=== PATIENT | male | born 1950 | race Caucasian/White ===

== ENCOUNTER → 2021-04-30 10:37 | Outpatient (BNVA) | payer OTHER, SELFPAY | PROVIDERS: PCP Internal Medicine; Visit Provider Urology | DX: E29.1 Testicular hypofunction (principal) | CPT/HCPCS: 99202 ==

== ENCOUNTER 2021-05-27 16:19 | Emergency (ER) | payer OTHER, SELFPAY ==
--- NOTE | ~2021-05-27 | XR_ITS ---
EXAMINATION: XR HUMERUS, LEFT CLINICAL INFORMATION: Fall. Left arm laceration. COMPARISON: None TECHNIQUE: AP and lateral views of the left humerus. FINDINGS: No acute fracture or dislocation. Severe glenohumeral joint space narrowing with bony remodeling and large marginal osteophytes. More moderate acromioclavicular osteoarthritis. Soft tissue defect along the medial aspect of the distal upper arm, consistent with the reported laceration. There is a cluster of tiny densities within the soft tissue laceration which could represent tiny foreign bodies measuring up to 0.2 cm. XR/XR humerus LT IMPRESSION: 1. Prominent soft tissue laceration along the medial aspect of the distal upper arm with possible tiny radiopaque foreign bodies. 2. No acute fracture or dislocation.
--- NOTE | ~2021-05-27 | CT_ITS ---
EXAMINATION: CT HEAD WITHOUT CONTRAST CT CERVICAL SPINE WITHOUT CONTRAST CLINICAL INFORMATION: Fall with head injury. No loss of consciousness. COMPARISON: None TECHNIQUE: Contiguous axial imaging was performed from the skull base to vertex without intravenous administration of contrast. Contiguous axial CT images of the cervical spine were obtained without contrast. Sagittal and coronal reformats were provided and reviewed. This CT examination was performed using dose optimization techniques as appropriate, variously including the following: *Automated exposure control. *Adjustment of mA and/or kV according to patient size (this includes techniques or standardized protocols for targeted exams where dose is matched to indication/reason for exam; i.e. extremities or head). *Use of iterative reconstruction technique. DLP: 1163 mGy-cm FINDINGS: HEAD: There is no evidence of acute intracranial hemorrhage or territorial infarction. No abnormal mass effect or midline shift is seen. Flfm-hu-[id number] matter differentiation is well preserved. No extra-axial fluid collections are identified. The ventricles are normal in size. There is no abnormal attenuation within the brain parenchyma. The osseous structures and soft tissues are normal. The mastoid air cells and visualized portions of the paranasal sinuses are well aerated. CERVICAL SPINE: Mild reversal of the normal cervical lordosis, which may be positional or related to muscular spasm. Minimal grade 1 anterolisthesis of C2 on C3. No acute fracture or subluxation. No loss of vertebral body height. Loss of intervertebral disc height with endplate degenerative changes and endplate osteophytes at C3 through C7. Mild multilevel bilateral facet arthropathy. No lytic or blastic osseous lesion. Unremarkable prevertebral soft tissues. No abnormal soft tissue mass or fluid collection. Thyroid within normal limits. Biapical nodular pleural thickening with emphysematous changes. Prominent multilevel bilateral neural foraminal stenosis. CT/CT cervical spine wo con IMPRESSION: HEAD: No acute intracranial hemorrhage or mass effect. CERVICAL SPINE: No acute fracture or subluxation. Mild reversal of the normal cervical lordosis, which may be positional or related to muscular spasm. Minimal grade 1 anterolisthesis of C2 on C3. Degenerative disc disease with bilateral facet arthropathy and neural foraminal stenosis at C3-C7.
[2021-05-27 16:22] VITALS: BP 147/84; PULSE 94; RESP 18; TEMP 37; O2SAT 97; BMI 24.6
[2021-05-27] MEDS: Acetaminophen 325 MG TABLET 975 MG PO (16:55)
[2021-05-27] MEDS: Diphth,Pertus(ACell),Tet Adult 0.5 ML SYRINGE IM (16:57)
[2021-05-27] MEDS: Lidocaine HCl 1 % MPF 5 ML VIAL SUBCUT (16:58)
--- NOTE | 2021-05-27 18:03 | ED.WOUNDLAC ---
HPI - Wound/Laceration General Chief Complaint: Wound/Laceration Stated Complaint: Fall Time Seen by Provider: 05/27/21 16:48 Source: patient Mode of arrival: ambulatory Limitations: no limitations History of Present Illness HPI narrative: Patient reports he was standing on a pole slipped and fell hitting his head on the right side and lacerating his left upper arm. Denies head injury or loss of consciousness or any other injuries complaints or concerns. Is not on any blood thinners. Is not up-to-date on tetanus. Onset (ago): minute(s) (Prior to arrival) Extremity Location: left: arm Place: outdoors Patient tetanus UTD: No Context: accidental Associated symptoms: pain Treatments prior to arrival: bandage Related Data Home Medications Medication Instructions Recorded Confirmed lisinopril 20 1 tab PO DAILY 04/30/21 mg-hydrochlorothiazide 12.5 mg tablet Previous Rx's Medication Instructions Recorded cephalexin 500 mg capsule 500 mg PO Q6H 7 Days #28 cap 05/27/21 oxycodone-acetaminophen 5 mg-325 1 tab PO Q6H PRN #5 tab 05/27/21 mg tablet (Percocet) Allergies Allergy/AdvReac Type Severity Reaction Status Date / Time No Known Allergies Allergy Mild N/A Verified 04/30/21 11:30 Review of Systems Review of Systems: Constitutional : No Fever, No Chills, Cardiovascular : No Chest Pain, No SOB Respiratory : No Dyspnea Gastrointestinal : No abdominal pain Musculoskeletal : No Joint Swelling Skin : positive skin laceration, No Foreign bodies, No rash, No surrounding erythema Neuro : Positive head injury, no loss of consciousness, no headaches, no focal weakness, no dizziness, no paresthesias, No Weakness, No Numbness/tingling Psych : No SI/HI/thoughts of self injury Yes all other systems are reviewed and are negative [facility] Past Medical History Attestation statement: The following information was validated with the patient. Medical History Anemia Eczema Hematuria Hypogonadism in male Tubular adenoma Social History Social History Advance Directives: No Advance Directives Information Provided: No Physical Exam Vital Signs: Vital Signs: Last Vital Signs Temp 98.6 F 05/27/21 16:22 Pulse 94 05/27/21 16:22 Resp 18 05/27/21 16:22 BP 147/84 H 05/27/21 16:22 Pulse Ox 97 05/27/21 16:22 Body Mass Index 24.6 vital signs have been reviewed as normal and appeared to be correct. Blood pressure hypertensive 147/84 Heart rate normal. Respiration rate normal. Temperature normal. Oxygen saturation normal. Appearance: Alert. Oriented X3. No acute distress. Head: Normal external exam. Normocephalic. Atraumatic. No Comer signs noted. No raccoon eyes noted Eyes: PERRLA. EOMI. Conjunctiva and sclera normal. Eyelids normal. ENT: Pharynx normal. Uvula midline. Moist mucous membranes. Neck: Normal inspection. Neck supple. FROM. No adenopathy. No meningeal signs. Nontender. No mid cervical or paraspinous musculature tenderness noted. No step-offs or deformities noted. Patient neuro intact balance this in all 4 extremities. Reflexes intact bilaterally this in all 4 extremities. CVS: Normal heart rate and rhythm. Heart sound normal. Pulses normal throughout. No murmurs/rales/gallops. Respiratory: No respiratory distress. Painless inspiration. Breath sounds normal. No wheezes/rales/rhonchi noted. Chest nontender. No accessory muscle usage noted or decreased air movement noted. Abdomen: Soft and nontender. Bowel sounds normal in all 4 quadrants. No distention noted. No organomegaly noted. No visible injury noted. Back: Full range of motion noted. No rashes/lesion/induration/fluctuance or signs of infection noted. Skin: Patient with 4 cm intermediate flap laceration to left upper arm right above the elbow no foreign bodies or active bleeding or signs of infection noted. The rest of the Skin warm and dry. Normal skin color. Normal skin turgor. No additional rashes/lesions noted. Extremities: Extremities exhibit normal range of motion. Extremities nontender. Neuro: Oriented X 3. No motor deficit. No sensory deficit. Reflexes normal. Normal steady gait. No focal neuro deficits noted. Vascular: + radial pulses/+ 2 distal pedal pulses/+2 dorsalis pedis b/l. Normal cap refill. No cyanosis noted to upper extremity nails and lower extremity toes nails. Course Course Course Narrative: 71-year-old male who is not on any blood thinners presenting to the ED with complaints of a fall and a laceration to his left upper arm after he slipped and fell while on a pole. Had head injury although no loss of consciousness. Not on any blood thinners. Tetanus not updated at this time. On exam patient is alert and oriented x3. No focal deficits are noted. Not in any acute distress. Has a 4 cm intermediate flap laceration to left upper arm no foreign bodies or signs of infection or active bleeding noted. Therefore CT scan of brain/cervical spine ordered at this time. Humerus x-ray ordered at this time. If CT scan of cervical spine and brain along with x-ray of humerus within normal limits will DC home with symptomatic treatment. Patient is now status post laceration repair was 10 sutures placed. Patient tolerated procedure well. No complications. Tetanus was updated at this time. Will DC home with symptomatic treatment antibiotics and instructions to return in 10-14 days for suture removal and to return if any new or worsening symptoms sooner than that. Patient understands agrees with this plan. Reevaluation(s) Reevaluation #1: - CT scan of brain/cervical spine revealed chronic changes no acute processes were noted. Left humerus x-ray reveals soft tissue swelling and possible radiopaque foreign bodies although on my exam I was unable to see any foreign bodies and I irrigated the wound multiple times. Therefore will DC home with antibiotics and explained to the patient that he may have foreign bodies in there and to follow up if any new or worsening symptoms although return in 10 days for suture removal. Patient understands agrees with this plan. Time: 18:38 [facility] - Wound/Laceration Medical Records Attestation: I reviewed the patient's medical records. Imaging Data CT scan of brain/cervical spine and humerus x-ray: Attestation: I personally reviewed and interpreted this imaging study as follows: Radiologist's impression: FINDINGS: No acute fracture or dislocation. Severe glenohumeral joint space narrowing with bony remodeling and large marginal osteophytes. More moderate acromioclavicular osteoarthritis. Soft tissue defect along the medial aspect of the distal upper arm, consistent with the reported laceration. There is a cluster of tiny densities within the soft tissue laceration which could represent tiny foreign bodies measuring up to 0.2 cm.? XR/XR humerus LT IMPRESSION: 1. Prominent soft tissue laceration along the medial aspect of the distal upper arm with possible tiny radiopaque foreign bodies. ? 2. No acute fracture or dislocation. FINDINGS: HEAD: There is no evidence of acute intracranial hemorrhage or territorial infarction. No abnormal mass effect or midline shift is seen. [id number] matter differentiation is well preserved. No extra-axial fluid collections are identified. The ventricles are normal in size. There is no abnormal attenuation within the brain parenchyma. The osseous structures and soft tissues are normal. The mastoid air cells and visualized portions of the paranasal sinuses are well aerated. CERVICAL SPINE: Mild reversal of the normal cervical lordosis, which may be positional or related to muscular spasm. Minimal grade 1 anterolisthesis of C2 on C3. No acute fracture or subluxation. No loss of vertebral body height. Loss of intervertebral disc height with endplate degenerative changes and endplate osteophytes at C3 through C7. Mild multilevel bilateral facet arthropathy. No lytic or blastic osseous lesion. Unremarkable prevertebral soft tissues. No abnormal soft tissue mass or fluid collection. Thyroid within normal limits. Biapical nodular pleural thickening with emphysematous changes. Prominent multilevel bilateral neural foraminal stenosis. ? CT/CT head/brain wo con IMPRESSION: HEAD: No acute intracranial hemorrhage or mass effect. ? CERVICAL SPINE: No acute fracture or subluxation. Mild reversal of the normal cervical lordosis, which may be positional or related to muscular spasm. Minimal grade 1 anterolisthesis of C2 on C3. Degenerative disc disease with bilateral facet arthropathy and neural foraminal stenosis at C3-C7. Procedures Laceration Laceration 1: Site: upper extremity Side (If applicable): left Size (cm): 4 Description: flap, irregular and clean Depth: simple, single layer Local Anesthetic: lidocaine 1% Amount of anesthesia used (mL): 5 Pre-repair: wound explored, irrigated extensively, deep structures intact and wound margins revised Skin layer closed with: nylon Size (cm): 4-0 Number of sutures: 10 Technique: simple, interrupted Discharge Plan Discharge Clinical Impression: Laceration, Fall, Head injury, Retained foreign body Patient Disposition: Home, Self-Care Instructions: Laceration (ED), Soft Tissue Foreign Body (ED), Head Injury (ED) Prescriptions: New cephalexin 500 mg capsule 500 mg PO Q6H 7 Days Qty: 28 RF: 0 oxycodone-acetaminophen [Percocet] 5-325 mg tablet 1 tab PO Q6H PRN (Reason: pain) Qty: 5 RF: 0 Referrals: Africa Leung PA [Emergency Midlevel Provider] - 10 days (for suture removal ) Dakotah Wiley MD [Primary Care Provider] - 2 days Print Language: Icelandic
== END 2021-05-27 18:51 | disposition home or self-care (01) ==
PROVIDERS: Emergency Provider Emergency Medicine Emergency Medical Services; PCP Internal Medicine
DX: S41.112A Laceration without foreign body of left upper arm, initial encounter (principal); M54.2 Cervicalgia; G44.309 Post-traumatic headache, unspecified, not intractable; W01.0XXA Fall on same level from slipping, tripping and stumbling without subsequent striking against object, initial encounter; Y93.9 Activity, unspecified; Y92.9 Unspecified place or not applicable; Y99.9 Unspecified external cause status
CPT/HCPCS: 12002; 70450; 72125; 73060; 90471; 90715; 99283; 99284

== ENCOUNTER 2021-06-08 10:47 | Emergency (ER) | payer OTHER, SELFPAY ==
[2021-06-08 11:46] VITALS: BP 152/73; PULSE 70; RESP 16; TEMP 36.9; O2SAT 100; BMI 29.9
--- NOTE | 2021-06-08 12:23 | ED_ITS ---
HPI - Recheck/Abnormal Lab/Rx General Chief Complaint: General Medical Stated Complaint: suture removal Time Seen by Provider: 06/08/21 12:13 Source: patient Mode of arrival: ambulatory Limitations: no limitations History of Present Illness complaint: suture/staple removal Initial visit (ago): day(s) (Twelve days) Initial visit for: laceration Returns today for: staple/stitch removal Symptoms since prior visit: no new symptoms Context: planned re-check Associated symptoms: none Treatments prior to arrival: given antibiotics on and given pain meds on Related Data Home Medications Medication Instructions Recorded Confirmed lisinopril 20 1 tab PO DAILY 04/30/21 mg-hydrochlorothiazide 12.5 mg tablet Previous Rx's Medication Instructions Recorded cephalexin 500 mg capsule 500 mg PO Q6H 7 Days #28 cap 05/27/21 oxycodone-acetaminophen 5 mg-325 1 tab PO Q6H PRN #5 tab 05/27/21 mg tablet (Percocet) cephalexin 500 mg capsule 500 mg PO Q6H 10 Days #40 cap 06/08/21 doxycycline hyclate 100 mg tablet 100 mg PO BID 10 Days #20 tab 06/08/21 Allergies Allergy/AdvReac Type Severity Reaction Status Date / Time No Known Allergies Allergy Mild N/A Verified 04/30/21 11:30 Review of Systems Review of Systems: Constitutional : No Fever, No Chills, Cardiovascular : No Chest Pain, No SOB Respiratory : No Dyspnea Gastrointestinal : No abdominal pain Musculoskeletal : No Joint Swelling Skin : positive healing skin laceration, No Foreign bodies, No rash, No surrounding erythema Neuro : No Weakness, No Numbness/tingling Psych : No SI/HI/thoughts of self injury Yes all other systems are reviewed and are negative [facility] Past Medical History Attestation statement: The following information was validated with the patient. Medical History Anemia Eczema Hematuria Hypogonadism in male Tubular adenoma Social History Social History Advance Directives: No Advance Directives Information Provided: No Physical Exam Vital Signs: Vital Signs: Last Vital Signs Temp 98.5 F 06/08/21 11:46 Pulse 70 06/08/21 11:46 Resp 16 06/08/21 11:46 BP 152/73 H 06/08/21 11:46 Pulse Ox 100 06/08/21 11:46 Body Mass Index 29.9 vital signs have been reviewed as normal and appeared to be correct. Blood pressure hypertensive 152/73. Heart rate normal. Respiration rate normal. Temperature normal. Oxygen saturation normal. Appearance: Alert. Oriented X3. No acute distress. Head: Normal external exam. Normocephalic. Atraumatic. Eyes: PERRLA. EOMI. Conjunctiva and sclera normal. Eyelids normal. ENT: Pharynx normal. Uvula midline. Moist mucous membranes. Neck: Normal inspection. Neck supple. FROM. CVS: Normal heart rate and rhythm. Respiratory: No respiratory distress. Painless inspiration. Back: Full range of motion noted. No rashes/lesion/induration/fluctuance or signs of infection noted. Skin: To left upper arm patient has [address] to wound with mild surrounding erythema. No fluctuance or purulent drainage is noted. The rest of the Skin warm and dry. Normal skin color. Normal skin turgor. No rashes/lesions/lacerations noted. Extremities: Extremities exhibit normal range of motion. Extremities nontender. Neuro: Oriented X 3. No motor deficit. No sensory deficit. Reflexes normal. Normal steady gait. No focal neuro deficits noted. Course Course Course Narrative: 71-year-old male presenting to the ED for suture removal after he was seen here approximately 12 days ago given Keflex and oxycodone reports he took as prescribed. He reports he has been placing antibiotic cream on it. I removed the 10 sutures and mild dehiscence therefore 3 Steri-Strips had to be placed. I explained to the patient that he needs to keep the wound clean and dry do not continue placing antibiotic treatment this is why the wound most likely be his. He also has mild surrounding erythema therefore patient with a cellulitic infection. No purulent drainage/fluctuance noted. Not consistent with an abscess. Will DC home antibiotics instructions return if any new or worsening symptoms to follow up with primary care provider. Patient understands agrees with this plan. MDM - Recheck/Abnormal Lab/Rx Medical Records Attestation: I reviewed the patient's medical records. Discharge Plan Discharge Clinical Impression: Visit for suture removal, Cellulitis of arm, left Patient Disposition: Home, Self-Care Instructions: Cellulitis (ED), Stitches Removal (ED) Prescriptions: New doxycycline hyclate 100 mg tablet 100 mg PO BID 10 Days Qty: 20 RF: 0 cephalexin 500 mg capsule 500 mg PO Q6H 10 Days Qty: 40 RF: 0 No Action cephalexin 500 mg capsule 500 mg PO Q6H 7 Days Qty: 28 RF: 0 oxycodone-acetaminophen [Percocet] 5-325 mg tablet 1 tab PO Q6H PRN (Reason: pain) Qty: 5 RF: 0 Referrals: Physician,Unknown [Primary Care Provider] - 2 days (your pcp) Print Language: Argentine
== END 2021-06-08 12:33 | disposition home or self-care (01) ==
PROVIDERS: Emergency Provider Emergency Medicine Emergency Medical Services
DX: L03.114 Cellulitis of left upper limb (principal); Z48.02 Encounter for removal of sutures; Z79.899 Other long term (current) drug therapy
CPT/HCPCS: 99283

== ENCOUNTER 2021-09-22 07:54 | Outpatient (REF) | payer OTHER, SELFPAY ==
[2021-09-22 10:01] LABS: Prostate Specific Antigen 0.87 ng/mL (<0.05-4.0)
[2021-09-23 06:06] LABS: Sex Hormone Binding Globulin 31 nmol/L (22-77)
[2021-09-23 07:46] LABS: Follicle Stimulating Hormone 3.3 mIU/mL (1.6-8.0); Lutenizing Hormone 0.4 mIU/mL (1.6-15.2)
[2021-09-26 19:41] LABS: Testosterone, Free 7.2 pg/mL (30.0-135.0); Testosterone, Total 43 ng/dL (250-1100)
== END 2021-09-22 07:55 | disposition home or self-care (01) ==
LOC: HO.US 07:54
PROVIDERS: Absent Provider Urology; PCP Internal Medicine; Visit Provider Internal Medicine
DX: N40.1 Benign prostatic hyperplasia with lower urinary tract symptoms (principal); E29.1 Testicular hypofunction; N13.8 Other obstructive and reflux uropathy; F17.200 Nicotine dependence, unspecified, uncomplicated; Z12.5 Encounter for screening for malignant neoplasm of prostate
CPT/HCPCS: 36415; 83001; 83002; 84153; 84270; 84402; 84403

== ENCOUNTER → 2021-10-01 08:10 | Outpatient (BNVA) | payer OTHER, SELFPAY | PROVIDERS: Visit Provider Urology | DX: Z13.89 Encounter for screening for other disorder (principal) | CPT/HCPCS: 99212 ==

== ENCOUNTER 2021-11-05 08:52 | Outpatient (REF) | payer OTHER, SELFPAY ==
[2021-11-05 10:28] LABS: Blood Urea Nitrogen 19 mg/dL (9-16); Estimated Glomerular Filt Rate > 60
== END 2021-11-05 08:53 | disposition home or self-care (01) ==
LOC: HO.LAB 08:52
PROVIDERS: Visit Provider Urology
DX: R39.15 Urgency of urination (principal)
CPT/HCPCS: 36415; 82565; 84520

== ENCOUNTER 2021-11-17 09:08 | Outpatient (REF) | payer OTHER, SELFPAY ==
--- NOTE | ~2021-11-17 | MR_ITS ---
EXAMINATION: MR BRAIN WITHOUT AND WITH CONTRAST CLINICAL INFORMATION: Testicular hypofunction. COMPARISON: Head CT 05/27/2021. TECHNIQUE: Multiplanar, multisequence imaging of the brain was performed before and after the intravenous administration of 3.5 mL of Gadavist. FINDINGS: There is no acute infarction, mass, hemorrhage, or extra-axial collection. No abnormal or unexpected intracranial enhancement is seen. The ventricles, sulci, and basilar cisterns are normal in size and configuration. Mild patchy foci of T2/FLAIR hyperintensity seen within the bilateral cerebral white matter. The pituitary gland demonstrates normal size and morphology. No discrete hypoenhancing lesion is seen to suggest microadenoma. The infundibulum inserts to the right of midline. The optic apparatus appears normal. The cavernous sinuses demonstrate symmetric enhancement. The hypothalamus appears normal. The flow voids of the major intracranial arteries appear intact. The bones and extracranial soft tissues are within normal limits. There is mild to moderate paranasal sinus mucosal thickening predominantly involving the ethmoids and left sphenoid sinus. The mastoid air cells are clear. MR/MR head/brain wo/w con IMPRESSION: No mass lesion, acute infarction, or abnormal intracranial enhancement. Normal appearance of the pituitary gland. No definite microadenoma identified.
== END 2021-11-17 09:09 | disposition home or self-care (01) ==
LOC: HO.MRI 09:08
PROVIDERS: Visit Provider Urology
DX: E29.1 Testicular hypofunction (principal)
CPT/HCPCS: 70553; A9585

== ENCOUNTER → 2022-04-29 09:41 | Outpatient (BNVA) | payer OTHER, SELFPAY | PROVIDERS: PCP Internal Medicine; Visit Provider Urology | DX: E29.1 Testicular hypofunction (principal) | CPT/HCPCS: 99212 ==

== ENCOUNTER 2022-08-16 09:55 | Outpatient (REF) | payer OTHER, SELFPAY ==
--- NOTE | 2022-08-16 | PFT_ITS ---
FLOWS: FEV1 105% of predicted at 2.74 L. FVC 105% of predicted at 3.65 L. FEV1 to FVC ratio of 0.75. No bronchodilator response. LUNG VOLUMES: Total lung capacity 103% of predicted at 6.27 L. Residual volume 114% of predicted at 2.58 L. Slow vital capacity 97% of predicted at 3.69 L. Expiratory reserve volume 48% of predicted at 0.44 L. Diffusion capacity is normal. IMPRESSION: No obstructive or restrictive ventilatory defect. No bronchodilator response. Essentially normal pulmonary function test. Melquiades Chamorro MD AP/MODL / [id number]
== END 2022-08-16 09:56 | disposition home or self-care (01) ==
LOC: HO.RESP 09:55
PROVIDERS: PCP Internal Medicine; Visit Provider Internal Medicine
DX: R06.09 Other forms of dyspnea (principal)
CPT/HCPCS: 94060; 94727; 94729

== ENCOUNTER → 2023-01-06 10:54 | Outpatient (BNVA) | payer OTHER, SELFPAY | PROVIDERS: PCP Internal Medicine; Visit Provider Urology | DX: E23.0 Hypopituitarism (principal) | CPT/HCPCS: 99212 ==

== ENCOUNTER 2023-03-31 12:58 | Emergency (ER) | payer OTHER, SELFPAY ==
--- NOTE | ~2023-03-31 | XR_ITS ---
EXAMINATION: XR CHEST CLINICAL INFORMATION: Chest pain. COMPARISON: None available. TECHNIQUE: 2 views of the chest were obtained. FINDINGS: No significant abnormality is noted involving the heart, lungs, mediastinum, bony thorax or soft tissues. XR/XR chest 2V IMPRESSION: No acute cardiopulmonary process.
--- NOTE | 2023-03-31 13:00 | ECG_ITS ---
Test Reason : cp Blood Pressure : / mmHG Vent. Rate : 078 BPM Atrial Rate : 078 BPM P-R Int : 160 ms QRS Dur : 084 ms QT Int : 388 ms P-R-T Axes : 066 031 055 degrees QTc Int : 442 ms Normal sinus rhythm Normal ECG When compared with ECG of 25-OCT-2007 11:02, No significant change was found Referred By: Gabriella Gomez Electronically Signed By:RADHA YORK MD
--- NOTE | 2023-03-31 13:01 | ED_ITS ---
HPI - General Adult General Chief complaint: Chest Pain Stated complaint: chest pain Time Seen by Provider: 03/31/23 16:02 Source: patient, RN notes reviewed and old records reviewed Mode of arrival: ambulatory Limitations: no limitations History of Present Illness HPI narrative: 73-year-old male with past medical history significant for hypertension, hypogonadism presents for evaluation abdominal pain, nausea, vomiting chest pain. He reports his symptoms started 3 days ago. He is unable to qualify his pain but states that it is ?moderate. ? Denies any history of abdominal surgeries Denies any sick contacts or anybody with similar symptoms at home Denies any history of heartburn Denies any fevers, chills, cough, shortness of breath No other complaints or concerns Related Data Home Medications Medication Instructions Recorded Confirmed albuterol sulfate 90 mcg/actuation 2 puff inhalation Q4-6H PRN 01/06/23 aerosol inhaler lisinopril 20 1 tab PO DAILY 01/06/23 mg-hydrochlorothiazide 25 mg tablet tamsulosin 0.4 mg capsule 0.4 mg PO DAILY 01/06/23 Previous Rx's Medication Instructions Recorded calcium carbonate 1,000 1 tab PO Q4-6H PRN dyspepsia #14 03/31/23 mg-simethicone 60 mg chewable tabs tablet (Maalox Advanced) ondansetron 4 mg disintegrating 4 mg PO Q8H PRN nausea and 03/31/23 tablet vomiting #20 tabs Allergies Allergy/AdvReac Type Severity Reaction Status Date / Time No Known Allergies Allergy Mild N/A Verified 01/06/23 11:45 Review of Systems Constitutional: Constitutional: Reports as per HPI, Denies chills, Denies fatigue, Denies fever(s) and Denies headache(s) ENT: Denies headache(s) Cardiovascular: Cardiovascular: Reports chest pain and Denies dyspnea Respiratory: Respiratory: Denies cough and Denies dyspnea Gastrointestinal: Gastrointestinal: Reports abdominal pain, Denies constipation, Reports nausea and Reports vomiting Genitourinary: Genitourinary: Denies difficulty urinating and Denies dysuria Neurologic: Denies headache(s) and Denies focal weakness Endocrine: Endocrine: Denies fatigue PMFSH Past Medical History Medical History Anemia Eczema Hematuria Hypogonadism in male Tubular adenoma Social History Social History Alcohol intake: never Smoked in Last 30 Days: Yes Use of substances other than those prescribed or required for medical reasons: No Advance Directives: No Advance Directives Information Provided: Yes Physical Exam ED Vital Signs: Vital Signs - 24 hr 03/31/23 13:05 03/31/23 16:36 Temperature 98.2 F 98.0 F Pulse Rate 96 79 Respiratory Rate 18 16 Blood Pressure 150/100 H 143/88 H Pulse Oximetry 95 94 Oxygen Delivery Method Room Air Room Air BMI result Body Mass Index 25.7 Const General: healthy appearing, comfortable, no acute distress, alert and awake Nutritional Appearance: well nourished Orientation/consciousness: patient oriented x3 HENMT Head: Yes normocephalic and Yes atraumatic Eyes Eyelids: Yes eyelids normal Conjunctivae: conjunctivae normal Sclerae: sclerae normal Corneas: corneas normal Pupils: Equal, round and reactive pupils present EOM: EOMs intact bilaterally Neck Neck: Yes full ROM Resp Effort & Inspection: normal respiratory effort, able to speak in complete sentences and not labored GI Inspection: No distended Palpation (GI): Soft to palpation, not firm, nontender, no guarding and not rigid Auscultation: normoactive bowel sounds Skin General skin exam: no rashes or lesions noted and elasticity normal Neuro General: patient oriented x3 Cranial nerves: Yes Equal, round and reactive pupils present and Yes Bilaterally intact EOM present Cognition (Neuro): normal cognition Extrem Other: Moving all extremities well without any obvious deformities Course Course Course Narrative: This is a rapid medical exam: Additional HPI, ROS, PE not included below will be deferred to primary provider. Patient is a 73-year-old male with history of anemia, hematuria, tubular adenoma, and hypogonadism presenting to the emergency department with complaint of intermittent chest pain, nausea, and vomiting for the past 3 days. Also reports dyspnea. Is a smoke but states not much. Denies any diarrhea. Denies abominal pain. BP 150/100, states has been taking his BP medication as prescribed. Plan: EKG, labs, CXR Reevaluation(s) Reevaluation #1: Patient re-evaluated, he reports he feels much better and his nausea has i mproved. Will discharge the patient with Maalox and Zofran. Time: 17:33 Medications Administered Discontinued Medications Generic Name Dose Route Start Last Admin Trade Name aYneth PRN Reason Stop Dose Admin Sodium Chloride 1,000 mls @ 999 mls/hr 03/31/23 16:30 03/31/23 16:58 Ns IV 03/31/23 17:30 999 mls/hr .Q1H1M ESAU Administration Ondansetron HCl 4 mg 03/31/23 16:22 03/31/23 16:58 Ondansetron Hcl 4 Mg/2 Ml Vial IVPUSH 03/31/23 16:23 4 mg ONCE ONE Administration Pantoprazole Sodium 40 mg 03/31/23 16:22 03/31/23 16:58 Pantoprazole Sodium 40 Mg/10 Ml Vial IVPUSH 03/31/23 16:23 40 mg ONCE ONE Administration Medical Decision Making Medical Decision Making [facility] Narrative: 73-year-old male presents for evaluation of abdominal pain, nausea vomiting and chest pain. His symptoms are most consistent with GERD. He reports he was seen at [facility] with the last 3 days and had a full workup. He believes he had a CT scan of the abdomen pelvis that did not show any concerning abnormalities. His labs today also did not show any significant concerning abnormalities. Will treat the patient's symptoms as GERD, I have very low suspicion for bowel obstruction or surgical abdomen. Will re-evaluate. Differential Diagnosis Gastroenteritis GERD Peptic ulcer disease Pancreatitis Acute appendicitis Bowel obstruction Lab Data [facility] Lab Attestation statement: I reviewed the patient's lab results. Patient has a mild anemia which is actually slightly improved when compared to baseline with a hemoglobin of 13.9 and hematocrit of 40.9. No left shift, no leukocytosis. Patient's sodium and potassium are within normal limits, his BUN is elevated 27, calcium to 11.2. Very slight increase in AST to 47. Lipase is normal at 9 03/31/23 13:25 03/31/23 13:25 Labs: Lab Results 03/31/23 03/31/23 03/31/23 Range/Units 13:25 13:25 13:25 WBC 7.8 (4.8-10.8) X10*3/uL RBC 4.98 (4.60-5.80) X10*6/uL Hgb 13.9 L (14.0-18.0) g/dl Hct 40.9 L (42.0-52.0) % MCV 82.1 (80.0-98.0) fL MCH 27.9 (27.0-33.0) pg MCHC 34.0 (31.0-36.0) g/dl RDW 13.3 (11.0-16.0) % Plt Count 271 (160-400) X10*3/uL MPV 9.7 (9.4-12.4) fL Immature Gran % (Auto) 0.5 H (0.0-0.4) % Neut % (Auto) 71.8 (45-73) % Lymph % (Auto) 18.1 L (20-40) % [facility] % (Auto) 9.3 (2-11) % Eos % (Auto) 0.0 (0-4) % Baso % (Auto) 0.3 (0-2) % Lymph # (Auto) 1.4 (1.2-4.9) X10*3/uL [facility] # (Auto) 0.7 (0.1-1.2) X10*3/uL Eos # (Auto) 0.0 (0.0-0.4) X10*3/uL Baso # (Auto) 0.0 (0.0-0.2) X10*3/uL Abs Immat Gran (auto) 0.04 H (0.00-0.03) X10*3/uL Absolute Neuts (auto) 5.6 (2.0-8.3) x10*3/uL Absolute Nucleated RBC 0.000 (0.0-0.012) X10*3/uL Nucleated RBC % (auto) 0.0 (0.0-0.2) /100WBC PT 12.3 (10.0-13.1) SEC INR 1.1 (0.9-1.1) Sodium 137 (135-145) mmol/L Potassium 3.9 (3.3-5.1) mmol/L Chloride 101 (96-108) mmol/L Carbon Dioxide 26 (22-29) mmol/L Anion Gap 14 (12-20) BUN 27 H (9-16) mg/dL Creatinine 0.97 (0.5-1.4) mg/dL Estim Creat Clear Calc 55.9 Estimated GFR > 60 Random Glucose 122 H (60-115) mg/dL Calcium 11.2 H (8.4-10.2) mg/dL Total Bilirubin 1.0 (0.0-1.0) mg/dL AST 47 H (5-37) U/L ALT 26 (0-40) U/L Alkaline Phosphatase 72 (39-117) U/L Troponin I High Sens (<3.5-35.0) ng/L Total Protein 8.3 H (6.5-8.0) g/dL Albumin 4.7 (3.5-5.0) g/dL Lipase 9 (8-78) U/L 03/31/23 Range/Units 13:25 WBC (4.8-10.8) X10*3/uL RBC (4.60-5.80) X10*6/uL Hgb (14.0-18.0) g/dl Hct (42.0-52.0) % MCV (80.0-98.0) fL MCH (27.0-33.0) pg MCHC (31.0-36.0) g/dl RDW (11.0-16.0) % Plt Count (160-400) X10*3/uL MPV (9.4-12.4) fL Immature Gran % (Auto) (0.0-0.4) % Neut % (Auto) (45-73) % Lymph % (Auto) (20-40) % [facility] % (Auto) (2-11) % Eos % (Auto) (0-4) % Baso % (Auto) (0-2) % Lymph # (Auto) (1.2-4.9) X10*3/uL [facility] # (Auto) (0.1-1.2) X10*3/uL Eos # (Auto) (0.0-0.4) X10*3/uL Baso # (Auto) (0.0-0.2) X10*3/uL Abs Immat Gran (auto) (0.00-0.03) X10*3/uL Absolute Neuts (auto) (2.0-8.3) x10*3/uL Absolute Nucleated RBC (0.0-0.012) X10*3/uL Nucleated RBC % (auto) (0.0-0.2) /100WBC PT (10.0-13.1) SEC INR (0.9-1.1) Sodium (135-145) mmol/L Potassium (3.3-5.1) mmol/L Chloride (96-108) mmol/L Carbon Dioxide (22-29) mmol/L Anion Gap (12-20) BUN (9-16) mg/dL Creatinine (0.5-1.4) mg/dL Estim Creat Clear Calc Estimated GFR Random Glucose (60-115) mg/dL Calcium (8.4-10.2) mg/dL Total Bilirubin (0.0-1.0) mg/dL AST (5-37) U/L ALT (0-40) U/L Alkaline Phosphatase (39-117) U/L Troponin I High Sens < 2.7 (<3.5-35.0) ng/L Total Protein (6.5-8.0) g/dL Albumin (3.5-5.0) g/dL Lipase (8-78) U/L Independent Interpretation I performed an independent interpretation of an: EKG and Plain X-Ray (No acute pathology of the chest) Interpretation: Normal sinus rhythm with a rate of 78 P 70. No ectopy or arrhythmia. No ST changes Radiology Impression Discussion of test interpretation with radiology: I have reviewed the radiologist's reading. (Normal chest x-ray) Tests considered The following testing was considered but not selected: CT abdomen pelvis, but patient reports that he artery had this done within the last few days Discharge Plan Discharge Clinical Impression: Abdominal pain Patient Disposition: Home, Self-Care Instructions: Gastroenteritis (ED) Additional Instructions: Your blood work today was reassuring. Your pain is most likely related to a stomach virus Drink lots of fluids, small sips at a time to help prevent further nausea and vomiting Use Zofran as needed for nausea Take Maalox for abdominal pain Call your primary doctor tomorrow to schedule follow-up Return for new or worsening symptoms Prescriptions: New ondansetron 4 mg tablet,disintegrating 4 mg PO Q8H PRN (Reason: nausea and vomiting) Qty: 20 0RF Maalox Advanced 1,000-60 mg tablet,chewable 1 tab PO Q4-6H PRN (Reason: dyspepsia) Qty: 14 0RF No Action lisinopril-hydrochlorothiazide 20-25 mg tablet 1 tab PO DAILY tamsulosin 0.4 mg capsule 0.4 mg PO DAILY albuterol sulfate 90 mcg/actuation HFA aerosol inhaler 2 puff inhalation Q4-6H PRN
[2023-03-31 13:05] VITALS: BP 150/100; PULSE 96; RESP 18; TEMP 36.8; O2SAT 95; BMI 25.7
[2023-03-31 13:37] LABS: MANUAL DIFF FLAG NO
[2023-03-31 13:39] LABS: Basophils Percent Auto 0.3 % (0-2); Hematocrit 40.9 % (42.0-52.0); Hemoglobin 13.9 g/dl (14.0-18.0); Imm Gran Abs Auto 0.04 X10*3/uL (0.00-0.03); Imm Gran Pct Auto 0.5 % (0.0-0.4); Lymphocytes Absolute Auto 1.4 X10*3/uL (1.2-4.9); Lymphocytes Percent Auto 18.1 % (20-40); Mean Corpuscular Hemoglobin 27.9 pg (27.0-33.0); Mean Corpuscular Volume 82.1 fL (80.0-98.0); Mean Platelet Volume 9.7 fL (9.4-12.4); Monocytes Absolute Auto 0.7 X10*3/uL (0.1-1.2); Monocytes Percent Auto 9.3 % (2-11); Neutrophils Absolute Auto 5.6 x10*3/uL (2.0-8.3); Neutrophils Percent Auto 71.8 % (45-73); Platelet Count 271 X10*3/uL (160-400); Red Blood Count 4.98 X10*6/uL (4.60-5.80); Red Cell Distribution Width 13.3 % (11.0-16.0); White Blood Count 7.8 X10*3/uL (4.8-10.8)
[2023-03-31 13:45] LABS: INTERNATIONAL NORM RATIO 1.1 (0.9-1.1); Prothrombin Time 12.3 SEC (10.0-13.1)
[2023-03-31 13:54] LABS: Alanine Aminotransferase 26 U/L (0-40); Albumin Level 4.7 g/dL (3.5-5.0); Alkaline Phosphatase 72 U/L (39-117); Anion Gap 14 (12-20); Aspartate Amino Transferase 47 U/L (5-37); Blood Urea Nitrogen 27 mg/dL (9-16); Calcium 11.2 mg/dL (8.4-10.2); Carbon Dioxide 26 mmol/L (22-29); Chloride 101 mmol/L (96-108); Creatinine Clr Calc Pharmacy 55.9; Estimated Glomerular Filt Rate > 60; Glucose Random 122 mg/dL (60-115); Lipase 9 U/L (8-78); Potassium 3.9 mmol/L (3.3-5.1); Sodium 137 mmol/L (135-145); Total Protein 8.3 g/dL (6.5-8.0)
[2023-03-31 13:58] LABS: Troponin-I High Sensitivity < 2.7 ng/L (<3.5-35.0)
--- OUTSIDE RECORDS SUMMARY | 2023-03-31 16:12 | XMS_ITS ---
Author Name Daron Veliz Address [address] [place] [address] Organization [facility] Address [address] [place] [address] Care Team Providers Care Machining And Assembly Supervisor Name Role Phone Daron Veliz Unavailable [phone] PROBLEMS Type Condition ICD9-CM Code UIL45-DE Code Onset Dates Condition Status SNOMED Code Problem Encounter for screening for malignant neoplasm of colon Z12.11 Active 461164439 Problem History of adenomatous polyp of colon Z86.010 Active 985341982 Problem Preprocedural examination Z01.818 Active 946954220996631 Problem Encounter for screening for malignant neoplasm of rectum Z12.12 Active 047331170 ALLERGIES No Known Allergies ENCOUNTERS Encounter Location Date Diagnosis [facility] [address] [place] [phone] Feb, [facility] [address] [place] [phone] Sep, [facility] [address] [place] [phone] May, [facility] Outpatient [address] [place], [place] [phone] May, [facility] [address] [place] [phone] Mar, [facility] [address] [place] [phone] Mar, [facility] Outpatient [address] [place], [place] [phone] Mar, [facility] [address] [place] [phone] Dec, [facility] [address] [place] [address] Dec, [facility] [address] [place] [address] Sep, Preprocedural examination Z01.818 ; History of adenomatous polyp of colon Z86.010 ; Encounter for screening for malignant neoplasm of colon Z12.11 and Encounter for screening for malignant neoplasm of rectum Z12.12 [facility] Outpatient [address] [place], [place] [phone] Sep, [facility] ER [address] [place], [place] [phone] Apr, IMMUNIZATIONS No Known Immunizations SOCIAL HISTORY Never Assessed REASON FOR REFERRAL FUNCTIONAL STATUS PLAN OF CARE Activity Details VITAL SIGNS Weight 146 lbs 2016-10-14 Height 64 in 2016-10-14 BMI 25.06 kg/m2 2016-10-14 Heart Rate 68 /min 2016-10-14 Blood pressure systolic 122 mm Hg Blood pressure diastolic 72 mm Hg 2016-09 MEDICATIONS Medication Instructions Dosage Frequency Start Date End Date Duration Status MiraLax (colon prep) - Orally begin at 5:00 p.m. the day before the procedure mixed with Gatorade or Crystal Light Apr, 1 day Active Dulcolax (colon prep) 5 MG Orally two tablets twice a day for one day take at 3:00 p.m and 7:00p.m. Apr, 1 day Active PROCEDURES No Known procedures RESULTS No Results REASON FOR VISIT Patient presents today for a colon screening recall, N/S, Patient presents today for a COLON RECALL, Pt no show, Patient presents today for SCREENING COLON, hx of polyps, screening, Can you order prep, hx of polyps,screening, r/s colonoscopy, hx of polyps, screening, cx procedure, patient presents today for recall colon Insurance Providers Health Insurance Type Health Plan Insurance Address Health Plan Insurance Phone Health Plan Insurance Name Health Plan Coverage Dates Member ID Patient Relationship to Subscriber Patient Address Patient Phone Patient Name Patient Date of Subscriber ID Subscriber Name Subscriber Date of Group No [employer] [address] [facility] [id number] [employer] kelli ELLE ELIAS [id number]
[2023-03-31 16:36] VITALS: BP 143/88; PULSE 79; RESP 16; TEMP 36.7; O2SAT 94
[2023-03-31] MEDS: Pantoprazole Sodium 40 MG/10 ML VIAL IVPUSH (16:58)
[2023-03-31] MEDS: 0.9 % Sodium Chloride 1,000 ML 999 ML IV (16:58)
[2023-03-31] MEDS: ondansetron HCL 4 MG/2 ML VIAL IVPUSH (16:58)
--- NOTE | 2023-03-31 17:01 | PC.NURSE ---
pt a&ox3, skin appropriate for ethnicity. respirations even and unlabored. lung sounds clear bilaterally. pt reports midsternal chest pain that has been occurring for 3-4 days now. pt reports the pain increases with food and soda intake. pt normal sinus on tele. vss.
[2023-03-31] MEDS: Magnesium Hydrox/Alum Hydrox 30 ML ORAL.SUSP PO (17:46)
== END 2023-03-31 17:52 | disposition home or self-care (01) ==
PROVIDERS: Registered Nurse Emergency; Emergency Provider Emergency Medicine
DX: R07.89 Other chest pain (principal); I10 Essential (primary) hypertension; R11.2 Nausea with vomiting, unspecified; R10.9 Unspecified abdominal pain; Z79.899 Other long term (current) drug therapy
CPT/HCPCS: 36415; 71046; 80053; 83690; 84484; 85025; 85610; 93005; 96374; 96375; 99284; 99285; J2405

== ENCOUNTER → 2023-03-31 13:00 | Outpatient (BNV) | payer OTHER, SELFPAY | PROVIDERS: Emergency Provider Emergency Medicine; Visit Provider Internal Medicine Cardiovascular Disease | DX: R07.9 Chest pain, unspecified (principal) | CPT/HCPCS: 93010 ==

== ENCOUNTER 2023-07-11 10:26 | Outpatient (REF) | payer OTHER, SELFPAY ==
[2023-07-11 11:36] LABS: MANUAL DIFF FLAG NO
[2023-07-11 11:41] LABS: Appearance Urine Clear; Color Urine Yellow; Glucose Urine UA Negative (Negative); Leukocyte Esterase Urine Trace (Negative); Nitrite Urine Negative (Negative); UMIC TRIGGER UA YES; Urine Blood Moderate (2+) (Negative); Urine Ketones Negative (Negative); Urine Protein Negative (Neg-Trace)
[2023-07-11 11:45] LABS: Bacteria Urine None Seen (None Seen); Hyaline Casts Urine 0-2 /LPF (0-2); RBC Urine >20 /HPF (0-2); Squamous Epithelial Cell Urine 0-2 /HPF (0-2); WBC Urine 0-5 /HPF (0-5)
[2023-07-11 11:46] LABS: Basophils Percent Auto 0.3 % (0-2); Eosinophils Percent Auto 0.5 % (0-4); Hematocrit 39.7 % (42.0-52.0); Hemoglobin 13.1 g/dl (14.0-18.0); Imm Gran Abs Auto 0.04 X10*3/uL (0.00-0.03); Imm Gran Pct Auto 0.5 % (0.0-0.4); Lymphocytes Absolute Auto 1.7 X10*3/uL (1.2-4.9); Lymphocytes Percent Auto 21.3 % (20-40); Mean Corpuscular Volume 84.8 fL (80.0-98.0); Monocytes Absolute Auto 0.6 X10*3/uL (0.1-1.2); Monocytes Percent Auto 7.4 % (2-11); Neutrophils Absolute Auto 5.5 x10*3/uL (2.0-8.3); Platelet Count 305 X10*3/uL (160-400); Red Blood Count 4.68 X10*6/uL (4.60-5.80); Red Cell Distribution Width 13.6 % (11.0-16.0); White Blood Count 7.8 X10*3/uL (4.8-10.8)
[2023-07-11 11:59] LABS: Estimated Average Glucose 117 mg/dL; Hemoglobin A1c % 5.7 % (<6.0)
[2023-07-11 12:19] LABS: Creatinine Urine 74.08 mg/dL; Microalbum/Creatinine Ratio Ur 16.1 ug/mg cr (<30)
[2023-07-11 12:20] LABS: Syphilis Screen Nonreactive (Nonreactive)
[2023-07-11 12:22] LABS: Alanine Aminotransferase 17 U/L (0-40); Albumin Level 4.5 g/dL (3.5-5.0); Alkaline Phosphatase 70 U/L (39-117); Anion Gap 13 (12-20); Aspartate Amino Transferase 21 U/L (5-37); Bilirubin Total 0.4 mg/dL (0.0-1.0); Blood Urea Nitrogen 20 mg/dL (9-16); Calcium 10.2 mg/dL (8.4-10.2); Carbon Dioxide 29 mmol/L (22-29); Chloride 98 mmol/L (96-108); Cholesterol 169 mg/dL (<200); Estimated Glomerular Filt Rate > 60; Glucose Random 98 mg/dL (60-115); HDL Cholesterol 66 mg/dL (>40); LDL Cholesterol Calculated 91 mg/dL (<100); Potassium 4.1 mmol/L (3.3-5.1); Sodium 136 mmol/L (135-145); Triglycerides 61 mg/dL (<150)
[2023-07-11 12:23] LABS: TSH reflex Free T4 1.09 uIU/mL (0.32-4.0)
[2023-07-11 12:31] LABS: Folate 15.3 ng/mL (> or = 4.0); Vitamin B12 889 pg/mL (200-900)
[2023-07-11 13:22] LABS: CT PCR NOT DETECTED (Not Detect.); NG PCR NOT DETECTED (Not Detect.)
[2023-07-12 09:19] LABS: HBS Num1 178.46 mIU/mL (0-7.99); HBc Num1 6.47 S/CO (0.00-0.79); HBsAGNum1 0.33 S/CO (0.00-0.99); HIV AB/AG Nonreactive (Nonreactive); HIV Num 1 0.05 S/CO (0.00-0.99); Hepatitis B Surface Antigen Negative (Negative); ~HepC Num1 0.16 S/CO (0.00-0.79); ~Hepatitis B Surface Antibody REACTIVE (Nonreactive); ~Hepatitis C Antibody Nonreactive (Nonreactive)
[2023-07-12 11:46] LABS: HBc Num2 6.38 S/CO; HBc Num3 6.35 S/CO
[2023-07-12 11:47] LABS: Hepatitis B Core Antibody Reactive (Nonreactive)
[2023-07-13 17:53] LABS: TS Negative Control Passed; TS Panel A 1; TS Panel B 0; TS Positive Control Passed; TSpotTB Negative (Negative)
[2023-07-15 01:53] LABS: VITAMIN D (1,25 OH) D3 48 pg/mL; Vit D (1,25-Dihydroxy) Total 48 pg/mL (18-72); Vitamin D (1,25 OH) D2 <8 pg/mL
[2023-07-19 16:04] LABS: Testosterone, Free 5.7 pg/mL (30.0-135.0); Testosterone, Total 60 ng/dL (250-1100)
== END 2023-07-11 10:27 | disposition home or self-care (01) ==
LOC: HO.HHCL 10:26
PROVIDERS: Visit Provider Student in an Organized Health Care Education/Training Program
DX: Z00.00 Encounter for general adult medical examination without abnormal findings (principal); Z20.2 Contact with and (suspected) exposure to infections with a predominantly sexual mode of transmission; Z12.5 Encounter for screening for malignant neoplasm of prostate; Z13.220 Encounter for screening for lipoid disorders; Z13.21 Encounter for screening for nutritional disorder; Z13.1 Encounter for screening for diabetes mellitus; Z13.29 Encounter for screening for other suspected endocrine disorder
CPT/HCPCS: 0353U; 80053; 80061; 81001; 82043; 82570; 82607; 82652; 82746; 83036; 84153; 84402; 84403; 84443; 85025; 86481; 86704; 86706; 86780; 86803; 87340; 87389

== ENCOUNTER 2023-09-07 11:48 | Outpatient (REF) | payer OTHER, SELFPAY ==
[2023-09-07 13:14] LABS: MANUAL DIFF FLAG NO
[2023-09-07 13:32] LABS: Basophils Percent Auto 0.1 % (0-2); Eosinophils Percent Auto 0.2 % (0-4); Hematocrit 38.8 % (42.0-52.0); Hemoglobin 12.9 g/dl (14.0-18.0); Imm Gran Abs Auto 0.03 X10*3/uL (0.00-0.03); Imm Gran Pct Auto 0.3 % (0.0-0.4); Lymphocytes Absolute Auto 2.3 X10*3/uL (1.2-4.9); Lymphocytes Percent Auto 24.9 % (20-40); Mean Corpuscular HGB Conc 33.2 g/dl (31.0-36.0); Mean Corpuscular Hemoglobin 28.4 pg (27.0-33.0); Mean Corpuscular Volume 85.3 fL (80.0-98.0); Mean Platelet Volume 10.2 fL (9.4-12.4); Monocytes Absolute Auto 0.8 X10*3/uL (0.1-1.2); Monocytes Percent Auto 8.6 % (2-11); Neutrophils Absolute Auto 5.9 x10*3/uL (2.0-8.3); Neutrophils Percent Auto 65.9 % (45-73); Platelet Count 331 X10*3/uL (160-400); Red Blood Count 4.55 X10*6/uL (4.60-5.80); Red Cell Distribution Width 14.1 % (11.0-16.0)
[2023-09-07 13:50] LABS: Iron 126 mcg/dL (45-160); Percent Iron Saturation 40 % (15-50); Total Iron Binding Capacity 315 mcg/dL (228-428); Unsaturated Iron Binding 189 ug/dL
[2023-09-07 14:14] LABS: Ferritin 93 ng/mL (20-250)
== END 2023-09-07 11:49 | disposition home or self-care (01) ==
LOC: HO.HHCL 11:48
PROVIDERS: Visit Provider Student in an Organized Health Care Education/Training Program
DX: D64.9 Anemia, unspecified (principal)
CPT/HCPCS: 36415; 82728; 83540; 85025

== ENCOUNTER 2023-10-19 11:47 | Outpatient (AMB) | payer OTHER, SELFPAY ==
--- OUTSIDE RECORDS SUMMARY | 2023-10-19 11:49 | XMS_ITS | Patient Health Record ---
Author Name Unknown Organization [facility] Address [address] [place] [address] Care Team Providers Care Patrol Community Service Officer Name Role Phone Светлана Menjivar Primary Care Provider Daron Leiva Unavailable [phone] ALLERGIES No Known Allergies REASON FOR REFERRAL No Information MEDICATIONS Medication SIG (Take, Route, Frequency, Duration) Notes Start Date End Date Status MiraLax (colon prep) 17 GM/SCOOP 1 238Gm bottle mixed with Gatorade or Crystal Light Orally begin at 5:00 p.m. the day before the procedure for 1 day 09/13/2023 Active Dulcolax (colon prep) 5 MG take at 3:00 p.m and 7:00p.m. Orally two tablets twice a day for one day for 1 day 09/13/2023 Active SOCIAL HISTORY Tobacco Use: Social History Observation Description Date Details (start date - stop date) Current Smoker NA - NA Sex Assigned At : Social History Observation Description Sex Assigned At Unknown Tobacco Use/Smoking Question Answer Notes Patient is a current smoker How often do you smoke cigarettes? every day How many cigarettes a day do you smoke? 5 or les s Alcohol Screen Question Answer Notes Did you have a drink containing alcohol in the p ast year? No Points 0 Interpretation Negative PROBLEMS Problem Type ICD Code Onset Dates Problem Status W/U Status Risk SNOMED Code Notes Problem History of adenomatous polyp of colon (Z86.010) Active confirmed 195252814 Problem Encounter for screening for malignant neoplasm of colon (Z12.11) Active confirmed 258627154 Problem Encounter for screening for malignant neoplasm of rectum (Z12.12) Active confirmed Screening for malignant neoplasm of rectum (014060526) Problem Preprocedural examination (Z01.818) Active confirmed 21225200 Encounters Encounter Location Date Provider Diagnosis [facility] [address] [place] [phone] 02/22/[address] [facility] [address] [place] [phone] 09/13/2023 Daron Veliz History of adenomato us polyp of colon Z86.010 ; Preprocedural examination Z01.818 and Encounter for screening for malignant neoplasm of colon Z12.11 [facility] [address] [place] [phone] 02/22/[address] [facility] [address] [place] [phone] 09/13/2023 Daron Veliz ASSESSMENTS Encounter Date Diagnosis Assessment Notes Treatment Notes Treatment Clinical Notes 09/13/2023 History of adenomatous polyp of colon (ICD-10 - Z86.010) 09/13/2023 Preprocedural examination (ICD-10 - Z01.818) 09/13/2023 Encounter for screening for malignant neoplasm of colon (ICD-10 - Z12.11) PLAN OF TREATMENT Future Test Test Name Order Date COLONOSCOPY 10/14/2016 COLONOSCOPY 09/13/2023 Next Appt Details Provider Name:Daron Veliz , 11/28/2023 01:40:00 PM, [address] [place] [address] , [place], [place], [id number], Insurance Providers Payer Name Payer Address Payer Phone Subscriber Number Group Number Insured Name Patient Relationship to Insured Coverage Start Date Coverage End Date [facility] [address] Attn Claims ARSH Ansari [id number] ELLE ELIAS Self - patient is the insured MEDICAL (GENERAL) HISTORY Medical History History ICD Code Screening Colonoscopy 10-15-2 009--1 small tubular adenoma, diverticulosis, internal hemorrhoids Kidney stones Denies UT,DM,CVA,Lung disease,renal dise ase Mild chronic anemia Negative screening colonoscopy in 05/2017 HTN Surgical History Surgery Date(Month/Year)
--- NOTE | 2023-10-19 11:50 | A.OFFVIS_ITS ---
Intake Intake Visit Reasons: microscopic hematuria Intake Note: Patient is Present for Follow Up Microscopic Hematuria Urology Medication: Tamsulosin Antibiotic Allergies:None Blood Thinners: None Allergies No Known Allergies Allergy (Mild, Verified 10/19/23 11:52) N/A HPI HPI Comments History of Present Illness Details Gonzales is a pleasant male. He is a patient of . 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, imaging, cystoscopy Hypogonadism Low testosterone detected during evaluation with PCP Does not experience any fatigue, loss of muscle or general decline in energy Does not appear to have normal production of LH Laboratories - 10/09 T 125 - 10/10 T 43, LH 0.4, FSH 3.3, SHBG 31 Imaging - 12/08 Normal pituitary MRI [facility] Medical History Tubular adenoma Anemia Eczema Hematuria Hypogonadism in male Social History Alcohol intake: never Review of Systems Const Denies chills and Denies fever(s) Card Reports no additional complaints and Denies syncope Resp Denies cough GI Denies abdominal pain and Denies heartburn Reports as per HPI and Denies change in libido Neuro Denies syncope Psych Denies change in libido Endo Denies change in libido Physical Exam Const General: cooperative, healthy appearing, comfortable and no acute distress Orientation/consciousness: patient oriented x3 HEENT Face and sinus: Yes normal facial exam Mouth: moist mucous membranes Neck Neck: Yes normal visual inspection, Yes full ROM and Yes trachea midline Chest Chest palpation & inspection: normal inspection of the chest Resp Effort & Inspection: normal respiratory effort, able to speak in complete sente nces and no respiratory distress GI Inspection: Yes normal to inspection Back/Spine/Pelvis Cervical Spine: normal cervical lordosis Thoracic/Lumbar Spine: thoracic and lumbar spine normal to inspection Skin General skin exam: no rashes or lesions noted Neuro General: patient oriented x3, gait normal, tone normal and moves all extremities Extrem General: Yes normal to inspection and Yes capillary refill normal Results AMB Urinalysis, Automated UA Leukoctes 0 Brad/uL Last Edit by Tamela Valverde A on 10/19/23 12:04 UA Nitrite Negative Last Edit by Tamela Valverde, A on 10/19/23 12:04 UA Urobilinogen 0.2 mg/dL Last Edit by Tamela Valverde, RMA on 10/19/23 12:0 4 UA Protein 0 mg/dL Last Edit by Tamela Valverde, A on 10/19/23 12:04 UA pH 5.5 Last Edit by Tamela Valverde A on 10/19/23 12:04 UA Blood 200 Jack/uL Last Edit by Tamela Valverde RMA on 10/19/23 12:04 UA Specific [place] 1.020 Last Edit by Tamela Valverde A on 10/19/23 12: 04 UA Ketone Negative Last Edit by Tamela Valverde, A on 10/19/23 12:04 UA Bilirubin 0 mg/dL Last Edit by Tamela Deckerdinorah A on 10/19/23 12:04 UA Glucose 0 mg/dL Last Edit by Tamela Deckerdinorah A on 10/19/23 12:04 Assessment & Plan Assessment & Plan (1) Microscopic hematuria: Code(s): R31.29 - Other microscopic hematuria Plan Imaging Cystoscopy Orders: Orders Urine Cytology Today R31.29 - Other microscopic hematuria AMB Urinalysis Automated Today Z13.9 - Encounter for screening, unspecified US retroperitoneal limited Today R31.29 - Other microscopic hematuria Patient Instructions: Imaging studies, laboratory and physical exam results were discussed and reviewed in detail. No major barriers to patient understanding were identified. An opportunity to ask questions regarding the treatment plan was provided. All questions were answered. The patient expressed understanding and agreement with the above treatment plan. The patient is aware they should contact our office by phone for worsening of their current condition or the appearance of new urologic symptoms. Compliance is encouraged with any medications and followup testing that is ordered. It is a privilege to participate in the urologic care of your patient. If you have any questions or concerns regarding treatment for the above conditions, or other urologic issues, please do not hesitate to contact me. The office telephone contact is [phone]. This note is constructed using voice recognition software. While every effort has been made to ensure accuracy hse coordinator errors may have been included. Yours sincerely, Dr Osmel Hughes MD, [facility] - Urology Providers of Expert, Compassionate Care for the Genitourinary System Coding Level of Care Code Est Pt Level 4 (21380) Diagnoses Microscopic hematuria R31.29
== END 2023-10-19 12:11 | disposition home or self-care (01) ==
LOC: HO.HUSH 11:47
PROVIDERS: Visit Provider Urology
DX: R31.29 Other microscopic hematuria (principal); Z13.9 Encounter for screening, unspecified
CPT/HCPCS: 99214

== ENCOUNTER 2023-10-19 11:47 | Outpatient (REF) | payer OTHER, SELFPAY ==
[2023-10-19 16:47] LABS: Urine Cytology See Pathology rpt
== END 2023-10-19 11:48 | disposition home or self-care (01) ==
LOC: HO.LAB 11:47
PROVIDERS: Visit Provider Urology
DX: R31.29 Other microscopic hematuria (principal); E29.1 Testicular hypofunction; Z79.899 Other long term (current) drug therapy
CPT/HCPCS: 81003; 88112; 99212

== ENCOUNTER 2023-11-10 10:05 | Outpatient (REF) | payer OTHER, SELFPAY ==
--- NOTE | ~2023-11-10 | US_ITS ---
EXAMINATION: US RETROPERITONEAL LIMITED (RENAL ONLY) CLINICAL INFORMATION: Other microscopic hematuria. COMPARISON: CT abdomen and pelvis 06/05/2019. Renal ultrasound 10/20/2018. TECHNIQUE: Real-time imaging of the kidneys. FINDINGS: RIGHT KIDNEY: 9.8 x 4.6 x 4.6 cm (SAG x AP x TRV). The kidney is normal in size, contour, and echogenicity. Renal cortical thickness is normal. No renal calculi or hydronephrosis. Multiple parapelvic cysts the largest measuring 1.3 cm, simple appearing, not requiring follow-up. LEFT KIDNEY: 10.0 x 5.5 x 4.3 cm (SAG x AP x TRV). The kidney is normal in size, contour, and echogenicity. Renal cortical thickness is normal. No renal calculi or hydronephrosis. Multiple parapelvic cysts the largest measuring 1.1 cm, simple appearing, not requiring follow-up. US/US retroperitoneal limited IMPRESSION: 1. No nephrolithiasis or hydronephrosis. 2. Bilateral parapelvic cysts the largest measuring up to 1.3 cm, simple appearing, not requiring follow-up.
== END 2023-11-10 10:06 | disposition home or self-care (01) ==
LOC: HO.US 10:05
PROVIDERS: Visit Provider Urology
DX: R31.29 Other microscopic hematuria (principal)
CPT/HCPCS: 76775

== ENCOUNTER 2023-11-23 09:45 | Outpatient (AMB) | payer OTHER, SELFPAY ==
--- NOTE | 2023-11-23 09:51 | A.OFFVIS_ITS ---
Intake Intake Visit Reasons: Cysto/US(set) Intake Note: Patient presents today for a Cystoscopy procedure Meds: (Tamsulosin) Allergies to Antibiotic: No Known Allergies Blood Thinner: None Urinalysis test clear for Cysto? Yes Disposable Uro-G Cystoscope Cannula Lot: [id number] Exp: 01/30/2025 Patient stated he is not taking Tamsulosin Jewel Hole Gauger Required: No Accompanied by: Self / Same As Patient Allergies No Known Allergies Allergy (Mild, Verified 11/28/23 00:24) N/A HPI HPI Comments History of Present Illness Details Gonzales is a pleasant male. He is a patient of . 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 Cytology normal Imaging no abnormality detected Hypogonadism Low testosterone detected during evaluation with PCP Does not experience any fatigue, loss of muscle or general decline in energy Does not appear to have normal production of LH Laboratories - 10/09 T 125 - 10/10 T 43, LH 0.4, FSH 3.3, SHBG 31 Imaging - 12/08 Normal pituitary MRI PFS Medical History (Updated 11/28/23 @ 08:25 by Chad Trammell MD) HTN (hypertension) Renal calculi Tubular adenoma Anemia Eczema Hematuria Hypogonadism in male Surgical History (Updated 11/24/23 @ 14:48 by Ashanti Armenta RN) Hx of lithotripsy H/O colonoscopy Social History (Updated 11/24/23 @ 14:49 by Ashanti Armenta RN) Alcohol intake: never Patient Tobacco Use Status: Current everyday Tobacco user Tobacco use type: Cigarette Cigarettes Per Day: 5 Smoked in Last 30 Days: No Use of substances other than those prescribed or required for medical reasons: No Advance Directives: No Advance Directives Information Provided: No Review of Systems Const Denies chills and Denies fever(s) Card Reports no additional complaints and Denies syncope Resp Denies cough GI Denies abdominal pain and Denies heartburn Reports as per HPI and Denies change in libido Neuro Denies syncope Psych Denies change in libido Endo Denies change in libido Physical Exam Const General: cooperative, healthy appearing, comfortable and no acute distress Orientation/consciousness: patient oriented x3 HEENT Face and sinus: Yes normal facial exam Mouth: moist mucous membranes Neck Neck: Yes normal visual inspection, Yes full ROM and Yes trachea midline Chest Chest palpation & inspection: normal inspection of the chest Resp Effort & Inspection: normal respiratory effort, able to speak in complete sentences and no respiratory distress GI Inspection: Yes normal to inspection Back/Spine/Pelvis Cervical Spine: normal cervical lordosis Thoracic/Lumbar Spine: thoracic and lumbar spine normal to inspection Skin General skin exam: no rashes or lesions noted Neuro General: patient oriented x3, gait normal, tone normal and moves all extremities Extrem General: Yes normal to inspection and Yes capillary refill normal Office Procedures Cystoscopy Consent Discussed risk and benefit or proposed procedure with the patient. Information consent for procedure given to the patient. Discussed technical aspects, risks, benefits and alternatives in full. Addressed all of the patient's questions and concerns regarding the procedure. The patient demonstrated knowledge and understanding. They wish to proceed with this procedure. Preparation The patient was prepped in the usual manner. A material liaison was present and in the room. Genitalia was prepped with betadine solution in a sterile manner. Lidocaine Jelly 2% was placed into the urethra and 16Fr flexible Olympus cystoscope was inserted into the meatus after adequate lubrication. Procedure Meatus non circumcised Urethra anterior and posterior urethra normal Prostatic Urethra unremarkable Bladder examination with retroflexion of cystoscope Bladder Orifices normal shape and position Bladder Capacity medium Trabeculations grade 1 Cellule Formation yes Diverticulum Formation none Mucosal Erythema IC type pattern Bladder Tumor - [id number] DISPOSABLE SCOPE URO-G FLEXIBLE SCOPE Procedure code (CPT) selection complete Office Meds lidocaine HCl 2 % mucosal jelly in applicator Performing Provider: Osmel Hughse MD Performing Location: [facility] Administered by: Trisha Stafford RN on 11/23/23 10:07 Dose Route Admin Location Dispensed Lot Number Expiration Date ND [employer]oc[employer] Instructor 10 mL intra-urethral 10 mL nitrofurantoin monohydrate/macrocrystals 100 mg capsule Performing Provider: Osmel Hughes MD Performing Location: [facility] Administered by: Trisha Stafford RN on 11/23/23 10:07 Dose Route Admin Location Dispensed Lot Number Expiration Date NDC Vocational Horticulture Instructor 100 mg PO 1 cap naproxen 500 mg tablet Performing Provider: Osmel Hughes MD [facility] Administered by: Trisha Stafford RN on 11/23/23 10:07 Dose Route Admin Location Dispensed Lot Number Expiration Date NDC Vocational Horticulture Instructor 500 mg PO 1 tab Results AMB Urinalysis, Automated UA Leukoctes 0 Brad/uL Last Edit by Symone Calvin CMA on 11/23/23 10 :12 UA Nitrite Negative Last Edit by Symone Calvin CMA on 11/23/23 10: 12 UA Urobilinogen 0.2 mg/dL Last Edit by Symone Calvin CMA on 4 10:12 UA Protein 0 mg/dL Last Edit by Symone Calvin CMA on 11/23/23 10:12 UA pH 6.0 Last Edit by Symone Calvin CMA on 11/23/23 10:12 UA Blood 200 Jack/uL Last Edit by Symone Calvin CMA on 11/23/23 10:1 2 UA Specific Marlette 1.020 Last Edit by Symone Calvin CMA on 10:12 UA Ketone Negative Last Edit by Symone Calvin CMA on 11/23/23 10:1 2 UA Bilirubin 0 mg/dL Last Edit by Symone Calvin CMA on 11/23/23 10: 12 UA Glucose 0 mg/dL Last Edit by Symone Calvin CMA on 11/23/23 10:12 Results Reviewed Results Reviewed: Laboratory Last Values Urine pH (Auto) 6.0 11/23/23 10:06 Specific Marlette (Auto) 1.020 11/23/23 10:06 Urine Protein (Auto) 0 mg/dL 11/23/23 10:06 Glucose (UA)(Auto) 0 mg/dL 11/23/23 10:06 Urine Ketones (Auto) Negative 11/23/23 10:06 Urine Blood (Auto) 200 Jack/uL 11/23/23 10:06 Urine Nitrite (Auto) Negative 11/23/23 10:06 Urine Bilirubin (Auto) 0 mg/dL 11/23/23 10:06 Urine Urobilinogen (Auto) 0.2 mg/dL 11/23/23 10:06 Leukocyte Esterase (Auto) 0 Brad/uL 11/23/23 10:06 Assessment & Plan Assessment & Plan (1) Gonadotropin deficiency syndrome, 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 No major barriers to patient understanding were identified. An opportunity to ask questions regarding the treatment plan was provided. All questions were answered. The patient expressed understanding and agreement with the above treatment plan. The patient is aware they should contact our office by phone for worsening of their current condition or the appearance of new urologic symptoms. Compliance is encouraged with any medications and followup testing that is ordered. It is a privilege to participate in the urologic care of your patient. If you have any questions or concerns regarding treatment for the above conditions, or other urologic issues, please do not hesitate to contact me. The office telephone contact is [phone]. This note is constructed using voice recognition software. While every effort has been made to ensure accuracy skin former errors may have been included. Yours sincerely, Dr Osmel Hughes MD, [facility] - Urology Providers of Expert, Compassionate Care for the Genitourinary System Coding Level of Care Code Est Pt Level 3 (15268) Diagnoses Gonadotropin deficiency syndrome, male E23.0 Microscopic hematuria R31.29 CPT Codes Cystoscopy - CPT: 38393-[id number] ([id number])
== END 2023-11-23 11:12 | disposition home or self-care (01) ==
PROVIDERS: Visit Provider Urology
DX: E23.0 Hypopituitarism (principal); R31.29 Other microscopic hematuria
CPT/HCPCS: 52000; 99213

== ENCOUNTER → 2023-11-23 09:45 | Outpatient (BNVA) | payer OTHER, SELFPAY | PROVIDERS: Visit Provider Urology | DX: E23.0 Hypopituitarism (principal); R31.29 Other microscopic hematuria | CPT/HCPCS: 52000; 81003; 99212 ==

== ENCOUNTER 2023-11-28 00:18 | Emergency (ER) | payer OTHER, SELFPAY ==
--- NOTE | 2023-11-28 | ECG_ITS ---
Test Reason : CHEST PAIN Blood Pressure : / mmHG Vent. Rate : 058 BPM Atrial Rate : 058 BPM P-R Int : 168 ms QRS Dur : 088 ms QT Int : 466 ms P-R-T Axes : 070 051 061 degrees QTc Int : 457 ms Sinus bradycardia with marked sinus arrhythmia Otherwise normal ECG When compared with ECG of 31-MAR-2023 13:03, No significant change was found Referred By: Generic ED Physician Electronically Signed By:RADHA YORK MD
[2023-11-28 00:24] VITALS: BP 180/90; BP 182/105; PULSE 61; PULSE 87; RESP 20; TEMP 36.4; O2SAT 100; O2SAT 96; BMI 24.0
[2023-11-28 01:48] LABS: Basophils Percent Auto 0.2 % (0-2); Hematocrit 39.1 % (42.0-52.0); Hemoglobin 13.6 g/dl (14.0-18.0); Imm Gran Abs Auto 0.04 X10*3/uL (0.00-0.03); Imm Gran Pct Auto 0.3 % (0.0-0.4); Lymphocytes Absolute Auto 0.7 X10*3/uL (1.2-4.9); Lymphocytes Percent Auto 5.2 % (20-40); MANUAL DIFF FLAG SCAN; Mean Corpuscular HGB Conc 34.8 g/dl (31.0-36.0); Mean Corpuscular Hemoglobin 28.2 pg (27.0-33.0); Mean Corpuscular Volume 81.1 fL (80.0-98.0); Mean Platelet Volume 9.2 fL (9.4-12.4); Monocytes Absolute Auto 0.5 X10*3/uL (0.1-1.2); Monocytes Percent Auto 3.5 % (2-11); Neutrophils Absolute Auto 12.5 x10*3/uL (2.0-8.3); Neutrophils Percent Auto 90.8 % (45-73); Platelet Count 259 X10*3/uL (160-400); Red Blood Count 4.82 X10*6/uL (4.60-5.80); Red Cell Distribution Width 13.5 % (11.0-16.0); SCAN SMEAR FLAG 1; White Blood Count 13.8 X10*3/uL (4.8-10.8)
[2023-11-28 02:08] LABS: SLIDE REVIEW VERIFIED
[2023-11-28 02:29] LABS: Alanine Aminotransferase 19 U/L (0-40); Albumin Level 4.4 g/dL (3.5-5.0); Alkaline Phosphatase 58 U/L (39-117); Anion Gap 20 (12-20); Aspartate Amino Transferase 28 U/L (5-37); Bilirubin Total 0.6 mg/dL (0.0-1.0); Blood Urea Nitrogen 28 mg/dL (9-16); Calcium 9.8 mg/dL (8.4-10.2); Carbon Dioxide 26 mmol/L (22-29); Chloride 97 mmol/L (96-108); Creatinine Clr Calc Pharmacy 51.1; Estimated Glomerular Filt Rate > 60; Glucose Random 134 mg/dL (60-115); Potassium 3.8 mmol/L (3.3-5.1); Sodium 139 mmol/L (135-145)
[2023-11-28 03:27] LABS: Troponin-I High Sensitivity < 2.7 ng/L (<3.5-35.0)
--- NOTE | 2023-11-28 04:10 | ED.ABDPAIN ---
HPI - Abdominal Pain General Chief Complaint: Nausea/Vomiting/Diarrhea Stated Complaint: N/V AFTER DRINKING HALF A CONTAINER OF MIRALAX Time Seen by Provider: 11/28/23 03:59 Source: patient Mode of arrival: EMS Limitations: no limitations History of Present Illness HPI narrative: 73-year-old male history of hypertension, renal calculi, anemia, eczema, opiate use disorder who presents emergency department for abdominal pain nausea and vomiting. Patient is a poor informant and is difficult to get information from him. He states he has a procedure tomorrow which may be a colonoscopy. He states that he had to drink a bottle of medicine to help him move his bowels. States he drank the bottle at 21:00 hours and shortly after that he developed nausea and vomiting. Since vomiting he has had diffuse abdominal pain. He states this sharp pain he has had similar pain in the past. He states he has had no bowel movements since drinking the bottle of medicine. Patient states that he is on methadone and who states that he did inject heroin 2 days prior Related Data Home Medications Medication Instructions Recorded Confirmed lisinopril 20 1 tab PO DAILY 01/06/23 11/24/23 mg-hydrochlorothiazide 25 mg tablet tamsulosin 0.4 mg capsule 0.4 mg PO DAILY 01/06/23 11/24/23 Allergies Allergy/AdvReac Type Severity Reaction Status Date / Time No Known Allergies Allergy Mild N/A Verified 11/28/23 00:24 Review of Systems Review of Systems Yes all other systems are reviewed and are negative [facility] Past Medical History [facility] Narrative: Social history: He does smoke cigarettes. He denies alcohol use. He states that he was on methadone. He did use injection heroin 2 days prior Medical History (Updated 11/28/23 @ 08:25 by Chad Trammell MD) HTN (hypertension) Renal calculi Tubular adenoma Anemia Eczema Hematuria Hypogonadism in male Surgical History (Updated 11/24/23 @ 14:48 by Ashanti Armenta RN) Hx of lithotripsy H/O colonoscopy Social History Social History (Updated 11/24/23 @ 14:49 by Ashanti Armenta RN) Alcohol intake: never Patient Tobacco Use Status: Current everyday Tobacco user Tobacco use type: Cigarette Cigarettes Per Day: 5 Smoked in Last 30 Days: No Use of substances other than those prescribed or required for medical reasons: No Advance Directives: No Advance Directives Information Provided: No Physical Exam ED Vital Signs: Vital Signs - 24 hr 11/28/23 00:24 Temperature 97.5 F Pulse Rate 61 Respiratory Rate 20 Blood Pressure 182/105 H Pulse Oximetry 100 Oxygen Delivery Method Room Air BMI result Body Mass Index 24.0 Vital signs revealed an elevated blood pressure of 182/105 Exam: General: Awake, patient appears agitated Head: Normocephalic, atraumatic EENT: PERRL, Lids normal, sclera normal, conjunctiva normal, nose normal , ears normal, throat without erythema or exudates Neck: Supple, no adenopathy Lung: breath sounds symmetric, no wheezing, rales or rhonchi Chest: symmetric movement, nontender Heart: regular rate and rhythm, normal S1, S2 no murmurs or rubs Abdomen: soft, mild diffuse tenderness, nondistended, normal bowel sounds Back: no vertebral tenderness, no CVAT Extremities: no deformities, moves all extremities symmetrically Neuro: Awake, alert, oriented, normal speech, cranial nerves intact, moves all extremities symmetrically Psych: Pleasant, cooperative Medical Decision Making Medical Decision Making MDM Narrative: 73-year-old male history of hypertension, renal calculi, anemia, eczema, opiate use disorder who presents emergency department for abdominal pain nausea and vomiting. Patient is a poor informant and is difficult to get information from him. He states he has a procedure tomorrow which may be a colonoscopy. He states that he had to drink a bottle of medicine to help him move his bowels. States he drank the bottle at 21:00 hours and shortly after that he developed nausea and vomiting. Since vomiting he has had diffuse abdominal pain. He states this sharp pain he has had similar pain in the past. He states he has had no bowel movements since drinking the bottle of medicine.Patient states that he is on methadone and who states that he did inject heroin 2 days prior. Vital signs did reveal an elevated blood pressure. Abdominal exam revealed mild diffuse tenderness. Differential diagnosis: ?Includes but is not limited to gastritis, peptic ulcer disease, pancreatitis Following evaluation was ordered: CBC, CMP, troponin, EKG Patient was initially treated with the following: Normal saline x1 L, Toradol 30 mg IV Course: My interpretation patient's laboratory evaluation is as follows: Elevated white blood count 85996. Elevated BUN 28. Elevated glucose 134. Troponin was below detectable limits. Patient's 12 EKG was unremarkable. The patient's pain did improve with the above treatment. I recommended that the patient take Tylenol 1000 mg every 6 hours as needed for pain and that he should follow-up with his provider who scheduled the procedure to discuss whether he can go through with the procedure or not. The patient eloped prior to getting his discharge instructions. Admission/Observation Consideration of admission/observation: Escalation of care including admission/observation considered Lab Data MDM Lab Attestation statement: I reviewed the patient's lab results. 11/28/23 01:42 11/28/23 02:03 Labs: Lab Results 11/28/23 11/28/23 Range/Units 01:42 02:03 WBC 13.8 H (4.8-10.8) X10*3/uL RBC 4.82 (4.60-5.80) X10*6/uL Hgb 13.6 L (14.0-18.0) g/dl Hct 39.1 L (42.0-52.0) % MCV 81.1 (80.0-98.0) fL MCH 28.2 (27.0-33.0) pg MCHC 34.8 (31.0-36.0) g/dl RDW 13.5 (11.0-16.0) % Plt Count 259 (160-400) X10*3/uL MPV 9.2 L (9.4-12.4) fL Immature Gran % (Auto) 0.3 (0.0-0.4) % Neut % (Auto) 90.8 H (45-73) % Lymph % (Auto) 5.2 L (20-40) % [place] % (Auto) 3.5 (2-11) % Eos % (Auto) 0.0 (0-4) % Baso % (Auto) 0.2 (0-2) % Lymph # (Auto) 0.7 L (1.2-4.9) X10*3/uL [place] # (Auto) 0.5 (0.1-1.2) X10*3/uL Eos # (Auto) 0.0 (0.0-0.4) X10*3/uL Baso # (Auto) 0.0 (0.0-0.2) X10*3/uL Abs Immat Gran (auto) 0.04 H (0.00-0.03) X10*3/uL Absolute Neuts (auto) 12.5 H (2.0-8.3) x10*3/uL Absolute Nucleated RBC 0.000 (0.0-0.012) X10*3/uL Nucleated RBC % (auto) 0.0 (0.0-0.2) /100WBC Smear Tech's Comments VERIFIED Sodium 139 (135-145) mmol/L Potassium 3.8 (3.3-5.1) mmol/L Chloride 97 (96-108) mmol/L Carbon Dioxide 26 (22-29) mmol/L Anion Gap 20 (12-20) BUN 28 H (9-16) mg/dL Creatinine 1.06 (0.5-1.4) mg/dL Estim Creat Clear Calc 51.1 Estimated GFR > 60 Random Glucose 134 H (60-115) mg/dL Calcium 9.8 (8.4-10.2) mg/dL Total Bilirubin 0.6 (0.0-1.0) mg/dL AST 28 (5-37) U/L ALT 19 (0-40) U/L Alkaline Phosphatase 58 (39-117) U/L Troponin I High Sens < 2.7 (<3.5-35.0) ng/L Total Protein 8.0 (6.5-8.0) g/dL Albumin 4.4 (3.5-5.0) g/dL Independent Interpretation I performed an independent interpretation of an: EKG Interpretation: My interpretation patient's 12 EKG done at 01:34 hours is as follows: Sinus bradycardia with a rate of 58, normal QRS interval, QRS duration, and QTC interval, no ST segment elevation, no ST segment depression, no PACs, no PVCs, no significant T-wave abnormalities. Chronic Conditions Patient?s care impacted by: Hypertension Medications Administered Discontinued Medications Generic Name Dose Route Start Last Admin Trade Name Freq PRN Reason Stop Dose Admin Ketorolac Tromethamine 30 mg 11/28/23 04:08 11/28/23 04:15 Ketorolac Tromethamine 15 Mg/Ml Vial IVPUSH 11/28/23 04:09 30 mg ONCE STA Administration Ondansetron HCl 4 mg 11/28/23 04:08 11/28/23 04:15 Ondansetron Hcl 4 Mg/2 Ml Vial IVPUSH 11/28/23 04:09 4 mg ONCE ONE Administration Discharge Plan Discharge Clinical Impression: Abdominal pain Qualifiers: Abdominal location: generalized Qualified Code(s): R10.84 - Generalized abdominal pain Patient Disposition: Elopement Additional Instructions: Patient was given verbal instructions and eloped prior to getting written instructions Prescriptions: No Action lisinopril-hydrochlorothiazide 20-25 mg tablet 1 tab PO DAILY tamsulosin 0.4 mg capsule 0.4 mg PO DAILY Interventions: ED Discharge Assessment Last Done: 11/28/23 04:48 Discharge Date/Time: 11/28/23 04:49
[2023-11-28] MEDS: Ketorolac Tromethamine 15 MG/ML VIAL 30 MG IVPUSH (04:15)
[2023-11-28] MEDS: ondansetron HCL 4 MG/2 ML VIAL IVPUSH (04:15)
== END 2023-11-28 04:49 | disposition left against medical advice (07) ==
PROVIDERS: Emergency Provider Emergency Medicine Emergency Medical Services
DX: R10.84 Generalized abdominal pain (principal); I10 Essential (primary) hypertension; F11.20 Opioid dependence, uncomplicated
CPT/HCPCS: 36415; 80053; 84484; 85025; 93005; 96374; 96375; 99284; 99285; J1885; J2405

== ENCOUNTER → 2023-11-28 01:34 | Outpatient (BNV) | payer OTHER, SELFPAY | PROVIDERS: Emergency Provider Emergency Medicine Emergency Medical Services; Visit Provider Internal Medicine Cardiovascular Disease | DX: R07.9 Chest pain, unspecified (principal) | CPT/HCPCS: 93010 ==

== ENCOUNTER 2024-02-10 14:14 | Outpatient (REF) | payer OTHER, SELFPAY ==
[2024-02-10 16:32] LABS: Hematocrit 35.2 % (42.0-52.0); Hemoglobin 11.9 g/dl (14.0-18.0); Immature Retic Fraction 11.3 % (2.3-13.4); Mean Corpuscular HGB Conc 33.8 g/dl (31.0-36.0); Mean Corpuscular Hemoglobin 28.7 pg (27.0-33.0); Mean Corpuscular Volume 84.8 fL (80.0-98.0); Mean Platelet Volume 10.4 fL (9.4-12.4); Platelet Count 249 X10*3/uL (160-400); Red Blood Count 4.15 X10*6/uL (4.60-5.80); Red Cell Distribution Width 13.2 % (11.0-16.0); Reticulocyte Percent 1.3 % (0.5-1.8); Reticulocytes Absolute 0.052 X10*6/uL (0.026-0.095); White Blood Count 8.9 X10*3/uL (4.8-10.8)
[2024-02-10 16:46] LABS: Estimated Average Glucose 120 mg/dL; Hemoglobin A1c % 5.8 % (<6.0)
[2024-02-10 16:50] LABS: C Reactive Protein 0.17 mg/dL (< or = 0.50); Iron 111 mcg/dL (45-160); Lactate Dehydrogenase 200 U/L (118-273); Percent Iron Saturation 38 % (15-50); Total Iron Binding Capacity 292 mcg/dL (228-428); Unsaturated Iron Binding 181 ug/dL
[2024-02-10 17:07] LABS: Ferritin 71 ng/mL (20-250)
[2024-02-10 17:09] LABS: Folate 13.6 ng/mL (> or = 4.0); Vitamin B12 661 pg/mL (200-900)
[2024-02-10 18:05] LABS: Erythrocyte Sedimentation Rate 16 MM/HR (0-15)
[2024-02-14 18:38] LABS: IgA 609 mg/dL (70-320); IgG 905 mg/dL (600-1540); IgM 76 mg/dL (50-300)
[2024-02-14 22:24] LABS: PES - Abn Protein Band 1 0.4 g/dL (NONE DETECTED); Prot Elec - Alpha1 0.2 g/dL (0.2-0.3); Prot Elec - Alpha2 0.7 g/dL (0.5-0.9); Prot Elec - Beta 1 0.4 g/dL (0.4-0.6); Prot Elec - Beta 2 0.4 g/dL (0.2-0.5); Prot Elec - Gamma 1.1 g/dL (0.8-1.7); Prot Elec - Total Protein 6.8 g/dL (6.1-8.1)
[2024-02-18 12:33] LABS: Haptoglobin 151 mg/dL (43-212)
== END 2024-02-10 14:15 | disposition home or self-care (01) ==
LOC: HO.HHCL 14:14
PROVIDERS: Visit Provider Student in an Organized Health Care Education/Training Program
DX: D64.9 Anemia, unspecified (principal); R73.03 Prediabetes
CPT/HCPCS: 36415; 82607; 82728; 82746; 82784; 83010; 83036; 83540; 83615; 84165; 85027; 85045; 85652; 86140; 86334

== ENCOUNTER → 2024-03-28 12:42 | Outpatient (BNV) | payer OTHER, SELFPAY | PROVIDERS: PCP Student in an Organized Health Care Education/Training Program; Referring Provider Student in an Organized Health Care Education/Training Program; Visit Provider Internal Medicine | DX: D47.2 Monoclonal gammopathy (principal) | CPT/HCPCS: 99204; G2211 ==

== ENCOUNTER 2024-05-02 07:22 | Emergency (ER) | payer OTHER, SELFPAY ==
[2024-05-02 07:40] VITALS: BP 192/101; PULSE 59; RESP 16; TEMP 37; O2SAT 100; BMI 23.1
--- NOTE | 2024-05-02 07:56 | PC.NURSE ---
This RN called PACU/OR to make them aware pt would not be coming to his scheduled 0840am colonoscopy as he checked into ED for evaluation.
[2024-05-02 08:28] LABS: Basophils Percent Auto 0.2 % (0-2); Hematocrit 39.3 % (42.0-52.0); Hemoglobin 13.7 g/dl (14.0-18.0); Imm Gran Abs Auto 0.08 X10*3/uL (0.00-0.03); Imm Gran Pct Auto 0.5 % (0.0-0.4); Lymphocytes Absolute Auto 0.7 X10*3/uL (1.2-4.9); Lymphocytes Percent Auto 4.4 % (20-40); MANUAL DIFF FLAG SCAN; Mean Corpuscular HGB Conc 34.9 g/dl (31.0-36.0); Mean Corpuscular Hemoglobin 28.2 pg (27.0-33.0); Mean Platelet Volume 9.1 fL (9.4-12.4); Monocytes Absolute Auto 0.6 X10*3/uL (0.1-1.2); Monocytes Percent Auto 3.9 % (2-11); Neutrophils Absolute Auto 14.6 x10*3/uL (2.0-8.3); Platelet Count 263 X10*3/uL (160-400); Red Blood Count 4.85 X10*6/uL (4.60-5.80); Red Cell Distribution Width 13.2 % (11.0-16.0); SCAN SMEAR FLAG 1; White Blood Count 16.1 X10*3/uL (4.8-10.8)
[2024-05-02 08:38] LABS: Anion Gap 18 (12-20); Blood Urea Nitrogen 18 mg/dL (9-16); Calcium 10.8 mg/dL (8.4-10.2); Carbon Dioxide 25 mmol/L (22-29); Chloride 99 mmol/L (96-108); Estimated Glomerular Filt Rate > 60; Glucose Random 188 mg/dL (60-115); Magnesium 1.9 mg/dL (1.6-2.6); Potassium 4.5 mmol/L (3.3-5.1); Sodium 137 mmol/L (135-145)
[2024-05-02 08:48] LABS: SLIDE REVIEW VERIFIED
--- NOTE | 2024-05-02 09:11 | ED_ITS ---
HPI - Nausea/Vomiting/Diarrhea General Chief complaint: General Medical Stated complaint: took medication from [facility], doesnt feel well Time Seen by Provider: 05/02/24 08:49 Source: patient, old records reviewed and filter tender jelly Mode of arrival: ambulatory Limitations: no limitations History of Present Illness ED Provider: HAYLEE SWANSON Narrative: 74 yo male with PMH of MGUS, HTN, hematuria, opiate use disorder here with c/o drinking colonoscopy prep after the 2nd dose started to have severe n/v and abdominal cramps - he notes this is the 2nd time he has been sick from this reaction. He has not eaten or drank anything and feels very weak. He tried to stand and fell but no headstrike. He is having colonoscopy here for colon cancer surveillance. He is not sure why he took the drink again as he had similar reaction in the past and was just as sick. He keeps stating I don't know why I did this again, it was a mistake. Seen for same 11/28/23 same complaint and LWCT at that time. MD elicited complaint: nausea, vomiting and abdominal pain Pertinent past history: other Onset (ago): hour(s) (8) Description of vomiting: watery Description of diarrhea: watery Associated nausea: Yes Associated abdominal pain: Yes Location of pain: diffuse Radiation: diffuse Pain consistency: constant Severity: severe Quality: cramping Exacerbating factors: eating and movement Relieving factors: none Context: other (states happens when he tries to do colon prep) Associated symptoms: loss of appetite, malaise, nausea/vomiting and weakness Related Data Home Medications ?Medication ?Instructions ?Recorded ?Confirmed lisinopril 20 1 tab PO DAILY 01/06/23 04/30/24 mg-hydrochlorothiazide 25 mg tablet tamsulosin 0.4 mg capsule 0.4 mg PO DAILY 01/06/23 04/30/24 Previous Rx's ?Medication ?Instructions ?Recorded ondansetron 4 mg disintegrating 4 mg PO Q8H PRN nausea and 05/02/24 tablet vomiting #20 tabs Allergies Allergy/AdvReac Type Severity Reaction Status Date / Time No Known Allergies Allergy Mild N/A Verified 05/02/24 07:45 Review of Systems 2 Review of Systems: Constitutional : No Weight loss, No Fever, No Chills ENT/Mouth : No sore throat, No Rhinorrhea Eyes: No Swelling, No Redness Cardiovascular : No Chest Pain, No SOB, NoEdema Respiratory : No Cough, No Sputum, No Wheezing Gastrointestinal : Positive Nausea, Positive Vomiting, positive Diarrhea, positive abdominal Pain, No Hematochezia, No Melena Genitourinary : No Dysuria, No Urinary Frequency, No Hematuria, No Urgency Musculoskeletal : No joint pain, No Myalgias, No Joint Swelling Skin : No Skin Lesions, No rash Neuro : No Weakness, No Numbness, No Dizziness, No Headache Psych : No Anxiety/Panic, No Depression Heme/Lymph: No Bruising, No Lymphadenopathy Endocrine : No Polyuria, No Polydipsia All other systems reviewed and are negative. Gastrointestinal: Gastrointestinal: Reports nausea PMFSH Past Medical History Attestation statement: The following information was validated with the patient. Source: old records reviewed Medical History HTN (hypertension) Renal calculi Tubular adenoma Anemia Eczema Hematuria Hypogonadism in male Surgical History Hx of lithotripsy H/O colonoscopy Social History Social History Household Members: None Alcohol intake: never Patient Tobacco Use Status: Current everyday Tobacco user Tobacco use type: Cigarette Smoked in Last 30 Days: Yes Use of substances other than those prescribed or required for medical reasons: No Advance Directives: No Advance Directives Information Provided: No service: No Current occupational status: unemployed Gender identity: Male Physical Exam 2 Vital Signs: Vital Signs: Last Vital Signs Temp 98.6 F 05/02/24 07:40 Pulse 59 05/02/24 07:40 Resp 20 05/02/24 09:58 BP 192/101 H 05/02/24 07:40 Pulse Ox 100 05/02/24 07:40 O2 Del Method Room Air 05/02/24 07:40 BMI result Body Mass Index 23.1 Appearance: Alert. Oriented X3. No acute distress. Eyes: Pupils equal, round and reactive to light. ENT: Pharynx mildly dry MM Neck: Normal inspection. Neck supple. CVS: Normal heart rate and rhythm. Pulses normal. Respiratory: No respiratory distress. Breath sounds normal. Abdomen: Soft and mild diffuse ttp no rebound or guarding Skin: Skin warm and dry. Normal skin color. Normal skin turgor. Extremities: No lower extremity edema. Neuro: Oriented X 3. No motor deficit. No sensory deficit. Medications Administered Discontinued Medications Generic Name Dose Route Start Last Admin Trade Name Yaneth PRN Reason Stop Dose Admin Lactated Ringer's 1,000 mls @ 999 mls/hr 05/02/24 09:06 05/02/24 09:57 Lr IV 05/02/24 10:06 999 mls/hr .Q1H1M ONE Administration Lactated Ringer's 1,000 mls @ 999 mls/hr 05/02/24 09:07 05/02/24 10:40 Lr IV 05/02/24 10:07 999 mls/hr .Q1H1M ONE Administration Lorazepam 0.5 mg 05/02/24 09:06 05/02/24 09:57 Lorazepam 2 Mg/Ml Vial IVPUSH 05/02/24 09:07 0.5 mg STAT STA Administration Morphine Sulfate 4 mg 05/02/24 09:06 05/02/24 09:58 Morphine Sulfate 4 Mg/Ml Cartridge IVPUSH 05/02/24 09:07 4 mg ONCE ONE Administration Protocol Ondansetron HCl 4 mg 05/02/24 09:06 05/02/24 09:57 Ondansetron Hcl 4 Mg/2 Ml Vial IVPUSH 05/02/24 09:07 4 mg ONCE ONE Administration Medical Decision Making Medical Decision Making [facility] Narrative: 74 yo male with PMH of MGUS, HTN, hematuria, opiate use disorder here with c/o recurrent reaction to colon prep cramps n/v and not feeling well with weakness at this time will need basic labs, IVF x 2L, supportive medications. He has no localized ttp and states this happened before which I can confirm seen for same in November. At this time no localized pain to suggest appendicitis or biliary colic. Differential Diagnosis Differential Diagnoses: The differential diagnosis associated with the presentation includes viral syndrome, adverse reaction, withdrawal, abdominal pain Admission/Observation Consideration of admission/observation: Escalation of care including admission/observation considered tolerated PO wbc count likely due to vomiting but states he is eating and drinking patient is asking to leave Lab Data [facility] Lab Attestation statement: I reviewed the patient's lab results. 05/02/24 08:20 05/02/24 08:20 Labs: Lab Results 08/14/24 Range/Units 08:20 WBC 16.1 H (4.8-10.8) X10*3/uL RBC 4.85 (4.60-5.80) X10*6/uL Hgb 13.7 L (14.0-18.0) g/dl Hct 39.3 L (42.0-52.0) % MCV 81.0 (80.0-98.0) fL MCH 28.2 (27.0-33.0) pg MCHC 34.9 (31.0-36.0) g/dl RDW 13.2 (11.0-16.0) % Plt Count 263 (160-400) X10*3/uL MPV 9.1 L (9.4-12.4) fL Immature Gran % (Auto) 0.5 H (0.0-0.4) % Neut % (Auto) 91.0 H (45-73) % Lymph % (Auto) 4.4 L (20-40) % [place] % (Auto) 3.9 (2-11) % Eos % (Auto) 0.0 (0-4) % Baso % (Auto) 0.2 (0-2) % Lymph # (Auto) 0.7 L (1.2-4.9) X10*3/uL [place] # (Auto) 0.6 (0.1-1.2) X10*3/uL Eos # (Auto) 0.0 (0.0-0.4) X10*3/uL Baso # (Auto) 0.0 (0.0-0.2) X10*3/uL Abs Immat Gran (auto) 0.08 H (0.00-0.03) X10*3/uL Absolute Neuts (auto) 14.6 H (2.0-8.3) x10*3/uL Absolute Nucleated RBC 0.000 (0.0-0.012) X10*3/uL Nucleated RBC % (auto) 0.0 (0.0-0.2) /100WBC Smear Tech's Comments VERIFIED Sodium 137 (135-145) mmol/L Potassium 4.5 (3.3-5.1) mmol/L Chloride 99 (96-108) mmol/L Carbon Dioxide 25 (22-29) mmol/L Anion Gap 18 (12-20) BUN 18 H (9-16) mg/dL Creatinine 0.89 (0.5-1.4) mg/dL Estim Creat Clear Calc 60.0 Estimated GFR > 60 Random Glucose 188 H (60-115) mg/dL Calcium 10.8 H D (8.4-10.2) mg/dL Magnesium 1.9 (1.6-2.6) mg/dL Independent Interpretation I performed an independent interpretation of an: EKG Interpretation: Rate: 59 Rhythm: sinus bradycardia [place]: normal Normal P waves. Normal LAY. Normal QRS complex. ST T wave : flat t wave aVL, no SHANI qTC: 473 prior studies: no acute ischemia The study has been interpreted contemporaneously by me. . Independent Historian Clinical information obtained from an independent historian. History obtained from or confirmed by: Friend External Record Review External record reviewed: Inpatient record Prescription Management I considered prescription management with: Other (zofran) Critical Care Time Critical Care Time Critical Care Time: Yes Total Critical Care Time: 40 Attestation: IVF x 2L, IV morphine improved pain with repeat assessment, review of records I attest to this time spent taking care of the patient Discharge Plan Discharge Clinical Impression: Nausea & vomiting Qualifiers: Vomiting type: unspecified Qualified Code(s): R11.2 - Nausea with vomiting, unspecified Patient Disposition: Home, Self-Care Instructions: Acute Nausea and Vomiting (ED) Additional Instructions: return for worsening symptoms, pain, fevers, inability to eat or drink or any other concerns follow up with GI doctor today call to talk to them about rescheduling your colonscopy Risk Factors/Clinical Indicators/Treatments Call to establish and follow up with a gastrointestinal specialist. Llame para establecer y hacer seguimiento?con un especialista gastrointestinal. Prescriptions: New ondansetron 4 mg tablet,disintegrating 4 mg PO Q8H PRN (Reason: nausea and vomiting) Qty: 20 0RF No Action lisinopril-hydrochlorothiazide 20-25 mg tablet 1 tab PO DAILY tamsulosin 0.4 mg capsule 0.4 mg PO DAILY Print Language: Bahamian
--- NOTE | 2024-05-02 09:22 | ECG_ITS ---
Test Reason : ABDOMINAL PAIN Blood Pressure : / mmHG Vent. Rate : 059 BPM Atrial Rate : 059 BPM P-R Int : 162 ms QRS Dur : 084 ms QT Int : 478 ms P-R-T Axes : 059 057 065 degrees QTc Int : 473 ms Normal sinus rhythm possible Premature atrial complexes Otherwise normal ECG When compared with ECG of 28-NOV-2023 01:34, No significant changes seen Referred By: Ellyn Agudelo Electronically Signed By:BAILEY TINAJERO
[2024-05-02] MEDS: ondansetron HCL 4 MG/2 ML VIAL IVPUSH (09:57)
[2024-05-02] MEDS: LORazepam 2 MG/ML VIAL 0.5 MG IVPUSH (09:57)
[2024-05-02] MEDS: Lactated Ringers 1,000 ML 999 ML IV ×2 (09:57→10:40)
[2024-05-02 09:58] VITALS: RESP 20
[2024-05-02] MEDS: Morphine Sulfate 4 MG/ML CARTRIDGE IVPUSH (09:58)
--- NOTE | 2024-05-02 10:25 | PC.NURSE ---
Pt was hard stick, took multiple attempts by 2 RNs, IV established and pt medicated. Pt is alert and oriented, restless and uncomfortable reporting pain in chest and ABD. Pt reports nausea, diarrhea, ABD pain, did the prep last night for colonoscopy this morning at 840A (rescheduled). Breathing slightly elevated, skin warm and dry. NSR on bedside nurse monitoring.
--- NOTE | 2024-05-02 11:22 | PC.NURSE ---
PO challenge at this time
[2024-05-02 11:33] VITALS: BP 189/95; PULSE 66; RESP 20; O2SAT 100
[2024-05-02 11:34] VITALS: BP 189/95; PULSE 66; RESP 20; TEMP -17.7; TEMP 0; O2SAT 100
--- OUTSIDE RECORDS SUMMARY | 2024-05-09 05:47 | XMS_ITS | Patient Health Record ---
Author Organization [facility] Address [address] [place] [address] Care Team Providers Care Research Environmental Engineer Name Role Phone Sarah Canseco Primary Care Provider Daron Gonzalez [phone] ALLERGIES No Known Allergies REASON FOR REFERRAL [...] adenomatous polyp of colon (Z86.010) Active confirmed [id number] Problem Encounter for screening for malignant neoplasm of colon (Z12.11) Active confirmed [id number] Problem Encounter for screening for malignant neoplasm of rectum (Z12.12) Active confirmed Screening for malignant neoplasm of rectum (537762796) Problem Preprocedural examination (Z01.818) Active confirmed [id number] VITAL SIGNS Temperature 98.6 degrees Fahrenheit 09/13/2023 Blood pressure diastolic 00 mm Hg 09/13/2023 Height 64 in 09/13/2023 Blood pressure systolic 00 mm Hg 09/13/2023 Weight 142 lbs 09/13/2023 BMI 24.37 kg/m2 09/13/2023 Encounters Encounter Location Date Provider Diagnosis [facility] [place] [address] [place], [place] [phone] 11/28/2023 Daron Veliz [facility] [place] [address] [place], [place] [phone] 05/02/[address] [facility] [address] [place] [phone] 09/13/2023 Daron Veliz History of adenomato us polyp of colon Z86.010 ; Preprocedural examination Z01.818 and Encounter for screening for malignant neoplasm of colon Z12.11 [facility] [address] [place] [phone] 09/13/[address] [facility] [address] [place] [phone] 12/11/[address] [facility] [address] [place] [phone] 03/02/[address] [facility] [address] [place] [phone] 05/08/2024 Daron Veliz ASSESSMENTS Encounter Date Diagnosis Assessment Notes Treatment Notes Treatment Clinical Notes 09/13/2023 History of adenomatous polyp of colon (ICD-10 - Z86.010) 09/13/2023 Preprocedural examination (ICD-10 - Z01.818) 09/13/2023 Encounter for screening for malignant neoplasm of colon (ICD-10 - Z12.11) PLAN OF TREATMENT Future Test Test Name Order Date COLONOSCOPY 10/14/2016 COLONOSCOPY 09/13/2023 Insurance Providers Payer Name Payer Address Payer Phone Subscriber Number Group Number Insured Name Patient Relationship to Insured Coverage Start Date Coverage End Date [facility] [address] Attn Claims ARSH Ansari [facility] [id number] ELLE ELIAS Self - patient is the insured MEDICAL (GENERAL) HISTORY Medical History History ICD Code Screening Colonoscopy 009--1 small tubular adenoma, diverticulosis, internal hemorrhoids Kidney stones Denies [place],DM,CVA,Lung disease,renal dise ase Mild chronic anemia Negative screening colonoscopy in 05/2017 HTN Surgical History Surgery Date(Month/Year)
--- OUTSIDE RECORDS SUMMARY | 2024-05-09 05:47 | XMS_ITS ---
Author Organization [facility] Address [address] [place] [address] Care Team Providers Care Project Engineer Chemicals Name Role Phone Sarah Canseco Primary Care Provider Daron Gonzalez [phone] REASON FOR VISIT colon screening Encounters Encounter Location Date Provider Diagnosis [facility] Out[facility] [address] [place], [place] [phone] 05/02/2024 Daron Veliz PLAN OF TREATMENT No Information
--- OUTSIDE RECORDS SUMMARY | 2024-05-09 05:47 | XMS_ITS ---
Author Organization [facility] Address [address] [place] [address] Care Team Providers Care Wiring Inspector Name Role Phone Sarah Canseco Primary Care Provider Daron Gonzalez [phone] REASON FOR VISIT R/S Colonoscopy Encounters Encounter Location Date Provider Diagnosis [facility] [address] [place] [address] 12/11/2023 Daron Veliz PLAN OF TREATMENT No Information
--- OUTSIDE RECORDS SUMMARY | 2024-05-09 05:47 | XMS_ITS ---
Author Organization [facility] Address [address] [place] [address] Care Team Providers Care Architecture Manager Name Role Phone Sarah Canseco Primary Care Provider Daron Gonzalez [phone] REASON FOR VISIT script request for colon prep MEDICATIONS Medication SIG (Take, Route, Frequency, Duration) [...] one day for 1 day 09/13/2023 Active Encounters Encounter Location Date Provider Diagnosis [facility] [address] [place] [phone] 03/02/2024 Daron Veliz PLAN OF TREATMENT Medication Medication Name Sig Start Date Stop Date Notes MiraLax (colon prep) 17 GM/SCOOP 1 238Gm bottle mixed with Gatorade or Crystal Light Orally begin at 5:00 p.m. the day before the procedure for 1 day 09/13/2023 Dulcolax (colon prep) 5 MG take at 3:00 p.m and 7:00p.m. Orally two tablets twice a day for one day for 1 day 09/13/2023
== END 2024-05-02 11:46 | disposition home or self-care (01) ==
PROVIDERS: Emergency Provider Emergency Medicine; PCP Student in an Organized Health Care Education/Training Program
DX: R11.2 Nausea with vomiting, unspecified (principal); R94.31 Abnormal electrocardiogram [ECG] [EKG]; F11.10 Opioid abuse, uncomplicated; R53.81 Other malaise; F17.210 Nicotine dependence, cigarettes, uncomplicated; Z79.899 Other long term (current) drug therapy
CPT/HCPCS: 36415; 80048; 83735; 85025; 93005; 96374; 96375; 99284; 99285; J2060; J2270; J2405; J7120

== ENCOUNTER → 2024-05-02 09:22 | Outpatient (BNV) | payer OTHER, SELFPAY | PROVIDERS: Emergency Provider Emergency Medicine; PCP Student in an Organized Health Care Education/Training Program; Visit Provider Internal Medicine | DX: R10.9 Unspecified abdominal pain (principal) | CPT/HCPCS: 93010 ==

== ENCOUNTER 2024-05-22 10:31 | Outpatient (AMB) | payer OTHER, SELFPAY ==
--- NOTE | 2024-05-22 10:32 | MHC.OFFVIS ---
Intake Visit Reasons: 6m follow up Intake Note: Patient presents today for follow up on Microscopic Hematuria Urology Medication: none Antibiotic Allergies:None Blood Thinners: None Hse Manager Required: No Accompanied by: Self / Same As Patient Allergies No Known Allergies Allergy (Mild, Verified 05/22/24 10:53) N/A Medication List - Last Reconciled 05/22/24 by Yohana Aponte, [facility]- lisinopril-hydrochlorothiazide 20-25 mg 1 tab PO DAILY tamsulosin 0.4 mg PO BEDTIME 90 days HPI Comments Details: Gonzales is a pleasant 74-year-old male patient of . He has a past medical history of hypertension, nephrolithiasis, anemia, eczema, microscopic hematuria, and hypogonadism. He presents to the office today for follow-up of his hypogonadism, microscopic hematuria and nephrolithiasis. In discussion with the patient today he reports since his last office visit here approximately 6 months ago he has had no bothersome urinary issues or concerns. He says discusses ongoing issues with nausea and vomiting and abdominal pain. He discusses having seeked emergency room care and is following up with PCP regarding this issue. During last office visit in office cystoscopy was performed with Dr. Hughes. At which time minor mucosal changes with bladder wall more consistent with IC type picture was noted. In office urinalysis results reviewed with the patient today. Patient continues with 3+ microscopic hematuria. 11/12 Urine Cytology Urine: Negative for high-grade urothelial carcinoma. 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 Previous workup has included a renal ultrasound 11/12 noting bilateral kidneys with multiple peripelvic cysts that require no follow-up imaging per radiology report. No nephrolithiasis or hydronephrosis noted. Urinalysis with pH of 5.5. We discussed and stressed the importance of of adequate hydration in relation to history of nephrolithiasis as well as interstitial cystitis. He currently denies any bothersome urinary issues or concerns. He reports be happy with current voiding parameters. Discussed history of hypogonadism and further workup however patient does not feel this is an issue at this time. He otherwise offers no other issues or concerns at this time. Hypogonadism Low testosterone detected during evaluation with PCP Does not experience any fatigue, loss of muscle or general decline in energy Does not appear to have normal production of LH Laboratories - 10/09 T 125 - 10/10 T 43, LH 0.4, FSH 3.3, SHBG 31 Imaging - 12/08 Normal pituitary MRI PFSH Medical History HTN (hypertension) Renal calculi Tubular adenoma Anemia Eczema Hematuria Hypogonadism in male Surgical History Hx of lithotripsy H/O colonoscopy Social History Household Members: None Alcohol intake: never Patient Tobacco Use Status: Current everyday Tobacco user Tobacco use type: Cigarette service: No Current occupational status: unemployed Gender identity: Male Review of Systems Const All systems reviewed & are unremarkable except as noted in HPI and below Physical Exam Const General: cooperative, healthy appearing, comfortable, no acute distress, well developed, alert and awake Orientation/consciousness: patient oriented x3 Limitations: no limitations HEENT Head: Yes normal to inspection, Yes normocephalic and Yes atraumatic Ears: hearing grossly normal bilaterally Eyes General: appearance normal, both eyes and all related structures Neck Neck: Yes normal visual inspection and Yes trachea midline Chest Chest palpation & inspection: normal inspection of the chest Resp Effort & Inspection: normal respiratory effort and able to speak in complete sentences Cardio Rate: regular rate GI Inspection: Yes normal to inspection General: Yes no CVA tenderness Back/Spine/Pelvis Back: no CVA tenderness Skin General skin exam: no rashes or lesions noted Neuro General: patient oriented x3 Extrem General: Yes normal to inspection Psych Appearance: grossly normal and well kempt Mental Status: mental status grossly normal Speech and movement: Normal speech and movement present and Clear speech present Affect: normal affect Attitude: cooperative Thought process: Normal thought process present Thought content: Normal thought content present Insight: Fair insight present (Psych) Judgement: Fair judgement present (Psych) Results AMB Urinalysis, Automated UA Leukoctes 0 Brad/uL Last Edit by Eladio Low on 05/22/24 10:41 UA Nitrite Last Edit by Eladio Low on 05/22/24 10:41 UA Urobilinogen 0.2 mg/dL Last Edit by Eladio Low on 05/22/24 10:41 UA Protein 15 mg/dL Last Edit by Eladio Low on 05/22/24 10:41 UA pH 5.5 Last Edit by Eladio Low on 05/22/24 10:41 UA Blood 200 Jack/uL Last Edit by Eladio Low on 05/22/24 10:41 UA Specific [place] 1.025 Last Edit by Eladio Low on 05/22/24 10:41 UA Ketone Negative Last Edit by Eladio Low on 05/22/24 10:41 UA Bilirubin 0 mg/dL Last Edit by Eladio Low on 05/22/24 10:41 UA Glucose 0 mg/dL Last Edit by Eladio Low on 05/22/24 10:41 Results Reviewed Results Reviewed: Laboratory Last Values Urine pH (Auto) 5.5 05/22/24 10:39 Specific [place] (Auto) 1.025 05/22/24 10:39 Urine Protein (Auto) 15 mg/dL 05/22/24 10:39 Glucose (UA)(Auto) 0 mg/dL 05/22/24 10:39 Urine Ketones (Auto) Negative 05/22/24 10:39 Urine Blood (Auto) 200 Jack/uL 05/22/24 10:39 Urine Bilirubin (Auto) 0 mg/dL 05/22/24 10:39 Urine Urobilinogen (Auto) 0.2 mg/dL 05/22/24 10:39 Leukocyte Esterase (Auto) 0 Brad/uL 05/22/24 10:39 Assessment & Plan Assessment & Plan (1) Hypogonadism in male: Code(s): E29.1 - Testicular hypofunction Category: Medical (2) Microscopic hematuria: Code(s): R31.29 - Other microscopic hematuria Category: Medical (3) Renal cyst: Code(s): N28.1 - Cyst of kidney, acquired Category: Medical Plan In office urinalysis results reviewed with the patient today; as noted above; will send for urine cytology. We discussed at length importance of hydration in relation to nephrolithiasis, interstitial cystitis, as well as overall health and well-being. Discussed obtaining PSA. Will obtain renal ultrasound for further assessment evaluation; surveillance monitoring Patient currently denies any bothersome urinary issues or concerns. He reports be happy with current voiding parameters. Previous urine cytology results reviewed with the patient today; as noted above. Follow-up in 6 months with imaging and labs to be completed prior; or sooner with any issues, concerns, and or questions. Orders: Orders US retroperitoneal comp Today N20.0 - Calculus of kidney, R31.29 - Other microscopic hematuria Urine Cytology Today R31.29 - Other microscopic hematuria AMB Urinalysis Automated Today Z13.9 - Encounter for screening, unspecified Prostate Specific Antigen Today N40.0 - Benign prostatic hyperplasia without lower urinary tract symptoms Medications: New tamsulosin 0.4 mg PO BEDTIME 90 days 90 caps 2RF N40.1 - Benign prostatic hyperplasia with lower urinary tract symptoms, R35.1 - Nocturia Patient Instructions: The patient had an opportunity to ask questions regarding the treatment plan. All questions were answered. Physical exam, labs, and imaging were discussed and reviewed in detail. As well as risks, benefits, and discussion of treatment choices. No major barriers to understanding were identified. The patient expressed understanding and agreement with the above treatment plan. The patient was made aware they should contact our office by phone for worsening of their current condition, the appearance of new symptoms, or with any questions or concerns. Compliance is encouraged with any medications and follow up testing that is ordered. It is a privilege to be allowed the opportunity to participate in? your urological care.? Again, if you have any questions or concerns If you have any questions or concerns please do not hesitate to contact me. The office is [phone]. This note is constructed using voice recognition software. While every effort has been made to ensure accuracy sawmill relief worker errors may have been included. Yours sincerely, TOÑO Vines Coding Level of Care Code Est Pt Level 3 (86483) Complex EM visit Add On G2211 Diagnoses Hypogonadism in male E29.1 Microscopic hematuria R31.29 Renal cyst N28.1
--- OUTSIDE RECORDS SUMMARY | 2024-05-22 10:32 | XMS_ITS ---
Author Organization [facility] Address [address] [place] [address] Care Team Providers Care Sba Business Development Officer Name Role Phone Sarah Canseco Primary Care Provider Daron Gonzalez [phone] REASON FOR VISIT 05/22 Encounters Encounter Location Date Provider Diagnosis [facility] [address] [place] [address] 05/21/2024 Daron Veliz PLAN OF TREATMENT No Information
--- OUTSIDE RECORDS SUMMARY | 2024-05-22 10:33 | XMS_ITS | Patient Health Record ---
Author Organization [facility] Address [address] [place] [address] Care Team Providers Care Metal Fabricating Supervisor Name Role Phone Sarah Canseco Primary Care Provider Daron Gonzalez [phone] ALLERGIES No Known Allergies REASON FOR REFERRAL [...] adenomatous polyp of colon (Z86.010) Active confirmed [id number] Problem Encounter for screening for malignant neoplasm of colon (Z12.11) Active confirmed [id number] Problem Encounter for screening for malignant neoplasm of rectum (Z12.12) Active confirmed Screening for malignant neoplasm of rectum (380102860) Problem Preprocedural examination (Z01.818) Active confirmed [id number] VITAL SIGNS Temperature 98.6 degrees Fahrenheit 09/13/2023 Blood pressure diastolic 00 mm Hg 09/13/2023 Height 64 in 09/13/2023 Blood pressure systolic 00 mm Hg 09/13/2023 Weight 142 lbs 09/13/2023 BMI 24.37 kg/m2 09/13/2023 Encounters Encounter Location Date Provider Diagnosis [facility] Outpatient [address] [place], [place] [phone] 11/28/2023 Daron Veliz [facility] Outpatient [address] [place], [place] [phone] 05/02/2024 Daron Veliz [facility] [address] [place] [phone] 09/13/2023 Daron Veliz History of adenomato us polyp of colon Z86.010 ; Preprocedural examination Z01.818 and Encounter for screening for malignant neoplasm of colon Z12.11 [facility] [address] [place] [phone] 09/13/2023 Daron Veliz [facility] [address] [place] [phone] 12/11/2023 Daron Veliz [facility] [address] [place] [phone] 03/02/2024 Daron Veliz [facility] [address] [place] [phone] 05/08/2024 Daron Veliz [facility] [address] [place] [phone] 05/21/2024 Daorn Veliz ASSESSMENTS Encounter Date Diagnosis Assessment Notes [...] Start Date Coverage End Date [facility] [address] Attn Claims ARSH Ansari [id number] ELLE ELIAS Self - patient is the insured MEDICAL (GENERAL) HISTORY Medical History History ICD Code Screening Colonoscopy 009--1 small tubular adenoma, diverticulosis, internal hemorrhoids Kidney stones Denies [place],DM,CVA,Lung disease,renal dise ase Mild chronic anemia Negative screening colonoscopy in 05/2017 HTN Surgical History Surgery Date(Month/Year)
--- OUTSIDE RECORDS SUMMARY | 2024-05-22 10:33 | XMS_ITS ---
Author Organization [facility] Address [address] [place] [address] Care Team Providers Care Nut Orchardist Name Role Phone Sarah Canseco Primary Care Provider Daron Gonzalez [phone] REASON FOR VISIT BILLING SLIP? Encounters Encounter Location Date Provider Diagnosis [facility] [address] [place] [address] 05/08/2024 Daron Veliz PLAN OF TREATMENT No Information
--- OUTSIDE RECORDS SUMMARY | 2024-05-22 10:33 | XMS_ITS ---
Author Organization [facility] Address [address] [place] [address] Care Team Providers Care Pet Feeder Name Role Phone Sarah Canseco Primary Care Provider Daron Gonzalez [phone] REASON FOR VISIT colon screening Encounters Encounter Location Date Provider Diagnosis [facility] Outpatient [address] [place], [place] [phone] 05/02/2024 Daron Veliz PLAN OF TREATMENT No Information
== END 2024-05-22 10:47 | disposition home or self-care (01) ==
LOC: HO.HUSH 10:31
PROVIDERS: PCP Student in an Organized Health Care Education/Training Program; Visit Provider Nurse Practitioner Family
DX: E29.1 Testicular hypofunction (principal); R31.29 Other microscopic hematuria; N28.1 Cyst of kidney, acquired; Z13.9 Encounter for screening, unspecified
CPT/HCPCS: 99213; G2211

== ENCOUNTER 2024-05-22 10:31 | Outpatient (REF) | payer OTHER, SELFPAY ==
[2024-05-22 17:08] LABS: Urine Cytology See Pathology rpt
== END 2024-05-22 10:32 | disposition home or self-care (01) ==
LOC: HO.LNP 10:31
PROVIDERS: PCP Student in an Organized Health Care Education/Training Program; Visit Provider Nurse Practitioner Family
DX: R31.29 Other microscopic hematuria (principal); E29.1 Testicular hypofunction; N28.1 Cyst of kidney, acquired; N40.1 Benign prostatic hyperplasia with lower urinary tract symptoms; R35.1 Nocturia; N20.0 Calculus of kidney
CPT/HCPCS: 81003; 88112; 99212

== ENCOUNTER 2024-07-05 11:09 | Outpatient (REF) | payer OTHER, SELFPAY ==
[2024-07-05 13:27] LABS: MANUAL DIFF FLAG NO
[2024-07-05 13:36] LABS: Basophils Percent Auto 0.3 % (0-2); Eosinophils Absolute Auto 0.1 X10*3/uL (0.0-0.4); Eosinophils Percent Auto 1.1 % (0-4); Hemoglobin 11.8 g/dl (14.0-18.0); Imm Gran Abs Auto 0.04 X10*3/uL (0.00-0.03); Imm Gran Pct Auto 0.4 % (0.0-0.4); Lymphocytes Percent Auto 19.4 % (20-40); Mean Corpuscular HGB Conc 32.8 g/dl (31.0-36.0); Mean Corpuscular Hemoglobin 27.8 pg (27.0-33.0); Mean Corpuscular Volume 84.9 fL (80.0-98.0); Mean Platelet Volume 10.3 fL (9.4-12.4); Monocytes Absolute Auto 1.1 X10*3/uL (0.1-1.2); Monocytes Percent Auto 11.3 % (2-11); Neutrophils Absolute Auto 6.8 x10*3/uL (2.0-8.3); Neutrophils Percent Auto 67.5 % (45-73); Platelet Count 261 X10*3/uL (160-400); Red Blood Count 4.24 X10*6/uL (4.60-5.80); Red Cell Distribution Width 14.2 % (11.0-16.0); White Blood Count 10.1 X10*3/uL (4.8-10.8)
[2024-07-05 14:01] LABS: Alanine Aminotransferase 14 U/L (0-40); Albumin Level 4.2 g/dL (3.5-5.0); Alkaline Phosphatase 60 U/L (39-117); Anion Gap 11 (12-20); Aspartate Amino Transferase 18 U/L (5-37); Bilirubin Direct 0.2 mg/dL (0.0-0.5); Bilirubin Total 0.4 mg/dL (0.0-1.0); Blood Urea Nitrogen 20 mg/dL (9-16); Calcium 9.8 mg/dL (8.4-10.2); Carbon Dioxide 30 mmol/L (22-29); Chloride 101 mmol/L (96-108); Estimated Glomerular Filt Rate > 60; Glucose Random 122 mg/dL (60-115); Potassium 4.4 mmol/L (3.3-5.1); Sodium 138 mmol/L (135-145); Total Protein 7.4 g/dL (6.5-8.0)
[2024-07-05 14:18] LABS: Amphetamine Screen Urine Not Detected (Not Detect); Barbiturates, Urine Not Detected (Not Detect); Benzodiazepines Screen Urine Not Detected (Not Detect); Buprenorphine Scr Not Detected (Not Detect); Cannabinoid Screen Urine POSITIVE (Not Detect); Cocaine Screen Urine Not Detected (Not Detect); Fentanyl, urine POSITIVE (Not Detect); Methadone Screen, Urine Positive (Not Detect); Opiate Screen Urine POSITIVE (Not Detect); Oxycodone Screen Urine Not Detected (Not Detect); Phencyclidine Screen Urine Not Detected (Not Detect)
[2024-07-06 08:00] LABS: HBsAGNum1 0.39 S/CO (0.00-0.99); Hepatitis B Surface Antigen Negative (Negative)
[2024-07-09 13:39] LABS: RPR Rapid Plasma Reagin NON-REACTIVE (NON-REACTIVE)
== END 2024-07-05 11:10 | disposition home or self-care (01) ==
LOC: HO.HHCL 11:09
PROVIDERS: Visit Provider Family Medicine Addiction Medicine
DX: Z13.89 Encounter for screening for other disorder (principal)
CPT/HCPCS: 80053; 80307; 82248; 85025; 86592; 87340

== ENCOUNTER 2024-11-16 12:39 | Outpatient (REF) | payer OTHER, SELFPAY ==
[2024-11-16 14:02] LABS: Prostate Specific Antigen 0.59 ng/mL (<0.05-4.0)
--- OUTSIDE RECORDS SUMMARY | 2024-11-16 14:44 | XMS_ITS ---
Author Organization [facility] Address [address] [place] [address] Care Team Providers Care Strategic Procurement Manager Name Role Phone Sarah Canseco Primary Care Provider Daron Gonzalez Unavailable [phone] REASON FOR VISIT BILLING SLIP? Encounters Encounter Location Date Provider Diagnosis [facility] [address] [place] [address] 05/08/2024 Daron Veliz PLAN OF TREATMENT Next Appt Details Provider Name:Daron Veliz , 12/28/2024 10:30:00 AM, [address] [place] [address] , [place], [place], [phone],
--- OUTSIDE RECORDS SUMMARY | 2024-11-16 14:44 | XMS_ITS ---
Author Organization [facility] Address [address] [place] [address] Care Team Providers Care Seam Presser Name Role Phone Sarah Canseco Primary Care Provider Daron Gonzalez Unavailable [phone] REASON FOR VISIT colon screening Encounters Encounter Location Date Provider Diagnosis [facility] Outpatient [address] [place] [phone] 05/02/2024 Daron Veliz PLAN OF TREATMENT Next Appt Details Provider Name:Daron Veliz , 12/28/2024 10:30:00 AM, [address] [facility] , [place], [place], [phone],
--- OUTSIDE RECORDS SUMMARY | 2024-11-16 14:44 | XMS_ITS | Encounter Summary ---
Author Organization [employer] Address [address] [place] [address] [address] [place] [address] Care Team Providers Care Pattern Hanger Name Role Phone Sarah Canseco MD Primary Care Pro vider Reason for Visit * Reason Comments Med Refill Encounter Details Date Type Department Care Team ([facility] st Contact Info) Description 03/20/2024 Refill [facility] [address] [place], [place] [phone] Sarah Canseco MD [address] [place], [place] [phone] Social History Tobacco Use Types Packs/Day Years Used Date Smoking Tobacco: Some Days Cigarettes Passive Smoke Exposure: Current Smokeless Tobacco: Never Comments:Started smoking tob acco 19 years of age until now 4-5 from 10 -12 a day ---PQT mike 21.6 a year if mike in average 8 cig a day ,smoking for 54 years Alcohol Use Standard Drinks/Week Comments Not Currently 0 (1 standard drink = 0.6 oz pur e alcohol) Depression Answer Date Recorded Patient Health Questionnaire-9 Score 0 07/11/2023 Patient Health Questionnaire-9 Score 0 07/11/2023 Last PHQ-9: Questionnaire Data Not on file 1 Housing Stability Answer Date Recorded What is your housing situation today? I have noel torres 07/11/[address] you li ve. Do you have problems with any of the following? None of the above 07/11/2023 Food Insecurity Answer Date Recorded Within the past 12 months, y ou worried that your food would run out before you got money to buy more: Never True 07/11/2023 Within the past 12 months,th e food you bought just didn't last and you didn't have enough money to get more: Never True Transportation Answer Date Recorded In the past 12 months, has l ack of transportation kept you from medical appts, meetings, work or from getting things needed for daily living? No 07/11/2023 Utilities Answer Date Recorded In the past 12 months, has t he electric, gas, oil or water company threatened to shut off services in your home? No 07/11/2023 Depression Answer Date Recorded Patient Health Questionnaire-2 Score 0 07/11/2023 Sex and Gender Information Value Date Recorded Sex Assigned at Male 07/19/2022 10:16 AM EDT Legal Sex Male 10:16 AM EDT Gender Identity Male 07/19/2022 10:16 AM EDT Sexual Orientation Straight 07/19/2022 10 :16 AM EDT documented as of this encounter Plan of Treatment Not on file documented as of this encounter Visit Diagnoses Not on filedocumented in this encounter Additional Health Concerns Assessment Noted Time PHQ-9 Depression Total Score: 0 07/11/20 9:13 AM EDT documented as of this encounter Care Teams Pattern Hanger Relationship Specialty Start Date End Date Sarah Canseco MD [address] [place] [phone] PCP - General Internal Medicine 02/18/23 documented as of this encounter
--- OUTSIDE RECORDS SUMMARY | 2024-11-16 14:44 | XMS_ITS | Clinical Summary ---
Author Organization [employer] Address [address] [facility] 7[address] [place] [address] Care Team Providers Care Heating Engineer Name Role Phone Sarah Canseco MD Primary Care Pro vider Allergies No known active allergies Medications methadone (Dolophine) 5 MG/5ML solution Take 20 mL by mouth every 8 (eight) hours. Active tamsulosin (Flomax) 0.4 MG 24 hr capsule TAKE 1 CAPSULE BY MOUTH 30 MINUTES AFTER THE SAME MEAL EVERY DAY 90 capsule 05/01/2024 Active lisinopril-hydr oCHLOROthiazide 20-25 MG tablet Take 1 tablet by mouth in the morning. 90 tablet 08/14/2024 Active Active Problems Problem Noted Date Diagnosed Date Poor memory 01/18/2024 Grieving 01/17/2024 Prediabetes 09/09/2023 Tobacco use 07/11/2023 Health care maintenance 07/11/2023 Abnormal tympanic membrane 07/11/2023 Essential hypertension 02/09/2019 Male hypogonadism 10/17/2018 Microscopic hematuria 10/17/2018 Opioid dependence 06/06/2012 Anemia 03/02/2012 Resolved Problems Problem Noted Date Diagnosed Date Resolved Date Blood in urine 03/02/2012 07/11/2023 Contact dermatitis 03/02/2012 Vitamin D deficiency 03/02/2012 023 Encounters Date Type Department Care Team Description 10/15/2024 Patient Outreach [facility] [address] [place] [address] Ty Foutnain Recovery Supports from Last 3 Months Immunizations Name Administration Dates Next Due Hep A, Adult 10/20/2007 Hep B, adult 10/20/2007 Influenza High-dose Quadrivalent Preservative Fr ee 07/11/2023,07/01/2022 Influenza injectable quadriv alent IIV4 with preservative 10/25/2017 Influenza injectable quadrivalent preservative f ree 08/18/2021 Influenza, IIV3, injectable 07/02/2011 Influenza, Split (incl. purified surface antigen ) 06/06/2012 Harpreet SARS-CoV-2 Vaccination 12/16/2020 MMR 09/23/2011 Pfizer Covid-19 Vaccine 12+ 08/18/2021 Pneumococcal Conjugate PCV 13 08/18/2021 Pneumococcal Conjugate PCV 20 07/11/2023 Pneumococcal Polysaccharide PPSV23 10/20/2009 RSV Bivalent 01/19/2024 TD (adult), 2 Lf tetanus tox oid, preservative free, adsorbed 07/01/2022,08/04/2007 Tdap 05/27/2021,01/25/2012 Zoster, Recombinant 03/20/2024,01/19/2024 Family History Medical History Relation Name Comments unspecified maliagnacy Brother Liver cancer Father liver/gastric ca Father's Brother Relation Name Status Comments Brother Father Father's Brother Social History Tobacco Use Types Packs/Day Years Used Date Smoking Tobacco: Some Days Cigarettes Passive Smoke Exposure: Current Smokeless Tobacco: Never Tobacco Cessation:Ready to Q uit: Not Asked; Counseling Given: Not Answered Comments:Started smoking tobacco 19 years of age until now 4-5 [...] Orientation Straight 07/19/2022 10 :16 AM EDT Last Filed Vital Signs Vital Sign Reading Time Taken Comments Blood Pressure 137/82 05/01/2024 1:08 PM EDT Pulse 73 05/01/2024 1:08 PM EDT Temperature 36.9 ??C (98.4 ??F) 05/01/2024 1:08 PM ED T Respiratory Rate 14 05/01/2024 1:08 PM EDT Oxygen Saturation 99% 05/01/2024 1:08 PM EDT Inhaled Oxygen Concentration - - Weight 63.3 kg (139 lb 9.6 oz) 05/01/2024 1:08 P M EDT Height 162.6 cm (5' 4 ) 02/28/2024 9:56 AM EDT Body Mass Index 23.96 02/28/2024 9:56 AM EDT Plan of Treatment Health Maintenance Due Date Last Done Comments CT Colonography 1949 FIT DNA/Cologuard 1949 FIT 1949 FOBT 1950 Sigmoidoscopy 1949 Alcohol/Substance Use Screening 1961 Hepatitis B Vaccines (2 of 3 - 19+ 3-dose series) 11/17/2007 10/20/2007 Colonoscopy 05/31/2022 05/31/2017 Colorectal Cancer Screening 05/31/2022 COVID-19 Vaccine ( season) 2024 08/18/2021, 12/16/2020 Influenza Vaccine (#1) 2024 , 07/01/2022, 08/18/2021, Additional history exists Depression Screening 07/11/2024 07/11/2023, 07/11/20 SDOH Screening 07/11/2024 07/11/2023 Diabetes: Hemoglobin A1C 02/09/2025 024, 07/11/2023, 04/12/2022, Additional history exists Tobacco Screening 05/01/2025 05/01/2024 Lipid Panel 07/11/2028 07/11/2023, 03/20, 03/24/2021 DTaP/Tdap/Td Vaccines (4 - Td or Tdap) 07/01/2032 07/01/2022, 05/27/2021, 01/25/2012, Additional history exists Hepatitis A Vaccines Aged Out 10/20/2007 No long er eligible based on patient's age to complete this topic Hepatitis C Screening Completed 07/11/2023 Pneumococcal Vaccine: 50+ Years Completed 07/11/2023, 08/18/2021, 10/20/2009 RSV Patients and Patients Aged 60 years or older Completed 01/19/2024 Zoster Vaccines Completed 03/20/2024, 01/19/2024 HIB Vaccines Aged Out No longer eligi ble based on patient's age to complete this topic HPV Vaccines Aged Out No longer eligi ble based on patient's age to complete this topic IPV Vaccines Aged Out No longer eligi ble based on patient's age to complete this topic Meningococcal Vaccine Aged Out No liudmila gabriela eligible based on patient's age to complete this topic RSV under 20 months Aged Out No longe r eligible based on patient's age to complete this topic Rotavirus Vaccines Aged Out No longer eligible based on patient's age to complete this topic Procedures Procedure Name Priority Date/Time Associated Diagnosis Comments PSA, TOTAL Routine 11/16/2024 12:45 PM EST HEMOGLOBIN A1C Routine 02/10/2024 2:16 PM EDT Prediabetes HEPATITIS C AB W/REFL TO HCV RNA, QN, PCR Routine 07/11/2023 10:35 AM EDT Annual physical exam LIPID PANEL, STANDARD Routine 07/11/2023 10:35 AM EDT Annual physical exam HM COLONOSCOPY Routine 05/31/2017 from Last 3 Months or Most Recently Relevant to Health Maintenance Results * PSA,Total (11/16/2024 12:45 PM EST) Prostate Specific Antigen 0.59 <0.05 - 4.0 ng/mL [facility] Comment:PSA methodology: Abb jaxson Alijeanettety i ChemiluminescentMicroparticle Immunoassay (CMIA) 11/16/2024 12:4 5 PM EST 11/16/2024 12:45 PM EST us Generic External Data Provider LAB BLOOD ORDERAB LES Final Result Performing Organization Address City/State/[facility] Co de Phone Number [facility] [address] [place] [phone] * Hemoglobin A1c (02/10/2024 2:16 PM EDT) Hemoglobin A1c 5.8 <6.0 % [facility] Comment:Hemoglobin A1C Refer ence Range Adults: 4.8 - 6.0 % Non diabetic: < 6.0 % Goal: < 7.0 %Additional Action Suggested: > 8.0 %Note: Hemoglobin A1c results are invalid for patients with abnormal amounts of HbF. Blood transfusions may impact the HbA1c concentration in the patient sample. Estimated Average Glucose 120 mg/dL [facility] Comment:eAG = Estimated ave rage glucose which is %A1C expressed asaverage glucose, using the formula of the P7V-WowftrnBthelzl Glucose study (ADAG), Diabetes Care, Vol.31,#8,Apr. 2007 Blood Venous blood specimen / Unknown 02/10/2024 2:16 PM EDT 02/10/2024 4:12 PM EDT us Sarah Ziegler MD LAB BLOOD ORDERAB LES Final Result Performing Organization Address City/[facility]/ZIP Co de Phone Number [facility] [address] [place] [phone] * Hepatitis C Antibody with Reflex to HCV, RNA, Quantitative, Real-Time PCR (07/11/2023 10:35 AM EDT) Hepatitis C Antibody Nonreactive Nonreactive [facility] Comment:Antibodies to HCV no t detected; does not exclude early acuteHCV infection. Blood Venous blood specimen / Unknown 07/11/2023 10:35 AM EDT 07/11/2023 11:27 AM EDT Sarah Ziegler MD LAB BLOOD ORDERAB LES Final Result Performing Organization Address [facility] Co de Phone Number [facility] [address] [place] [phone] * Lipid Panel, Standard (07/11/2023 10:35 AM EDT) Triglycerides 61 <150 mg/dL [facility] Comment:Desirable Triglyceri de: less than 150 mg/dLBorderline High Triglyceride 150-199 mg/dLHigh Triglyceride: 200-499 mg/dLVery High Triglyceride: greater than or equal to 5OO mg/dL Cholesterol 169 <200 mg/dL [facility] Comment:Desirable Cholestero l: less than 200 mg/dLBorderline High Cholesterol: 200-239 mg/dLHigh Cholesterol: greater than 239 mg/dL LDL Cholesterol Calculated 91 <100 mg/dL [facility] Comment:Desirable LDL: less than 100 mg/dLNear Optimal/Above Optimal LDL: 110- 129 mg/dLBorderline High LDL: 130-159 mg/dLHigh LDL: 160-189 mg/dLVery High LDL: greater than or equal to 190 mg/dL HDL Cholesterol 66 >40 mg/dL [facility] Comment:Desirable HDL: great er than 40 mg/dL Note: This HDL assay may give artificially low results in patients with liver disease. Blood Venous blood specimen / Unknown 07/11/2023 10:35 AM EDT 07/11/2023 11:27 AM EDT us Sarah Ziegler MD LAB BLOOD ORDERAB LES Final Result [facility] [address] [place] [phone] * Hm Colonoscopy (05/31/2017) Colonoscopy Normal Normal Narrative Kristen Bowman - 05/31/2017 Repeat in 5 years us Historical Provider HEALTH MAINTENANCE Final Result from Last 3 Months or Most Recently Relevant to Health Maintenance Insurance BHUPINDER Olson [facility] [place] [address] [place] [address] Care Teams Heating Engineer Relationship Specialty Start Date End Date Sarah Canseco MD [address] [place] [phone] PCP - General Internal Medicine 02/18/23
--- OUTSIDE RECORDS SUMMARY | 2024-11-16 14:44 | XMS_ITS | Patient Health Record ---
Author Organization [facility] Address [address] [place] [address] Care Team Providers Care Residential Property Manager Name Role Phone Sarah Canseco Primary Care Provider Daron Gonzalez [phone] ALLERGIES No Known Allergies REASON FOR REFERRAL [...] W/U Status Risk SNOMED Code Notes Problem Encounter for screening for malignant neoplasm of colon (Z12.11) Active confirmed 720782559 Problem History of adenomatous polyp of colon (Z86.010) Active confirmed 623944217 Problem Encounter for screening for malignant neoplasm of rectum (Z12.12) Active confirmed Screening for malignant neoplasm of rectum (606106824) Problem Preprocedural examination (Z01.818) Active confirmed 22012184 Encounters Encounter Location Date Provider Diagnosis [facility] [place] Outpatient [address] [facility] [place] [phone] 11/28/2023 Daron Veliz [facility] Outpatient [address] [place], [place] [phone] 05/02/2024 Daron Thrasher [facility] [address] [place] [phone] 12/11/2023 Daron Veliz [facility] [address] [place] [phone] 03/02/2024 Daron Veliz [facility] [address] [place] [address] 05/08/2024 Daron Veliz [facility] [address] [place] [phone] 05/21/2024 Daron Veliz PLAN OF TREATMENT Future Test Test Name Order Date COLONOSCOPY 10/14/2016 COLONOSCOPY 09/13/2023 Next Appt Details Provider Name:Daron Veliz , 12/28/2024 10:30:00 AM, [address] [place], [place], [phone], Insurance Providers Payer Name Payer Address Payer Phone Subscriber Number Group Number Insured Name Patient Relationship to Insured Coverage Start Date Coverage End Date [facility] [address] Attn Claims ARSH Ansari [id number] ELLE ELIAS Self - patient is the insured MEDICAL (GENERAL) HISTORY Medical History History ICD Code Screening Colonoscopy 1-27-2 009--1 small tubular adenoma, diverticulosis, internal hemorrhoids Kidney stones Denies [place],DM,CVA,Lung disease,renal dise ase Mild chronic anemia Negative screening colonoscopy in 05/2017 HTN Surgical History Surgery Date(Month/Year)
--- OUTSIDE RECORDS SUMMARY | 2024-11-16 14:44 | XMS_ITS | Encounter Summary ---
Author Organization [employer] Address [address] [facility] [address] [place] [address] Care Team Providers Care Interactive Designer Name Role Phone Sarah Canseco MD Primary Care Pro vider Encounter Details Date Type Department Care Team (Late st Contact Info) Description 08/05/2023 Abstract [facility] [address] [place], [place] [phone] Kristen Bowman Social History Tobacco Use Types Packs/Day Years [...] on file documented as of this encounter Procedures Procedure Name Priority Date/Time Associated Diagnosis Comments COLONOSCOPY Routine 05/31/2017 documented in this encounter Results * Colonoscopy (05/31/2017) Colonoscopy Normal Normal Narrative Kristen Bowman - 05/31/2017 Repeat in 5 years us Historical Provider HEALTH MAINTENANCE Final Result documented in this encounter Visit Diagnoses Not on filedocumented in this encounter Additional Health Concerns Assessment Noted Time PHQ-9 Depression Total Score: 0 07/11/20 23 9:13 AM EDT documented as of this encounter Care Teams Interactive Designer Relationship Specialty Start Date End Date Sarah Canseco MD [address] [place] [phone] PCP - General Internal Medicine 02/18/23 documented as of this encounter
--- OUTSIDE RECORDS SUMMARY | 2024-11-16 14:44 | XMS_ITS ---
Author Organization [facility] Address [address] [place] [address] Care Team Providers Care Assistant Teacher Name Role Phone Sarah Canseco Primary Care Provider Daron Gonzalez [phone] REASON FOR VISIT colonoscopy Encounters Encounter Location Date Provider Diagnosis [facility] [address] [place] [address] 05/21/2024 Daron Veliz PLAN OF TREATMENT Next Appt Details Provider Name:Daron Veliz , 12/28/2024 10:30:00 AM, [address] [facility] , [place], [place], [phone],
== END 2024-11-16 12:40 | disposition home or self-care (01) ==
LOC: HO.LAB 12:39
PROVIDERS: PCP Student in an Organized Health Care Education/Training Program; Visit Provider Nurse Practitioner Family
DX: N40.0 Benign prostatic hyperplasia without lower urinary tract symptoms (principal); Z12.5 Encounter for screening for malignant neoplasm of prostate
CPT/HCPCS: 36415; 84153

== ENCOUNTER 2024-11-20 09:38 | Outpatient (AMB) | payer OTHER, SELFPAY ==
--- NOTE | 2024-11-20 10:13 | A.OFFVIS_ITS ---
Intake Visit Reasons: 6m/PSA Intake Note: Patient presents today for follow up on Microscopic Hematuria , renal cyst, and psa lab results PSA: 0.59 Urology Medication: tamsulosin Antibiotic Allergies:None Blood Thinners: None Lead Simulation Modeling Engineer Required: No Accompanied by: Self / Same As Patient Allergies No Known Allergies Allergy (Mild, Verified 11/20/24 11:39) N/A Medication List - Last Reconciled 11/20/24 by LUZ Vines- lisinopril-hydrochlorothiazide 20-25 mg 1 tab PO DAILY tamsulosin 0.4 mg PO BEDTIME 90 days HPI Comments Details: Gonzales is a pleasant 74-year-old male patient of . He has a past medical history of hypertension, nephrolithiasis, anemia, eczema, microscopic hematuria, and hypogonadism. He presents to the office today for follow-up of his hypogonadism, microscopic hematuria and nephrolithiasis. In discussion with the patient today he continues to report episodes of nausea, vomiting, and diarrhea. He also reports noting weak urinary stream however has since stopped taking Flomax however is unsure as to why. Patient with a history of microscopic hematuria in the setting of nicotine dependence and has undergone in office cystoscopy with Dr. Hughes 12/10 noting minor mucosal changes with bladder wall mo re consistent with IC type picture was noted. In office urinalysis results reviewed with the patient today 3+ microscopic hematuria. Urine cytology 11/12 and 06/12 Negative for high-grade urothelial carcinoma. We discussed obtaining imaging as planned prior to last office visit and importance in doing so. We discussed following up with PCP regarding ongoing GI issues he continues to experience as patient had reported GI issues during last office visit over 6 months ago. Discussed history of hypogonadism and further workup however patient does not feel this is an issue at this time. He denies nocturia, visible/gross hematuria, dysuria, foul smelling urine, changes to urinary stream, flank pain, fever, and or chills. He otherwise offers no other issues or concerns at this time. PSA: 11/13 0.6 Hypogonadism Low testosterone detected during evaluation with PCP Does not experience any fatigue, loss of muscle or general decline in energy Does not appear to have normal production of LH Laboratories - 10/09 T 125 - 10/10 T 43, LH 0.4, FSH 3.3, SHBG 31 Imaging - 12/08 Normal pituitary MRI [facility] Medical History HTN (hypertension) Renal calculi Tubular adenoma Anemia Eczema Hematuria Hypogonadism in male Surgical History Hx of lithotripsy H/O colonoscopy Social History Household Members: None Alcohol intake: never Patient Tobacco Use Status: Current everyday Tobacco user Tobacco use type: Cigarette service: No Current occupational status: unemployed Gender identity: Male Review of Systems Const All systems reviewed & are unremarkable except as noted in HPI and below Physical Exam Const General: cooperative, healthy appearing, comfortable, no acute distress, well developed, alert and awake Orientation/consciousness: patient oriented x3 Limitations: no limitations HEENT Head: Yes normal to inspection, Yes normocephalic and Yes atraumatic Ears: hearing grossly normal bilaterally Eyes General: appearance normal, both eyes and all related structures Neck Neck: Yes normal visual inspection and Yes trachea midline Chest Chest palpation & inspection: normal inspection of the chest Resp Effort & Inspection: normal respiratory effort and able to speak in complete sentences Cardio Rate: regular rate GI Inspection: Yes normal to inspection General: Yes no CVA tenderness Back/Spine/Pelvis Back: no CVA tenderness Skin General skin exam: no rashes or lesions noted Neuro General: patient oriented x3 Extrem General: Yes normal to inspection Psych Appearance: grossly normal and well kempt Mental Status: mental status grossly normal Speech and movement: Normal speech and movement present and Clear speech present Affect: normal affect Attitude: cooperative Thought process: Normal thought process present Thought content: Normal thought content present Insight: Fair insight present (Psych) Judgement: Fair judgement present (Psych) Results AMB Urinalysis, Automated UA Leukoctes 0 Brad/uL Last Edit by Eladio Low on 11/20/24 10:27 UA Nitrite Last Edit by Eladio Low on 11/20/24 10:27 UA Urobilinogen 0.2 mg/dL Last Edit by Eladio Low on 11/20/24 10:27 UA Protein 30 mg/dL Last Edit by Eladio Low on 11/20/24 10:27 UA pH 6.0 Last Edit by Eladio Low on 11/20/24 10:27 UA Blood 200 Jack/uL Last Edit by Eladio Low on 11/20/24 10:27 UA Specific [place] 1.025 Last Edit by Eladio Low on 11/20/24 10:27 UA Ketone Negative Last Edit by Eladio Low on 11/20/24 10:27 UA Bilirubin 0 mg/dL Last Edit by Eladio Low on 11/20/24 10:27 UA Glucose 0 mg/dL Last Edit by Eladio Low on 11/20/24 10:27 Results Reviewed Results Reviewed: Laboratory Last Values Urine pH (Auto) 6.0 11/20/24 10:26 Specific [place] (Auto) 1.025 11/20/24 10:26 Urine Protein (Auto) 30 mg/dL 11/20/24 10:26 Glucose (UA)(Auto) 0 mg/dL 11/20/24 10:26 Urine Ketones (Auto) Negative 11/20/24 10:26 Urine Blood (Auto) 200 Jack/uL 11/20/24 10:26 Urine Bilirubin (Auto) 0 mg/dL 11/20/24 10:26 Urine Urobilinogen (Auto) 0.2 mg/dL 11/20/24 10:26 Leukocyte Esterase (Auto) 0 Brad/uL 11/20/24 10:26 Assessment & Plan Assessment & Plan (1) Renal cyst: Code(s): N28.1 - Cyst of kidney, acquired Category: Medical (2) Microscopic hematuria: Code(s): R31.29 - Other microscopic hematuria Category: Medical (3) Nicotine dependence: Code(s): F17.200 - Nicotine dependence, unspecified, uncomplicated Category: Medical (4) History of urinary hesitancy: Code(s): Z87.898 - Personal history of other specified conditions Category: Medical Plan In office urinalysis results reviewed with the patient today; will send for urine cytology. We discussed importance of following up with emergency room and or primary care doctor regarding GI issues he continues to experience. Restart Flomax as discussed and prescribed. Recent PSA results reviewed with the patient today; as noted above. Will obtain retroperitoneal ultrasound as planned. We discussed importance of following up as recommended. Discussed and stressed the importance of limiting/quitting nicotine dependence for overall health and well-being. Follow-up in 3 months with [facility]; or sooner with any issues, concerns, and or questions. Orders: Orders US retroperitoneal comp Today N28.1 - Cyst of kidney, acquired AMB Urinalysis Automated Today Z13.9 - Encounter for screening, unspecified Urine Cytology Today R31.29 - Other microscopic hematuria Medications: Refilled tamsulosin 0.4 mg PO BEDTIME 90 caps 2RF 90 days N40.1 - Benign prostatic hyperplasia with lower urinary tract symptoms, R35.1 - Nocturia Patient Instructions: The patient had an opportunity to ask questions regarding the treatment plan. All questions were answered. Physical exam, labs, and imaging were discussed and reviewed in detail. As well as risks, benefits, and discussion of treatment choices. No major barriers to understanding were identified. The patient expressed understanding and agreement with the above treatment plan. The patient was made aware they should contact our office by phone for worsening of their current condition, the appearance of new symptoms, or with any questions or concerns. Compliance is encouraged with any medications and follow up testing that is ordered. It is a privilege to be allowed the opportunity to participate in? your urological care.? Again, if you have any questions or concerns If you have any questions or concerns please do not hesitate to contact me. The office is [phone]. This note is constructed using voice recognition software. While every effort has been made to ensure accuracy energy crop farmer errors may have been included. Yours sincerely, TOÑO Vines Coding Level of Care Code Est Pt Level 3 (18277) Complex EM visit Add On G2211 Diagnoses Renal cyst N28.1 Microscopic hematuria R31.29 Nicotine dependence F17.200 History of urinary hesitancy Z87.898
--- OUTSIDE RECORDS SUMMARY | 2024-11-20 10:52 | XMS_ITS | Patient Health Record ---
Author Organization [facility] Address [address] [place] [address] Care Team Providers Care Rn Birthing Name Role Phone Sarah Canseco Primary Care Provider Daron Gonzalez [phone] ALLERGIES No Known Allergies REASON FOR REFERRAL [...] malignant neoplasm of colon (Z12.11) Active confirmed 550074236 Problem History of adenomatous polyp of colon (Z86.010) Active confirmed 150650110 Problem Encounter for screening for malignant neoplasm of rectum (Z12.12) Active confirmed Screening for malignant neoplasm of rectum (456507958) Problem Preprocedural examination (Z01.818) Active confirmed 63560283 Encounters Encounter Location Date Provider Diagnosis [facility] [place] [place] Out[place] [address] [facility] [place] [phone] 11/28/2023 Daron Veliz [facility] [place] [place] Outpatient [address] [place], [place] [phone] 05/02/2024 Daron Thrasher [facility] [address] [place] [phone] 12/11/2023 Daron Veliz [facility] [address] [place] [phone] 03/02/2024 Daron Veliz [facility] [address] [place] [address] 05/08/2024 Daron Veliz [facility] [address] [place] [phone] 05/21/2024 Daron Veliz PLAN OF TREATMENT Future Test Test Name Order Date COLONOSCOPY 10/14/2016 COLONOSCOPY 09/13/2023 Next Appt Details Provider Name:Daron Veliz , 12/28/2024 10:30:00 AM, [address] [place], [place], [phone], Insurance Providers Payer Name Payer Address Payer Phone Subscriber Number Group Number Insured Name Patient Relationship to Insured Coverage Start Date Coverage End Date [facility] [address] Attn Claims ARSH Ansari [id number] ELLE ELIAS Self - patient is the insured MEDICAL (GENERAL) HISTORY Medical History History ICD Code Screening Colonoscopy 1-27-2 009--1 small tubular adenoma, diverticulosis, internal hemorrhoids Kidney stones Denies [place],DM,CVA,Lung disease,renal dise ase Mild chronic anemia Negative screening colonoscopy in 05/2017 HTN Surgical History Surgery Date(Month/Year)
--- OUTSIDE RECORDS SUMMARY | 2024-11-20 10:52 | XMS_ITS ---
Author Organization [facility] Address [address] [place] [address] Care Team Providers Care Spar Machine Operator Name Role Phone Sarah Canseco Primary Care Provider Daron Gonzalez [phone] REASON FOR VISIT colonoscopy Encounters Encounter Location Date Provider Diagnosis [facility] [address] [place] [address] 05/21/2024 Daron Veliz PLAN OF TREATMENT Next Appt Details Provider Name:Draon Veliz , 12/28/2024 10:30:00 AM, [address] [facility] , [place], [place], [phone],
--- OUTSIDE RECORDS SUMMARY | 2024-11-20 10:53 | XMS_ITS | Clinical Summary ---
Author Organization [employer] Address [address] [facility] 7t [place] [address] Care Team Providers Care Car Dumper Operator Helper Name Role Phone Sarah Canseco MD Primary [...] Department Care Team Description 10/15/2024 Patient Outreach [facility] [address] [place] [address] Ty Fountain Recovery Supports from Last 3 Months Immunizations [...] Specific Antigen 0.59 <0.05 - 4.0 ng/mL [facility] Comment:PSA methodology: Abb jaxson Alijeanettety i ChemiluminescentMicroparticle Immunoassay (CMIA) 11/16/2024 12:4 5 PM EST 11/16/2024 12:45 PM EST us Generic External Data Provider LAB BLOOD ORDERAB LES Final Result Performing Organization Address City/State/[facility] Co de Phone Number [facility] [address] [place] [phone] * Hemoglobin A1c (02/10/2024 2:16 PM EDT) Hemoglobin A1c 5.8 <6.0 % [facility] Comment:Hemoglobin A1C Refer ence Range Adults: 4.8 - 6.0 % Non diabetic: < 6.0 % Goal: < 7.0 %Additional Action Suggested: > 8.0 %Note: Hemoglobin A1c results are invalid for patients with abnormal amounts of HbF. Blood transfusions may impact the HbA1c concentration in the patient sample. Estimated Average Glucose 120 mg/dL [facility] Comment:eAG = Estimated ave rage glucose which is %A1C expressed asaverage glucose, using the formula of the T5O-MnpelzaJbtiiil Glucose study (ADAG), Diabetes Care, Vol.31,#8,Apr. 2007 Blood Venous blood specimen / Unknown 02/10/2024 2:16 PM EDT 02/10/2024 4:12 PM EDT us Sarah Ziegler MD LAB BLOOD ORDERAB LES Final Result Performing Organization Address City/[facility]/ZIP Co de Phone Number [facility] [address] [place] [address] [phone] * Hepatitis C Antibody with Reflex to HCV, RNA, Quantitative, Real-Time PCR (07/11/2023 10:35 AM EDT) Hepatitis C Antibody Nonreactive Nonreactive [facility] Comment:Antibodies to HCV no t detected; does not exclude early acuteHCV infection. Blood Venous blood specimen / Unknown 07/11/2023 10:35 AM EDT 07/11/2023 11:27 AM EDT Sarah Ziegler MD LAB BLOOD ORDERAB LES Final Result Performing Organization Address [facility] Co de Phone Number [facility] [address] [place] [address] [phone] * Lipid Panel, Standard (07/11/2023 10:35 AM EDT) Triglycerides 61 <150 mg/dL [facility] Comment:Desirable Triglyceri de: less than 150 mg/dLBorderline High Triglyceride 150-199 mg/dLHigh Triglyceride: 200-499 mg/dLVery High Triglyceride: greater than or equal to 5OO mg/dL Cholesterol 169 <200 mg/dL [facility] Comment:Desirable Cholestero l: less than 200 mg/dLBorderline High Cholesterol: 200-239 mg/dLHigh Cholesterol: greater than 239 mg/dL LDL Cholesterol Calculated 91 <100 mg/dL [facility] Comment:Desirable LDL: less than 100 mg/dLNear Optimal/Above Optimal LDL: 110- 129 mg/dLBorderline High LDL: 130-159 mg/dLHigh LDL: 160-189 mg/dLVery High LDL: greater than or equal to 190 mg/dL HDL Cholesterol 66 >40 mg/dL [facility] Comment:Desirable HDL: great er than 40 mg/dL Note: This HDL assay may give artificially low results in patients with liver disease. Blood Venous blood specimen / Unknown 07/11/2023 10:35 AM EDT 07/11/2023 11:27 AM EDT us Sarah Ziegler MD LAB BLOOD ORDERAB LES Final Result [facility] [address] [place] [phone] * Hm Colonoscopy (05/31/2017) Colonoscopy Normal Normal Narrative Kristen Bowman - 05/31/2017 Repeat in 5 years us Historical Provider HEALTH MAINTENANCE Final Result from Last 3 Months or Most Recently Relevant to Health Maintenance Insurance BHUPINDER Olson [facility] [place] [id number] [place] [id number] Care Teams Car Dumper Operator Helper Relationship Specialty Start Date End Date Sarah Canseco MD [address] [place] [phone] PCP - General Internal Medicine 02/18/23
--- OUTSIDE RECORDS SUMMARY | 2024-11-20 10:53 | XMS_ITS | Encounter Summary ---
Author Organization [employer] Address [address] [facility] [address] 7t [place] [address] Care Team Providers Care Director Of Distance Learning Name Role Phone Sarah Canseco MD Primary Care Pro vider Encounter Details Date Type Department Care Team (Late st Contact Info) Description 08/05/2023 Abstract [facility] [address] [place], [place] [phone] Kristen Bowman Social History Tobacco Use Types [...] documented as of this encounter Care Teams Director Of Distance Learning Relationship Specialty Start Date End Date Sarah Canseco MD [address] [place] [phone] PCP - General Internal Medicine 02/18/23 documented as of this encounter
--- OUTSIDE RECORDS SUMMARY | 2024-11-20 10:53 | XMS_ITS ---
Author Organization [facility] Address [address] [place] [address] Care Team Providers Care Nuclear Licensing Engineer Name Role Phone Sarah Canseco Primary Care Provider Daron Gonzalez Unavailable [phone] REASON FOR VISIT BILLING SLIP? Encounters Encounter Location Date Provider Diagnosis [facility] [address] [place] [address] 05/08/2024 Daron Veliz PLAN OF TREATMENT Next Appt Details Provider Name:Daron Veliz , 12/28/2024 10:30:00 AM, [address] [place] [address] , [place], [place], [phone],
--- OUTSIDE RECORDS SUMMARY | 2024-11-20 10:53 | XMS_ITS | Encounter Summary ---
Author Organization [employer] Address [address] [place] [address] 7t [place] [address] Care Team Providers Care Resort Housekeeper Name Role Phone Sarah Canseco MD Primary Care Pro vider Reason for Visit * Reason Comments Med Refill Encounter Details Date Type Department Care Team ([facility] st Contact Info) Description 03/20/2024 Refill [facility] [address] [place], [place] [phone] Sarah Canseco MD [address] [place], [place] [phone] Social History Tobacco Use Types Packs/Day Years [...] documented as of this encounter Care Teams Resort Housekeeper Relationship Specialty Start Date End Date Sarah Canseco MD [address] [place] [phone] PCP - General Internal Medicine 02/18/23 documented as of this encounter
--- OUTSIDE RECORDS SUMMARY | 2024-11-20 10:53 | XMS_ITS ---
Author Organization [facility] Address [address] [place] [address] Care Team Providers Care Cone Winder Name Role Phone Sarah Canseco Primary Care Provider Daron Gonzalez Unavailable [phone] REASON FOR VISIT colon screening Encounters Encounter Location Date Provider Diagnosis [facility] [address] [place] [phone] 05/02/2024 Daron Veliz PLAN OF TREATMENT Next Appt Details Provider Name:Daron Veliz , 12/28/2024 10:30:00 AM, [address] [facility] , [place], [place], [phone],
== END 2024-11-20 10:50 | disposition home or self-care (01) ==
LOC: HO.HUSH 09:38
PROVIDERS: PCP Student in an Organized Health Care Education/Training Program; Visit Provider Nurse Practitioner Family
DX: N28.1 Cyst of kidney, acquired (principal); R31.29 Other microscopic hematuria; F17.200 Nicotine dependence, unspecified, uncomplicated; Z87.898 Personal history of other specified conditions; Z13.9 Encounter for screening, unspecified
CPT/HCPCS: 99213; G2211

== ENCOUNTER 2024-11-20 09:38 | Outpatient (REF) | payer OTHER, SELFPAY ==
--- OUTSIDE RECORDS SUMMARY | 2024-11-20 13:14 | XMS_ITS | Encounter Summary ---
Author Organization [employer] Address [address] [facility] 7t [place] [address] Care Team Providers Care Assessment Expert Name Role Phone Sarah Canseco MD Primary Care Pro vider Reason for Visit * Reason Onset Date Comments Medication Question 11/20/2024 Encounter Details Date Type Department Care Team ([facility] st Contact Info) Description 11/20/2024 Telephone [facility] [address] [place], [place] [phone] Sarah Canseco MD 230 [place], [place] [phone] Medication Question Social History Tobacco Use Types Packs/Day Years [...] AM EDT documented as of this encounter Miscellaneous Notes * Telephone Encounter - Steph Lester - 11/20/2024 12:05 PM EST PT walked in requesting a refill for the following medication PT does not know what the medication name is but states its for his stomach pains. PT has not had refills since PCP left and is having stomach pains. PT describes medication as small and beige. documented in this encounter Plan of Treatment Not on file documented as of this encounter Visit Diagnoses Not on filedocumented in this encounter Additional Health Concerns Assessment Noted Time PHQ-9 Depression Total Score: 0 07/11/20 9:13 AM EDT documented as of this encounter Care Teams Assessment Expert Relationship Specialty Start Date End Date Sarah Canseco MD [address] [place] [address] PCP - General Internal Medicine 02/18/23 documented as of this encounter
--- OUTSIDE RECORDS SUMMARY | 2024-11-20 13:14 | XMS_ITS | Encounter Summary ---
Author Organization [employer] Address [address] [facility] [address] 7t [place] [address] Care Team Providers Care Organic Preparation Technician Name Role Phone Sarah Canseco MD Primary Care Pro vider Encounter Details Date Type Department Care Team (Late st Contact Info) Description 08/05/2023 Abstract [facility] [address] [place], [place] [phone] Kristen Bowman Social History Tobacco Use Types [...] documented as of this encounter Care Teams Organic Preparation Technician Relationship Specialty Start Date End Date Sarah Canseco MD [address] [place] [phone] PCP - General Internal Medicine 02/18/23 documented as of this encounter
--- OUTSIDE RECORDS SUMMARY | 2024-11-20 13:14 | XMS_ITS | Clinical Summary ---
Author Organization [employer] Address [address] [facility] [address] 7t [place] [address] Care Team Providers Care Clay Pigeon Loader Name Role Phone Sarah Canseco MD Primary [...] Encounters Date Type Department Care Team Description 11/20/2024 Telephone [facility] [address] [place] [address] Sarah Canseco MD Medication Question 10/15/2024 Patient Outreach [facility] [address] [place] [address] Ty Fountain Recovery Supports from [...] Specific Antigen 0.59 <0.05 - 4.0 ng/mL [facility] Comment:PSA methodology: Abb jaxson Alinity i ChemiluminescentMicroparticle Immunoassay (CMIA) 11/16/2024 12:4 5 PM EST 11/16/2024 12:45 PM EST us Generic External Data Provider LAB BLOOD ORDERAB LES Final Result [facility] [address] [place] [phone] * Hemoglobin A1c (02/10/2024 2:16 PM EDT) Hemoglobin A1c 5.8 <6.0 % [facility] Comment:Hemoglobin A1C Refer ence Range Adults: 4.8 - 6.0 % Non diabetic: < 6.0 % Goal: < 7.0 %Additional Action Suggested: > 8.0 %Note: Hemoglobin A1c results are invalid for patients with abnormal amounts of HbF. Blood transfusions may impact the HbA1c concentration in the patient sample. Estimated Average Glucose 120 mg/dL [facility] Comment:eAG = Estimated ave rage glucose which is %A1C expressed asaverage glucose, using the formula of the M3I-LskhowdGtlooqf Glucose study (ADAG), Diabetes Care, Vol.31,#8,Apr. 2007 Blood Venous blood specimen / Unknown 02/10/2024 2:16 PM EDT 02/10/2024 4:12 PM EDT us Sarah Ziegler MD LAB BLOOD ORDERAB LES Final Result Performing Organization Address [facility]/ZIP Co de Phone Number [facility] [address] [place] [address] [phone] * Hepatitis C Antibody with Reflex to HCV, RNA, Quantitative, Real-Time PCR (07/11/2023 10:35 AM EDT) Hepatitis C Antibody Nonreactive Nonreactive [facility] Comment:Antibodies to HCV no t detected; does not exclude early acuteHCV infection. Blood Venous blood specimen / Unknown 07/11/2023 10:35 AM EDT 07/11/2023 11:27 AM EDT us Sarah Ziegler MD LAB BLOOD ORDERAB LES Final Result Performing Organization Address City/[facility]/ZIP Co de Phone Number [facility] [address] [place] [address] [phone] * Lipid Panel, Standard (07/11/2023 10:35 AM EDT) Triglycerides 61 <150 mg/dL [facility] Comment:Desirable Triglyceri de: less than 150 mg/dLBorderline High Triglyceride 150-199 mg/dLHigh Triglyceride: 200-499 mg/dLVery High Triglyceride: greater than or equal to 5OO mg/dL Cholesterol 169 <200 mg/dL [facility] Comment:Desirable Cholestero l: less than 200 mg/dLBorderline High Cholesterol: 200-239 mg/dLHigh Cholesterol: greater than 239 mg/dL LDL Cholesterol Calculated 91 <100 mg/dL [facility] Comment:Desirable LDL: less than 100 mg/dLNear Optimal/Above Optimal LDL: 110- 129 mg/dLBorderline High LDL: 130-159 mg/dLHigh LDL: 160-189 mg/dLVery High LDL: greater than or equal to 190 mg/dL HDL Cholesterol 66 >40 mg/dL [facility] Comment:Desirable HDL: great er than 40 mg/dL Note: This HDL assay may give artificially low results in patients with liver disease. Blood Venous blood specimen / Unknown 07/11/2023 10:35 AM EDT 07/11/2023 11:27 AM EDT us Sarah Ziegler MD LAB BLOOD ORDERAB LES Final Result [facility] [address] [place] [phone] * Colonoscopy (05/31/2017) Colonoscopy Normal Normal Narrative Kristen Bowman - 05/31/2017 Repeat in 5 years us Historical Provider HEALTH MAINTENANCE Final Result from Last 3 Months or Most Recently Relevant to Health Maintenance Insurance [facility] [address] Indio GreeneBHUPINDER pack [id number] Care Teams Clay Pigeon Loader Relationship Specialty Start Date End Date Sarah Canseco MD [address] [place] [phone] PCP - General Internal Medicine 02/18/23
--- OUTSIDE RECORDS SUMMARY | 2024-11-20 13:14 | XMS_ITS | Encounter Summary ---
Author Organization [employer] Address [address] [place] [address] 7t [place] [address] Care Team Providers Care Sales Project Administrator Name Role Phone Sarah Canseco MD Primary Care Pro vider Reason for Visit * Reason Comments Med Refill Encounter Details Date Type Department Care Team ([facility] st Contact Info) Description 03/20/2024 Refill [facility] [address] [place], [place] [phone] Sarah Canseco MD [address] [place], [place] [phone] Social History Tobacco Use Types Packs/Day Years [...] documented as of this encounter Care Teams Sales Project Administrator Relationship Specialty Start Date End Date Sarah Canseco MD [address] [place] [phone] PCP - General Internal Medicine 02/18/23 documented as of this encounter
[2024-11-20 16:44] LABS: Urine Cytology See Pathology rpt
== END 2024-11-20 09:39 | disposition home or self-care (01) ==
LOC: HO.LNP 09:38
PROVIDERS: PCP Student in an Organized Health Care Education/Training Program; Visit Provider Nurse Practitioner Family
DX: R31.29 Other microscopic hematuria (principal); N28.1 Cyst of kidney, acquired; F17.200 Nicotine dependence, unspecified, uncomplicated; Z87.898 Personal history of other specified conditions
CPT/HCPCS: 81003; 88112; 99212

== ENCOUNTER 2025-04-22 10:05 | Outpatient (REF) | payer OTHER, SELFPAY ==
--- OUTSIDE RECORDS SUMMARY | 2024-12-28 05:30 | XMS_ITS ---
Author Organization [facility] Address [address] [facility] [address] [place] [address] Care Team Providers Care Director Of Accounts Payable Name Role Phone Sarah Canseco Primary Care Provider Daron Gonzalez [phone] REASON FOR VISIT colon screening Encounters Encounter Location Date Provider Diagnosis [facility] Out[place] [address] [place] [phone] 12/28/2024 Daron Veliz Plan Of Treatment Next Appt Details Provider Name:Daron Veliz , 07/17/2025 01:20:00 PM, [address] [facility], [address], [place], [address], Progress Notes * BRUNILDA ELIASALEJANDROOB:1950 (75 yo M)Acc No.[id number]:12/28/2024 COLON WITH MAC Patient: ELLE BELTRAN Provider: Eol Veliz MD :1950 A ge:74 Y S ex:Male Date:12/28/2024 Address:[address] [place] [address] [id number] Pcp:Sarah Ziegler Subjective: * Chief Complaints: * [...] 12/28/2024 Generated for [facility]/Dustin/eTransmitting on: 0 04/22/2025 10:43 AM EDT
--- OUTSIDE RECORDS SUMMARY | 2025-04-22 10:44 | XMS_ITS | Encounter Summary ---
Author Organization [employer] Address [address] [place] [address] [address] [place] [address] Care Team Providers Care Map Compiler Name Role Phone aSrah Canseco MD Primary Care Pro vider Reason for Visit * Reason Comments Med Refill Encounter Details Date Type Department Care Team (Late st Contact Info) Description 03/20/2024 Refill [facility] MEDICINE [address], [place] [phone] Sarah Canseco MD [address] [place], [place] [phone] Social History Tobacco Use Types Packs/Day Years [...] as of this encounter Plan of Treatment Upcoming Encounters Date Type Department Care Team (Late st Contact Info) Description 04/22/2025 11:30 AM EDT Clinical Support [facility] MEDICINE [address] [place] [phone] 05/02/2025 11:15 AM EDT Office Visit [facility] MEDICINE [address] [place] [phone] Sarah Canseco MD [address] [place] [phone] documented as of this encounter Visit Diagnoses Not on filedocumented in this encounter Additional Health Concerns Assessment Noted Time PHQ-9 Depression Total Score: 0 07/11/20 9:13 AM EDT documented as of this encounter Care Teams Map Compiler Relationship Specialty Start Date End Date Sarah Canseco MD [address] [place] [phone] PCP - General Internal Medicine 02/18/23 documented as of this encounter
--- OUTSIDE RECORDS SUMMARY | 2025-04-22 10:44 | XMS_ITS | Clinical Summary ---
Author Organization [facility] [address] [facility] Address [address] [place] [address] Phone Care Team Providers Care Finance Teacher Name Role Phone Dakotah Wiley MD Primary Care Provider [phone] Allergies No known active allergies Medications No known medications Active Problems No known active problems Encounters Date Type Department Care Team Description 02/13/2025 9:58 AM EDT - 02/13/2025 2:36 PM EDT Emergency [facility] Emergency [address] [place] [address] Chest pain, unspecified type (Primary Dx); Hypomagnesemia; Hematuria, unspecified type Discharge Disposition: Left Against Medical Advice from Last 3 Months Social History Tobacco Use Types Packs/Day Years Used Date Smoking Tobacco: Never Assessed Sex and Gender Information Value Date Recorded Sex Assigned at Not on file Legal Sex Male 4:29 AM EST Gender Identity Not on file Sexual Orientation Not on file Obstetrics History Last Filed Vital Signs Vital Sign Reading Time Taken Comments Blood Pressure 128/108 02/13/2025 12:43 PM EDT Pulse 77 02/13/2025 12:43 PM EDT Temperature 37.2 C (98.9 F) 02/13/2025 12:43 PM EDT Respiratory Rate 17 02/13/2025 12:43 PM EDT Oxygen Saturation 99% 02/13/2025 12:43 PM EDT Inhaled Oxygen Concentration - - Weight 59 kg (130 lb) 02/13/2025 10:30 AM EDT Height 165.1 cm (5' 5 ) 02/13/2025 10:30 AM EDT Body Mass Index 21.63 02/13/2025 10:30 AM EDT Plan of Treatment Health Maintenance Due Date Last Done Comments Hepatitis B Vaccines (2 of 3 - 19+ 3-dose series) 11/17/2007 10/20/2007 Hepatitis A Vaccines (2 of 2 - Risk 2-dose series) 04/19/2008 10/20/2007 Falls Risk Assessment 08/22/2022 Social Influencers of Health Screening 08/22/2022 COVID-19 Vaccine ( season) 2024 08/18/2021, 12/16/2020 Depression Screening 09/19/2024 Influenza Vaccine (#1) 2025 , 07/01/2022, 08/18/2021, Additional history exists Hypertension/CHF/CAD Annual BMP Blood Test 02/13/2026 02/13/2025 Cholesterol Screening (Lipid Panel) 07/11/2028 07/11/2023 DTaP,Tdap,and Td Vaccines (5 - Td or Tdap) 07/01/2032 07/01/2022, 05/27/2021, 01/25/2012, Additional history exists MMR Vaccines Aged Out 09/23/2011 No longer eligi ble based on patient's age to complete this topic Hepatitis C Screening Completed 07/11/2023 Pneumococcal Vaccine: 50+ Years Completed 07/11/2023, 08/18/2021, 10/20/2009 RSV Immunization Adult Patients Completed 01/19/2024 Zoster Vaccines Completed 03/20/2024, 01/19/2024 HIB Vaccines Aged Out No longer eligi ble based on patient's age to complete this topic HPV Vaccines Aged Out No longer eligi ble based on patient's age to complete this topic IPV Vaccines Aged Out No longer eligi ble based on patient's age to complete this topic Meningococcal ACWY Vaccine Aged Out N o longer eligible based on patient's age to complete this topic Meningococcal B Vaccine Aged Out No l onger eligible based on patient's age to complete this topic RSV Immunization Patients Under 20 months Aged Out No longer eligible based on patient's age to complete this topic Varicella Vaccines Aged Out No longer eligible based on patient's age to complete this topic Procedures Procedure Name Priority Date/Time Associated Diagnosis Comments ECG ANNOTATED 02/14/2025 CT ABDOMEN PELVIS WO CONTRAST STAT 02/13/2025 1:45 PM EDT ECG 12-LEAD STAT 02/13/2025 12:14 PM EDT MOJICA URINE CULTURE TUBE STAT 02/13/2025 12:06 PM EDT URINALYSIS WITH REFLEX MICROSCOPIC AND CULTURE STAT 02/13/2025 12:06 PM EDT URINALYSIS WITH REFLEX MICROSCOPIC AND CULTURE STAT 02/13/2025 12:06 PM EDT CBC WITH AUTO DIFFERENTIAL STAT 02/13/2025 10:27 AM EDT B-TYPE NATRIURETIC PEPTIDE STAT 02/13/2025 10:27 AM EDT MAGNESIUM STAT 02/13/2025 10:27 AM EDT LIPASE STAT 02/13/2025 10:27 AM EDT COMPREHENSIVE METABOLIC PANEL STAT 02/13/2025 10:27 AM EDT CBC AND DIFFERENTIAL STAT 02/13/2025 10:27 AM EDT TROPONIN I HIGH SENSITIVITY STAT 02/13/2025 10:27 AM EDT ECG 12-LEAD STAT 02/13/2025 10:15 AM EDT from Last 3 Months Results * ECG-Annotated (02/14/2025) us Provider Onbase MD ECG ORDERABLES Final Result * CT Abdomen Pelvis wo Contrast (02/13/2025 1:45 PM EDT) Anatomical Region Laterality Modality Body Computed Tomogra phy 02/13/2025 2:03 PM EDT Impressions 02/13/2025 2:10 PM EDT No renal/ureteral calculi or hydronephrosis. No acute findings in the abdomen/pelvis. Hepatic steatosis. -------- FINAL REPORT -------- Dictated By: GERARDO CEBALLOS Dictated Date: 02/13/2025 14:03 ET Assigned Physician: GERARDO CEBALLOS Reviewed and Electronically Signed By: GERARDO CEBALLOS Signed Date: 02/13/2025 14:10 ET Workstation ID: [id number] Transcribed By: Self Edit Transcribed Date: 02/13/2025 14:03 ET Narrative 02/13/2025 2:10 PM EDT PROCEDURE: CT abdomen/pelvis INDICATION: Flank pain TECHNIQUE: CT of the abdomen and pelvis without contrast. Multiplanar reformats. The examination was performed utilizing dose reduction techniques. Total DLP 475 COMPARISON: No priors available. FINDINGS: LOWER THORAX: Bibasilar atelectasis. HEPATOBILIARY: Hepatic steatosis. No focal liver lesions. Gallbladder and biliary tree are within normal limits. SPLEEN: No splenomegaly. PANCREAS: No focal mass or ductal dilatation. ADRENALS: No nodules. KIDNEYS/URETERS: No hydronephrosis, stones, or solid mass. Bilateral peripelvic cysts. PELVIC ORGANS/BLADDER: Mild prostate enlargement. Bladder is within normal limits. PERITONEUM / RETROPERITONEUM: No ascites or free air. No retroperitoneal lymphadenopathy. VESSELS: The abdominal aorta is normal in size. GI TRACT: No bowel obstruction or wall thickening. Normal appendix. BONES AND SOFT TISSUES: Small fat-containing left inguinal hernia. Mild degenerative changes seen throughout the bones. Procedure Note Gerardo Ceballos MD - 02/13/2025 PROCEDURE: CT abdomen/pelvis INDICATION: Flank pain TECHNIQUE: CT of the abdomen and pelvis without contrast. Multiplanarreformats. The examination was performed utilizing dose reductiontechniques. Total DLP 475 COMPARISON: No priors available. FINDINGS: LOWER THORAX: Bibasilar atelectasis. HEPATOBILIARY: Hepatic steatosis. No focal liver lesions. Gallbladderand biliary tree are within normal limits. SPLEEN: No splenomegaly. PANCREAS: No focal mass or ductal dilatation. ADRENALS: No nodules. KIDNEYS/URETERS: No hydronephrosis, stones, or solid mass. Bilateralperipelvic cysts. PELVIC ORGANS/BLADDER: Mild prostate enlargement. Bladder is withinnormal limits. PERITONEUM / RETROPERITONEUM: No ascites or free air. No retroperitoneallymphadenopathy. VESSELS: The abdominal aorta is normal in size. GI TRACT: No bowel obstruction or wall thickening. Normal appendix. BONES AND SOFT TISSUES: Small fat-containing left inguinal hernia. Milddegenerative changes seen throughout the bones. IMPRESSION: No renal/ureteral calculi or hydronephrosis. No acute findings in theabdomen/pelvis. Hepatic steatosis. -------- FINAL REPORT -------- Dictated By: GERARDO CEBALLOS Dictated Date: 02/13/2025 14:03 ET Assigned Physician: GERARDO CEBALLOS Reviewed and Electronically Signed By: GERARDO CEBALLOS Signed Date: 02/13/2025 14:10 ET Workstation ID: [id number] Transcribed By: Self Edit Transcribed Date: 02/13/2025 14:03 ET us Raiza CABAN IMG CT PROCEDURES Final Re sult * ECG 12 lead (02/13/2025 12:14 PM EDT) Only the most recent of2 resultswithin the time period is included. Ventricular Rate ECG 58 BPM GEMUSE Atrial Rate 58 BPM GEMUSE P-R Interval 168 ms GEMUSE QRS Duration 90 ms GEMUSE Q-T Interval 452 ms GEMUSE QTc 443 ms GEMUSE P Wave Minot 70 degrees GEMUSE R Min[place] 40 degrees GEMUSE T Minot 53 degrees GEMUSE ECG Interpretation Sinus bradycardia with sinus arrhythmia Moderate voltage criteria for LVH, may be normal variant Borderline ECG When compared with ECG of 13-FEB-2025 10:15, (unconfirmed) No significant change was found Confirmed by Kiran GUIDRY, ENRIQUE ([id number]) on 02/14/2025 7:21:49 PM GEMUSE 02/13/2025 12:1 4 PM EDT 02/14/2025 7:21 PM EDT us Neville Gupta MD ECG ORDERABLES Final Result GEMUSE * (ABNORMAL) Urinalysis with reflex microscopic and culture (02/13/2025 12:06 PM EDT) Pathologist [facility] [place] Urine 1.012 1.003 - 1.030 LAB URINALYSIS - AUTOMATED METHOD 02/13/2025 1:12 PM [facility] pH, Urine 8.0 5.0 - 8.0 pH LAB URINALYSIS - AUTOMATED METHOD 02/13/2025 1:12 PM [facility] Leukocytes, Urine Negative Negative LAB URINALYSIS - AUTOMATED METHOD 02/13/2025 1:12 PM [facility] Nitrite, Urine Negative Negative LAB URINALYSIS - AUTOMATED METHOD 02/13/2025 1:12 PM [facility] Protein, Urine 100(A) <=Trace mg/dL LAB URINALYSIS - AUTOMATED METHOD 02/13/2025 1:12 PM [facility] Glucose, Urine 250(A) Negative mg/dL LAB URINALYSIS - AUTOMATED METHOD 02/13/2025 1:12 PM [facility] Ketones, Urine Trace(A) Negative mg/dL LAB URINALYSIS - AUTOMATED METHOD 02/13/2025 1:12 PM [facility] Urobilinogen , Urine 0.2 0.2 - 1.0 mg/dL LAB URINALYSIS - AUTOMATED METHOD 02/13/2025 1:12 PM [facility] Bilirubin, Urine Negative Negative LAB URINALYSIS - AUTOMATED METHOD 02/13/2025 1:12 PM [facility] Blood, Urine Moderate(A) Negative LAB URINALYSIS - AUTOMATED METHOD 02/13/2025 1:12 PM [facility] RBC, Urine 48.7(H) 0 - 4 /HPF LAB URINALYSIS - AUTOMATED METHOD 02/13/2025 1:12 PM [facility] WBC, Urine 0.4 0 - 4 /HPF LAB URINALYSIS - AUTOMATED METHOD 02/13/2025 1:12 PM [facility] Squamous Epithelial, Urine 6 0 - 60 /LPF LAB URINALYSIS - AUTOMATED METHOD 02/13/2025 1:12 PM EDT [facility] Bacteria, Urine Negative Negative /HPF LAB URINALYSIS - AUTOMATED METHOD 02/13/2025 1:12 PM EDT [facility] Hyaline Casts, Urine 0.0 0 - 3 /LPF LAB URINALYSIS - AUTOMATED METHOD 02/13/2025 1:12 PM EDT [facility] Urine Urine specimen obtained by clean catch procedure / Unknown Non-blood Collection / Unknown 02/13/2025 12:06 PM EDT 02/13/2025 1:02 PM EDT Raiza CABAN LAB URINE ORDERABLES Final Result Performing Organization Address [facility]/ZIP Co de Phone Number [facility] [address] [place] [address], [place] [phone] * Mojica urine culture tube (02/13/2025 12:06 PM EDT) [facility] Extra Tube Hold for add-ons. 02/13/2025 3:02 PM EDT [facility] Comment:Auto resulted. Urine Urine specimen obtained by clean catch procedure / Unknown Non-blood Collection / Unknown 02/13/2025 12:06 PM EDT 02/13/2025 1:02 PM EDT Raiza CABAN LAB URINE ORDERABLES Final Result [facility] [address] [place] [address], [place] [phone] * Troponin I high sensitivity (02/13/2025 10:27 AM EDT) [facility] High Sensitivity Troponin I 16 <=79 ng/L LAB CHEMISTRY METHOD 02/13/2025 11:16 AM EDT [facility] Blood Venous blood specimen / Unknown Venipuncture / Unknown 02/13/2025 10:27 AM EDT 02/13/2025 10:45 AM EDT Narrative [facility] - 02/13/2025 11:16 AM EDT High levels of biotin in samples may falsely decrease hsTroponin values. Use caution when interpreting hsTroponin results in patients taking biotin who exhibit renal impairment (eGFR <60) or in patients taking more than 20 mg/day of biotin. us Neville Gupta MD LAB BLOOD ORDERABLES Final Resu lt [facility] [address] [place] [address], * (ABNORMAL) CBC auto differential (02/13/2025 10:27 AM EDT) WBC 16.3(H) 4.8 - 10.8 K/mcL LAB HEMETOLOGY METHOD [facility] RBC 4.30(L) 4.50 - 5.50 M/mcL LAB HEMETOLOGY METHOD 02/13/2025 10:55 AM EDT [facility] Hemoglobin 12.2(L) 13.5 - 17.5 g/dL LAB HEMETOLOGY METHOD 02/13/2025 10:55 AM [facility] Hematocrit 35.4(L) 42.0 - 54.0 % LAB HEMETOLOGY METHOD 02/13/2025 10:55 AM EDT [facility] MCV 81.6 79.0 - 98.0 FL LAB HEMETOLOGY METHOD 02/13/2025 10:55 AM EDT [facility] MCH 28.1 27.0 - 32.0 pcg LAB HEMETOLOGY METHOD 02/13/2025 10:55 AM [facility] MCHC 34.5 32.0 - 37.0 g/dL LAB HEMETOLOGY METHOD 02/13/2025 10:55 AM [facility] RDW 13.6 11.0 - 15.0 % LAB HEMETOLOGY METHOD 02/13/2025 10:55 AM [facility] Platelets 255 130 - 400 K/[facility] LAB HEMETOLOGY METHOD 02/13/2025 10:55 AM [facility] MPV 10.2 7.0 - 11.0 FL LAB HEMETOLOGY METHOD 02/13/2025 10:55 AM [facility] NRBC 0.0 <1.0 % LAB HEMETOLOGY METHOD 02/13/2025 10:55 AM [facility] NRBC Absolute 0.00 <0.10 K/[facility] LAB HEMETOLOGY METHOD 02/13/2025 10:55 AM [facility] Neutrophils Relative 92.1 % LAB HEMETOLOGY METHOD 02/13/2025 10:55 AM [facility] Lymphocytes Relative 3.8 % LAB HEMETOLOGY METHOD 02/13/2025 10:55 AM [facility] Monocytes Relative 3.4 % LAB HEMETOLOGY METHOD 02/13/2025 10:55 AM [facility] Eosinophils Relative 0.0 % LAB HEMETOLOGY METHOD 02/13/2025 10:55 AM [facility] Basophils Relative 0.1 % LAB HEMETOLOGY METHOD 02/13/2025 10:55 AM [facility] Immature Granulocytes Relative 0.6 % LAB HEMETOLOGY METHOD 02/13/2025 10:55 AM [facility] Neutrophils Absolute 15.02(H) 1.50 - 7.00 K/[facility] LAB HEMETOLOGY METHOD 02/13/2025 10:55 AM [facility] Lymphocytes Absolute 0.62(L) 1.00 - 5.00 K/[facility] LAB HEMETOLOGY METHOD 02/13/2025 10:55 AM EDT [facility] Monocytes Absolute 0.56 0.20 - 1.00 K/[facility] LAB HEMETOLOGY METHOD 02/13/2025 10:55 AM EDT [facility] Eosinophils Absolute 0.00 0.00 - 0.50 K/[facility] LAB HEMETOLOGY METHOD 02/13/2025 10:55 AM EDT [facility] Basophils Absolute 0.02 0.00 - 0.20 K/[facility] LAB HEMETOLOGY METHOD 02/13/2025 10:55 AM EDT [facility] Immature Granulocytes Absolute 0.09(H) 0.00 - 0.03 K/[facility] LAB HEMETOLOGY METHOD 02/13/2025 10:55 AM EDT [facility] Blood Venous blood specimen / Unknown Venipuncture / Unknown 02/13/2025 10:27 AM EDT 02/13/2025 10:45 AM EDT us Neville Gupta MD LAB BLOOD ORDERABLES Final Resu lt Performing Organization Address City/[facility]/ZIP Co de Phone Number [facility] [address] [place] [address], [place] [phone] * (ABNORMAL) B-type natriuretic peptide (02/13/2025 10:27 AM EDT) BNP 106(H) <=100 pcg/mL LAB CHEMISTRY METHOD 02/13/2025 11:22 AM EDT [facility] Blood Venous blood specimen / Unknown Venipuncture / Unknown 02/13/2025 10:27 AM EDT 02/13/2025 10:45 AM EDT us Neville Gupta MD LAB BLOOD ORDERABLES Final Resu lt [facility] [address] [place] [address], [place] [phone] * (ABNORMAL) Magnesium (02/13/2025 10:27 AM EDT) Pathologist [facility] Magnesium 1.7(L) 1.9 - 2.6 mg/dL LAB CHEMISTRY METHOD 02/13/2025 11:23 AM EDT [facility] Blood Venous blood specimen / Unknown Venipuncture / Unknown 02/13/2025 10:27 AM EDT 02/13/2025 10:45 AM EDT us Neville Gupta MD LAB BLOOD ORDERABLES Final Resu lt Performing Organization Address City/[facility]/ZIP Co de Phone Number [facility] [address] [place] [address], [place] [phone] * Lipase (02/13/2025 10:27 AM EDT) [facility] Lipase 19 13 - 75 unit/L LAB CHEMISTRY METHOD 02/13/2025 11:23 AM EDT [facility] Blood Venous blood specimen / Unknown Venipuncture / Unknown 02/13/2025 10:27 AM EDT 02/13/2025 10:45 AM EDT us Neville Gupta MD LAB BLOOD ORDERABLES Final Resu lt Performing Organization Address City/[facility]/ZIP Co de Phone Number [facility] [address] [place] [address], [place] [phone] * (ABNORMAL) Comprehensive metabolic panel (02/13/2025 10:27 AM EDT) [facility] Sodium 134 133 - 145 mmol/L LAB CHEMISTRY METHOD 02/13/2025 11:23 AM EDT [facility] Potassium 3.5 3.5 - 5.5 mmol/L LAB CHEMISTRY METHOD 02/13/2025 11:23 AM EDT [facility] Chloride 103 96 - 110 mmol/L LAB CHEMISTRY METHOD 02/13/2025 11:23 AM [facility] CO2 21 21 - 32 mmol/L LAB CHEMISTRY METHOD 02/13/2025 11:23 AM [facility] Anion Gap 10 3 - 11 LAB CHEMISTRY METHOD 02/13/2025 11:23 AM [facility] Glucose 170(H) 70 - 100 mg/dL LAB CHEMISTRY METHOD 02/13/2025 11:23 AM [facility] BUN 16 5 - 25 mg/dL LAB CHEMISTRY METHOD 02/13/2025 11:23 AM [facility] Creatinine 0.82 0.70 - 1.30 mg/dL LAB CHEMISTRY METHOD 02/13/2025 11:23 AM [facility] eGFR 92 >=60 mL/min/1. 73m2 LAB CHEMISTRY METHOD 02/13/2025 11:23 AM [facility] Comment:Calculation based on the Chronic Kidney Disease Epidemiology Collaboration (CKD-EPI) equation refit without adjustment for race. BUN/Creatinine Ratio 19.5 LAB CHEMISTRY METHOD 02/13/2025 11:23 AM [facility] Calcium 9.2 8.5 - 10.5 mg/dL LAB CHEMISTRY METHOD 02/13/2025 11:23 AM [facility] AST (SGOT) 25 10 - 42 unit/L LAB CHEMISTRY METHOD 02/13/2025 11:23 AM [facility] ALT (SGPT) 27 10 - 60 unit/L LAB CHEMISTRY METHOD 02/13/2025 11:23 AM [facility] Alkaline Phosphatase 75 42 - 121 unit/L LAB CHEMISTRY METHOD 02/13/2025 11:23 AM [facility] Total Protein 7.9 6.0 - 8.0 g/dL LAB CHEMISTRY METHOD 02/13/2025 11:23 AM [facility] Albumin 4.1 3.2 - 5.0 g/dL LAB CHEMISTRY METHOD 02/13/2025 11:23 AM EDT [facility] Total Bilirubin 0.5 0.0 - 1.4 mg/dL LAB CHEMISTRY METHOD 02/13/2025 11:23 AM EDT [facility] Blood Venous blood specimen / Unknown Venipuncture / Unknown 02/13/2025 10:27 AM EDT 02/13/2025 10:45 AM EDT us Neville Gupta MD LAB BLOOD ORDERABLES Final Resu lt [facility] ([facility] [address] [place] [address], from Last 3 Months Insurance [facility] Member Subscriber Plan / Payer (Ef fective 2015-Present) Name:Gonzales De La Torre Relation to Subscriber:Self Name:Gonzales De La Torre Payer ID:[id number] Group ID:[id number] Type:Not on file Address: [address] [place] [id number] [facility] Care Teams Finance Teacher Relationship Specialty Start Date End Date Dakotah Wiley MD [address] [place] [phone] PCP - General Internal Medicine 11/02/21
[2025-04-22 11:41] LABS: Hemoglobin A1C 125.5175 umol/L; Total Hemoglobin (HGBA1C) 3187.1929 umol/L
[2025-04-22 11:45] LABS: Hematocrit 35.0 % (42.0-52.0); Hemoglobin 11.9 g/dl (14.0-18.0); Mean Corpuscular HGB Conc 34.0 g/dl (31.0-36.0); Mean Corpuscular Hemoglobin 28.5 pg (27.0-33.0); Mean Corpuscular Volume 83.7 fL (80.0-98.0); NRBC Abs Auto 0.000 X10*3/uL (0.0-0.012); NRBC Pct Auto 0.0 /100WBC (0.0-0.2); Platelet Count 253 X10*3/uL (160-400); Red Blood Count 4.18 X10*6/uL (4.60-5.80); White Blood Count 6.2 X10*3/uL (4.8-10.8)
[2025-04-22 12:16] LABS: B Type Natriuretic Peptide 37 pg/mL (<100)
[2025-04-22 12:21] LABS: Alanine Aminotransferase 23 U/L (0-40); Albumin Level 4.4 g/dL (3.5-5.0); Alkaline Phosphatase 59 U/L (39-117); Anion Gap 12 (12-20); Aspartate Amino Transferase 32 U/L (5-37); Blood Urea Nitrogen 15 mg/dL (9-16); Calcium 9.3 mg/dL (8.4-10.2); Carbon Dioxide 30 mmol/L (22-29); Chloride 103 mmol/L (96-108); Cholesterol 131 mg/dL (<200); Estimated Glomerular Filt Rate > 60; HDL Cholesterol 58 mg/dL (>40); Magnesium 2.0 mg/dL (1.6-2.6); Potassium 3.8 mmol/L (3.3-5.1); Sodium 141 mmol/L (135-145); Total Protein 7.1 g/dL (6.5-8.0); Triglycerides 58 mg/dL (<150)
[2025-04-22 12:24] LABS: Alanine Aminotransferase 23 U/L (0-40); Albumin Level 4.4 g/dL (3.5-5.0); Alkaline Phosphatase 59 U/L (39-117); Anion Gap 12 (12-20); Aspartate Amino Transferase 31 U/L (5-37); Blood Urea Nitrogen 14 mg/dL (9-16); Calcium 9.3 mg/dL (8.4-10.2); Carbon Dioxide 29 mmol/L (22-29); Chloride 102 mmol/L (96-108); Estimated Glomerular Filt Rate > 60; Magnesium 2.0 mg/dL (1.6-2.6); Potassium 3.7 mmol/L (3.3-5.1); Sodium 139 mmol/L (135-145); Total Protein 7.2 g/dL (6.5-8.0)
[2025-04-22 12:31] LABS: Microalbum/Creatinine Ratio Ur 8.4 ug/mg cr (<30)
[2025-04-22 12:40] LABS: Syphilis Screen Nonreactive (Nonreactive)
[2025-04-22 12:42] LABS: HBS Num1 200.20 mIU/mL (0-7.99); HBc Num1 9.90 S/CO (0.00-0.79); HBsAGNum1 0.30 S/CO (0.00-0.99); HIV Num 1 0.05 S/CO (0.00-0.99); Hepatitis B Surface Antigen Negative (Negative); ~HepC Num1 0.23 S/CO (0.00-0.79); ~Hepatitis B Surface Antibody REACTIVE (Nonreactive); ~Hepatitis C Antibody Nonreactive (Nonreactive)
[2025-04-22 12:51] LABS: Folate 12.4 ng/mL (> or = 4.0); Vitamin B12 713 pg/mL (200-900)
[2025-04-22 14:23] LABS: HBc Num2 10.40 S/CO; HBc Num3 9.69 S/CO
[2025-04-23 07:44] LABS: Hepatitis B Core Antibody IgM NON-REACTIVE (NON-REACTIVE)
== END 2025-04-22 10:06 | disposition home or self-care (01) ==
LOC: HO.HHCL 10:05
PROVIDERS: PCP Student in an Organized Health Care Education/Training Program; Referring Provider Nurse Practitioner Family; Visit Provider Student in an Organized Health Care Education/Training Program
DX: Z11.4 Encounter for screening for human immunodeficiency virus [HIV] (principal); Z11.3 Encounter for screening for infections with a predominantly sexual mode of transmission; Z11.59 Encounter for screening for other viral diseases; Z01.84 Encounter for antibody response examination; R10.9 Unspecified abdominal pain; E83.42 Hypomagnesemia
CPT/HCPCS: 36415; 80053; 80061; 82043; 82306; 82570; 82607; 82746; 83036; 83735; 83880; 84443; 85027; 86704; 86705; 86706; 86780; 86803; 87340; 87389

== ENCOUNTER 2025-04-25 08:44 | Outpatient (REF) | payer OTHER, SELFPAY ==
--- OUTSIDE RECORDS SUMMARY | 2024-12-28 05:30 | XMS_ITS ---
Author Organization [facility] Address [address] [facility] [address] [place] [address] Care Team Providers Care Proposal Analyst Name Role Phone Sarah Canseco Primary Care Provider Daron Gonzalez [phone] REASON FOR VISIT colon screening Encounters Encounter Location Date Provider Diagnosis [facility] Out[facility] [address] [place] [phone] 12/28/2024 Daron Veliz Plan Of Treatment Next Appt Details Provider Name:Daron Veliz , 07/17/2025 01:20:00 PM, [address] [facility], [address], [place], [address], Progress Notes * BRUNILDA ELIASALEJANDROOB:1950 (75 yo M)Acc No.[id number]:12/28/2024 COLON WITH MAC Patient: ELLE BELTRAN Provider: Elo Veliz MD :1950 A ge:74 Y S ex:Male Date:12/28/2024 Address:[address] [place] [address] [id number] Pcp:Sarah Ziegler Subjective: * Chief Complaints: * 1 . Colon screening. * Medical History: Objective: * Vitals: Assessment: Plan: * Treatment: * * The named appointment provid er may or may not be the originator of this progress note, and it is not deemed complete until electronically signed by the appointment provider. Sign off status: Pending * Provider: Elo Veliz MD Date: 0 12/28/2024 Generated for [facility]/Dustin/eTransmitting on: 0 04/25/2025 09:03 AM EDT
--- NOTE | ~2025-04-25 | US_ITS ---
EXAMINATION: US ABDOMEN COMPLETE WITH LIVER ELASTOGRAPHY, US RETROPERITONEUM AORTA HISTORY: pt with low testosterone ,would like t r/o cirrhosis TECHNIQUE: Real-time grayscale ultrasound imaging of the abdomen was performed and images were reviewed. COMPARISON: Correlation is made with a retroperitoneal ultrasound dated 11/10/2023. FINDINGS: Liver: The right lobe of the liver measures 14.9 cm in size. The left lobe of the liver measures 8.3 cm in size. The liver demonstrates increased echotexture, consistent with steatosis. No focal mass or intrahepatic biliary ductal dilatation is identified. There is normal hepatopedal flow in the portal vein. Ultrasound elastography of the liver was performed with 10 separate measurements of the liver parenchyma with the patient in the supine position. Measurements were obtained approximately 2 cm below Santos's capsule and perpendicular to the capsule. The median shear wave velocity is 1.74 m/s. The interquartile range/median (IQR/median) is 0.06. Gallbladder and biliary tree: The gallbladder is unremarkable, without evidence of calculi, wall thickening, or pericholecystic fluid. There is no sonographic Vela sign. The common bile duct is mildly dilated, measuring 10 mm. Kidneys: The right kidney measures 10.1 cm in length. The left kidney measures 9.8 cm in length. There are multiple bilateral parapelvic cysts measuring up to 1.3 cm on the right and 1.0 cm on the left. There is no hydronephrosis. No calculi are identified. Pancreas: There is limited visualization of the pancreas. Spleen: The spleen is normal in size and contour, measuring 5.9 cm in length. Abdominal aorta and inferior vena cava: The visualized portions of the abdominal aorta and inferior vena cava are normal in caliber. The following measurements were obtained: The proximal abdominal aorta measures 2.5 x 2.7 cm. The mid abdominal aorta measures 2.2 x 2.2 cm. The distal abdominal aorta measures 2.4 x 2.0 cm. The right common iliac artery measures 1.3 x 1.5 cm. The left common iliac artery measures 1.3 x 1.5 cm. There is no free fluid in the abdomen. US/US abdomen comp w elastography IMPRESSION: 1. Mildly dilated common bile duct, of uncertain significance. If there is clinical concern for choledocholithiasis, MRCP could be performed. 2. Multiple bilateral renal parapelvic cysts. 3. No evidence of an abdominal aortic aneurysm. The median shear wave velocity in the liver is 1.74 m/s, corresponding to a median liver stiffness of 9.17 kPa. The IQR/median value is 0.06. This is indicative of a quality data set. Findings are indicative of a high elastography value suggestive of compensated advanced chronic liver disease. REFERENCE: Society of Radiologists in Ultrasound Liver Stiffness Thresholds (2020): LIVER STIFFNESS THRESHOLDS: *Shear wave velocity less than 1.3 m/s (Liver Stiffness equal or less than 5 kPa): High probability of being normal. *Shear wave velocity less than 1.7 m/s (Liver Stiffness less than 9 kPa): In the absence of other known clinical signs, rules out compensated advanced chronic liver disease. *Shear wave velocity between 1.7-2.1 m/s (Liver Stiffness 9-13 kPa): Suggestive of compensated advanced chronic liver disease but need further test for confirmation. *Shear wave velocity between 2.1-2.4 m/s (Liver Stiffness 13-17 kPa): Rules in compensated advanced chronic liver disease. *Shear wave velocity greater than 2.4 m/s (Liver Stiffness over 17 kPa): Suggestive of clinically significant portal hypertension. QUALITY OF DATA SET: *IQR/Median value equal or less than 0.15 implies a quality data set. *IQR/Median value over 0.15 implies a poor quality data set. SIGNIFICANT CHANGE FROM PRIOR EXAM: Significant change if liver stiffness measurement is 10% or greater from prior exam. OTHER CONSIDERATIONS: The stage of liver fibrosis may be overestimated in the setting of acute hepatitis, liver inflammation, elevated liver function tests, hepatic vascular congestion, obstructive cholestasis, non-fasting state, and infiltrative diseases such as amyloidosis and lymphoma. In some patients with NAFLD, the liver stiffness thresholds for compensated advanced chronic liver disease may be lower. In causes other than viral hepatitis and NAFLD, liver stiffness thresholds are not well established. Electronically signed by: Daron Summers MD 04/25/2025 10:11 AM EDT
--- OUTSIDE RECORDS SUMMARY | 2025-04-25 09:04 | XMS_ITS | Clinical Summary ---
Author Organization [facility] [address] [facility] Address [address] [place] [address] Phone Care Team Providers Care Computer Installation Engineer Name Role Phone Dakotah Wiley MD Primary Care Provider [phone] Allergies No known active allergies Medications No known medications Active Problems No known active problems Encounters Date Type Department Care Team Description 02/13/2025 9:58 AM EDT - 02/13/2025 2:[address] [facility] [address] [place] [address] Chest pain, unspecified type (Primary [...] Signed Date: 02/13/2025 14:10 ET Workstation ID: [id number] Transcribed By: Self Edit Transcribed Date: 02/13/2025 [...] Signed Date: 02/13/2025 14:10 ET Workstation ID: [id number] Transcribed By: Self Edit Transcribed Date: 02/13/2025 [...] GEMUSE QTc 443 ms GEMUSE P Wave [place] 70 degrees GEMUSE R Halse[place] 40 degrees GEMUSE T [place]alse[place] 53 degrees GEMUSE ECG Interpretation Sinus bradycardia [...] and culture (02/13/2025 12:06 PM EDT) Pathologist [facility] Specific [place] Urine 1.012 1.003 - 1.030 LAB URINALYSIS - AUTOMATED METHOD 02/13/2025 1:12 PM [facility] pH, Urine 8.0 5.0 - 8.0 pH LAB URINALYSIS - AUTOMATED METHOD 02/13/2025 1:12 PM [facility] Leukocytes, Urine Negative Negative LAB URINALYSIS - AUTOMATED METHOD 02/13/2025 1:12 PM [facility] Nitrite, Urine Negative Negative LAB URINALYSIS - AUTOMATED METHOD 02/13/2025 1:12 PM [facility] Protein, Urine 100(A) <=Trace mg/dL LAB URINALYSIS - AUTOMATED METHOD 02/13/2025 1:12 PM [facility] Glucose, Urine 250(A) Negative mg/dL LAB URINALYSIS - AUTOMATED METHOD 02/13/2025 1:12 PM [facility] Ketones, Urine Trace(A) Negative mg/dL LAB URINALYSIS - AUTOMATED METHOD 02/13/2025 1:12 PM [facility] Urobilinogen , Urine 0.2 0.2 - 1.0 mg/dL LAB URINALYSIS - AUTOMATED METHOD 02/13/2025 1:12 PM [facility] Bilirubin, Urine Negative Negative LAB URINALYSIS - AUTOMATED METHOD 02/13/2025 1:12 PM [facility] Blood, Urine Moderate(A) Negative LAB URINALYSIS - AUTOMATED METHOD 02/13/2025 1:12 PM [facility] RBC, Urine 48.7(H) 0 - 4 /HPF LAB URINALYSIS - AUTOMATED METHOD 02/13/2025 1:12 PM [facility] WBC, Urine 0.4 0 - 4 /HPF LAB URINALYSIS - AUTOMATED METHOD 02/13/2025 1:12 PM [facility] Squamous Epithelial, Urine 6 0 - 60 /LPF LAB URINALYSIS - AUTOMATED METHOD 02/13/2025 1:12 PM EDT [facility] Bacteria, Urine Negative Negative /HPF LAB URINALYSIS - AUTOMATED METHOD 02/13/2025 1:12 PM EDT [facility] Hyaline Casts, Urine 0.0 0 - 3 /LPF LAB URINALYSIS - AUTOMATED METHOD 02/13/2025 1:12 PM EDT [facility] Urine Urine specimen obtained by clean catch procedure / Unknown Non-blood Collection / Unknown 02/13/2025 12:06 PM EDT 02/13/2025 1:02 PM EDT Raiza CABAN LAB URINE ORDERABLES Final Result Performing Organization Address [facility]/ZIP Co de Phone Number [facility] [address] [place] [address], [place] [phone] * Mojica urine culture tube (02/13/2025 12:06 PM EDT) [facility] Extra Tube Hold for add-ons. 02/13/2025 3:02 PM EDT [facility] Comment:Auto resulted. Urine Urine specimen obtained by clean catch procedure / Unknown Non-blood Collection / Unknown 02/13/2025 12:06 PM EDT 02/13/2025 1:02 PM EDT Raiza CABAN LAB URINE ORDERABLES Final Result [facility] [address] [place] [address], [place] [phone] * Troponin I high sensitivity (02/13/2025 10:27 AM EDT) [facility] High Sensitivity Troponin I 16 <=79 ng/L LAB CHEMISTRY METHOD 02/13/2025 11:16 AM EDT [facility] Blood Venous blood specimen / Unknown Venipuncture / Unknown 02/13/2025 10:27 AM EDT 02/13/2025 10:45 AM EDT Narrative [facility] - 02/13/2025 11:16 AM EDT High levels of biotin in samples may falsely decrease hsTroponin values. Use caution when interpreting hsTroponin results in patients taking biotin who exhibit renal impairment (eGFR <60) or in patients taking more than 20 mg/day of biotin. us Neville Gupta MD LAB BLOOD ORDERABLES Final Resu lt [facility] [address] [place] [address], * (ABNORMAL) CBC auto differential (02/13/2025 10:27 AM EDT) WBC 16.3(H) 4.8 - 10.8 K/mcL LAB HEMETOLOGY METHOD 02/13[facility]2025 10:[facility] RBC 4.30(L) 4.50 - 5.50 M/mcL LAB HEMETOLOGY METHOD 02/13/2025 10:55 AM EDT [facility] Hemoglobin 12.2(L) 13.5 - 17.5 g/dL LAB HEMETOLOGY METHOD 02/13/2025 10:55 AM [facility] Hematocrit 35.4(L) 42.0 - 54.0 % LAB HEMETOLOGY METHOD 02/13/2025 10:55 AM EDT [facility] MCV 81.6 79.0 - 98.0 FL LAB HEMETOLOGY METHOD 02/13/2025 10:55 AM EDT [facility] MCH 28.1 27.0 - 32.0 pcg LAB HEMETOLOGY METHOD 02/13/2025 10:55 AM [facility] MCHC 34.5 32.0 - 37.0 g/dL LAB HEMETOLOGY METHOD 02/13/2025 10:55 AM [facility] RDW 13.6 11.0 - 15.0 % LAB HEMETOLOGY METHOD 02/13/2025 10:55 AM [facility] Platelets 255 130 - 400 K/[facility] LAB HEMETOLOGY METHOD 02/13/2025 10:55 AM [facility] MPV 10.2 7.0 - 11.0 FL LAB HEMETOLOGY METHOD 02/13/2025 10:55 AM [facility] NRBC 0.0 <1.0 % LAB HEMETOLOGY METHOD 02/13/2025 10:55 AM [facility] NRBC Absolute 0.00 <0.10 K/[facility] LAB HEMETOLOGY METHOD 02/13/2025 10:55 AM [facility] Neutrophils Relative 92.1 % LAB HEMETOLOGY METHOD 02/13/2025 10:55 AM [facility] Lymphocytes Relative 3.8 % LAB HEMETOLOGY METHOD 02/13/2025 10:55 AM [facility] Monocytes Relative 3.4 % LAB HEMETOLOGY METHOD 02/13/2025 10:55 AM [facility] Eosinophils Relative 0.0 % LAB HEMETOLOGY METHOD 02/13/2025 10:55 AM [facility] Basophils Relative 0.1 % LAB HEMETOLOGY METHOD 02/13/2025 10:55 AM [facility] Immature Granulocytes Relative 0.6 % LAB HEMETOLOGY METHOD 02/13/2025 10:55 AM [facility] Neutrophils Absolute 15.02(H) 1.50 - 7.00 K/[facility] LAB HEMETOLOGY METHOD 02/13/2025 10:55 AM [facility] Lymphocytes Absolute 0.62(L) 1.00 - 5.00 K/[facility] LAB HEMETOLOGY METHOD 02/13/2025 10:55 AM EDT [facility] Monocytes Absolute 0.56 0.20 - 1.00 K/[facility] LAB HEMETOLOGY METHOD 02/13/2025 10:55 AM EDT [facility] Eosinophils Absolute 0.00 0.00 - 0.50 K/[facility] LAB HEMETOLOGY METHOD 02/13/2025 10:55 AM EDT [facility] Basophils Absolute 0.02 0.00 - 0.20 K/[facility] LAB HEMETOLOGY METHOD 02/13/2025 10:55 AM EDT [facility] Immature Granulocytes Absolute 0.09(H) 0.00 - 0.03 K/[facility] LAB HEMETOLOGY METHOD 02/13/2025 10:55 AM EDT [facility] Blood Venous blood specimen / Unknown Venipuncture / Unknown 02/13/2025 10:27 AM EDT 02/13/2025 10:45 AM EDT us Neville Gupta MD LAB BLOOD ORDERABLES Final Resu lt Performing Organization Address City/[facility]/ZIP Co de Phone Number [facility] [address] [place] [address], [place] [phone] * (ABNORMAL) B-type natriuretic peptide (02/13/2025 10:27 AM EDT) BNP 106(H) <=100 pcg/mL LAB CHEMISTRY METHOD 02/13/2025 11:22 AM EDT [facility] Blood Venous blood specimen / Unknown Venipuncture / Unknown 02/13/2025 10:27 AM EDT 02/13/2025 10:45 AM EDT us Neville Gupta MD LAB BLOOD ORDERABLES Final Resu lt [facility] [address] [place] [address], [place] [phone] * (ABNORMAL) Magnesium (02/13/2025 10:27 AM EDT) Pathologist [facility] Magnesium 1.7(L) 1.9 - 2.6 mg/dL LAB CHEMISTRY METHOD 02/13/2025 11:23 AM EDT [facility] Blood Venous blood specimen / Unknown Venipuncture / Unknown 02/13/2025 10:27 AM EDT 02/13/2025 10:45 AM EDT us Neville Gupta MD LAB BLOOD ORDERABLES Final Resu lt Performing Organization Address City/[facility]/ZIP Co de Phone Number [facility] [address] [place] [address], [place] [phone] * Lipase (02/13/2025 10:27 AM EDT) [facility] Lipase 19 13 - 75 unit/L LAB CHEMISTRY METHOD 02/13/2025 11:23 AM EDT [facility] Blood Venous blood specimen / Unknown Venipuncture / Unknown 02/13/2025 10:27 AM EDT 02/13/2025 10:45 AM EDT us Neville Gupta MD LAB BLOOD ORDERABLES Final Resu lt Performing Organization Address City/[facility]/ZIP Co de Phone Number [facility] [address] [place] [address], [place] [phone] * (ABNORMAL) Comprehensive metabolic panel (02/13/2025 10:27 AM EDT) [facility] Sodium 134 133 - 145 mmol/L LAB CHEMISTRY METHOD 02/13/2025 11:23 AM EDT [facility] Potassium 3.5 3.5 - 5.5 mmol/L LAB CHEMISTRY METHOD 02/13/2025 11:23 AM EDT [facility] Chloride 103 96 - 110 mmol/L LAB CHEMISTRY METHOD 02/13/2025 11:23 AM [facility] CO2 21 21 - 32 mmol/L LAB CHEMISTRY METHOD 02/13/2025 11:23 AM [facility] Anion Gap 10 3 - 11 LAB CHEMISTRY METHOD 02/13/2025 11:23 AM [facility] Glucose 170(H) 70 - 100 mg/dL LAB CHEMISTRY METHOD 02/13/2025 11:23 AM [facility] BUN 16 5 - 25 mg/dL LAB CHEMISTRY METHOD 02/13/2025 11:23 AM [facility] Creatinine 0.82 0.70 - 1.30 mg/dL LAB CHEMISTRY METHOD 02/13/2025 11:23 AM [facility] eGFR 92 >=60 mL/min/1. 73m2 LAB CHEMISTRY METHOD 02/13/2025 11:23 AM [facility] Comment:Calculation based on the Chronic Kidney Disease Epidemiology Collaboration (CKD-EPI) equation refit without adjustment for race. BUN/Creatinine Ratio 19.5 LAB CHEMISTRY METHOD 02/13/2025 11:23 AM [facility] Calcium 9.2 8.5 - 10.5 mg/dL LAB CHEMISTRY METHOD 02/13/2025 11:23 AM [facility] AST (SGOT) 25 10 - 42 unit/L LAB CHEMISTRY METHOD 02/13/2025 11:23 AM [facility] ALT (SGPT) 27 10 - 60 unit/L LAB CHEMISTRY METHOD 02/13/2025 11:23 AM [facility] Alkaline Phosphatase 75 42 - 121 unit/L LAB CHEMISTRY METHOD 02/13/2025 11:23 AM [facility] Total Protein 7.9 6.0 - 8.0 g/dL LAB CHEMISTRY METHOD 02/13/2025 11:23 AM [facility] Albumin 4.1 3.2 - 5.0 g/dL LAB CHEMISTRY METHOD 02/13/2025 11:23 AM EDT [facility] Total Bilirubin 0.5 0.0 - 1.4 mg/dL LAB CHEMISTRY METHOD 02/13/2025 11:23 AM EDT [facility] Blood Venous blood specimen / Unknown Venipuncture / Unknown 02/13/2025 10:27 AM EDT 02/13/2025 10:45 AM EDT us Neville Gupta MD LAB BLOOD ORDERABLES Final Resu lt [facility] ([facility] [address] [place] [address], from Last 3 Months Insurance [facility] Member Subscriber Plan / Payer (Ef fective 2015-Present) Name:Gonzales De La Torre Relation to Subscriber:Self Name:Gonzaels De La Torre Payer ID:[id number] Group ID:[id number] Type:Not on file Address: [address] [place] [address] [facility] Care Teams Computer Installation Engineer Relationship Specialty Start Date End Date Dakotah Wiley MD [address] [place] [phone] PCP - General Internal Medicine 11/02/21
== END 2025-04-25 08:45 | disposition home or self-care (01) ==
LOC: HO.US 08:44
PROVIDERS: PCP Student in an Organized Health Care Education/Training Program; Visit Provider Student in an Organized Health Care Education/Training Program
DX: E29.1 Testicular hypofunction (principal)
CPT/HCPCS: 76700; 76775; 76981

== ENCOUNTER → 2025-04-25 08:51 | Outpatient (BNV) | payer OTHER, SELFPAY | PROVIDERS: PCP Student in an Organized Health Care Education/Training Program; Visit Provider Radiology Diagnostic Radiology | DX: E29.0 Testicular hyperfunction (principal); N28.1 Cyst of kidney, acquired | CPT/HCPCS: 76700; 76775 ==

== ENCOUNTER 2025-04-30 10:18 | Outpatient (REF) | payer OTHER, SELFPAY ==
--- OUTSIDE RECORDS SUMMARY | 2024-12-28 05:30 | XMS_ITS ---
Author Organization [facility] Address [address] [facility] [address] [place] [address] Care Team Providers Care Sales And Service Advisor Name Role Phone Sarah Canseco Primary Care Provider Daron Gonzalez [phone] REASON FOR VISIT colon screening Encounters Encounter Location Date Provider Diagnosis [facility] Outpatient [address] [place] [phone] 12/28/2024 Daron Veliz Plan Of Treatment Next Appt Details Provider Name:Daron Veliz , 07/17/2025 01:20:00 PM, [address] [facility], [address], [place], [address], Progress Notes * BRUNILDA ELIASALEJANDROOB:1950 (75 yo M)Acc No.[id number]:12/28/2024 COLON WITH MAC Patient: ELLE BELTRAN Provider: Elo Veliz MD :1950 A ge:74 Y S ex:Male Date:12/28/2024 Address:[address] [place] [address] [id number] Pcp:Sarah Ziegler Subjective: * Chief Complaints: * [...] 12/28/2024 Generated for [facility]/Dustin/eTransmitting on: 0 04/30/2025 11:20 AM EDT
--- NOTE | ~2025-04-30 | US_ITS ---
CLINICAL HISTORY: N28.1 - Cyst of kidney, acquired - micro hematuria US Urinary Bladder Comparison: None Findings: The urinary bladder is unremarkable. Prevoid volume: 165 mLPostvoid volume: 3 mL The right ureteral jet is visualized. Prostate volume: 14 mL. IMPRESSION: Normal urinary bladder. No significant postvoid residual. This document has been electronically signed by: César Mario MD on 04/30/2025 12:53:20
--- OUTSIDE RECORDS SUMMARY | 2025-04-30 11:20 | XMS_ITS | Clinical Summary ---
Author Organization [facility] [address] [facility] Address [address] [place] [address] Phone Care Team Providers Care Soccer Ball Assembler Name Role Phone Dakotah Wiley MD Primary Care Provider [phone] Allergies No known active allergies Medications No known medications Active Problems No known active problems Encounters Date Type Department Care Team Description 02/13/2025 9:58 AM EDT - 02/13/2025 2:[address] [facility] Emergency [address] [place] [address] Chest pain, unspecified type (Primary [...] Signed Date: 02/13/2025 14:10 ET Workstation ID: [id number] Transcribed By: Self Edit Transcribed Date: 02/13/2025 [...] Signed Date: 02/13/2025 14:10 ET Workstation ID: [id number] Transcribed By: Self Edit Transcribed Date: 02/13/2025 [...] GEMUSE QTc 443 ms GEMUSE P Wave [place] 70 degrees GEMUSE R [place] 40 degrees GEMUSE T [place] 53 degrees GEMUSE ECG Interpretation Sinus bradycardia [...] and culture (02/13/2025 12:06 PM EDT) Pathologist [facility] Specific [place] Urine 1.012 1.003 - 1.030 LAB URINALYSIS - AUTOMATED METHOD 02/13/2025 1:12 PM [facility] pH, Urine 8.0 5.0 - 8.0 pH LAB URINALYSIS - AUTOMATED METHOD 02/13/2025 1:12 PM [facility] Leukocytes, Urine Negative Negative LAB URINALYSIS - AUTOMATED METHOD 02/13/2025 1:12 PM [facility] Nitrite, Urine Negative Negative LAB URINALYSIS - AUTOMATED METHOD 02/13/2025 1:12 PM [facility] Protein, Urine 100(A) <=Trace mg/dL LAB URINALYSIS - AUTOMATED METHOD 02/13/2025 1:12 PM [facility] Glucose, Urine 250(A) Negative mg/dL LAB URINALYSIS - AUTOMATED METHOD 02/13/2025 1:12 PM [facility] Ketones, Urine Trace(A) Negative mg/dL LAB URINALYSIS - AUTOMATED METHOD 02/13/2025 1:12 PM [facility] Urobilinogen , Urine 0.2 0.2 - 1.0 mg/dL LAB URINALYSIS - AUTOMATED METHOD 02/13/2025 1:12 PM [facility] Bilirubin, Urine Negative Negative LAB URINALYSIS - AUTOMATED METHOD 02/13/2025 1:12 PM [facility] Blood, Urine Moderate(A) Negative LAB URINALYSIS - AUTOMATED METHOD 02/13/2025 1:12 PM [facility] RBC, Urine 48.7(H) 0 - 4 /HPF LAB URINALYSIS - AUTOMATED METHOD 02/13/2025 1:12 PM [facility] WBC, Urine 0.4 0 - 4 /HPF LAB URINALYSIS - AUTOMATED METHOD 02/13/2025 1:12 PM [facility] Squamous Epithelial, Urine 6 0 - 60 /LPF LAB URINALYSIS - AUTOMATED METHOD 02/13/2025 1:12 PM EDT [facility] Bacteria, Urine Negative Negative /HPF LAB URINALYSIS - AUTOMATED METHOD 02/13/2025 1:12 PM EDT [facility] Hyaline Casts, Urine 0.0 0 - 3 /LPF LAB URINALYSIS - AUTOMATED METHOD 02/13/2025 1:12 PM EDT [facility] Urine Urine specimen obtained by clean catch procedure / Unknown Non-blood Collection / Unknown 02/13/2025 12:06 PM EDT 02/13/2025 1:02 PM EDT Raiza CABAN LAB URINE ORDERABLES Final Result Performing Organization Address [facility]/ZIP Co de Phone Number [facility] [address] [place] [address], [place] [phone] * Mojica urine culture tube (02/13/2025 12:06 PM EDT) [facility] Extra Tube Hold for add-ons. 02/13/2025 3:02 PM EDT [facility] Comment:Auto resulted. Urine Urine specimen obtained by clean catch procedure / Unknown Non-blood Collection / Unknown 02/13/2025 12:06 PM EDT 02/13/2025 1:02 PM EDT Raiza CABAN LAB URINE ORDERABLES Final Result [facility] [address] [place] [address], [place] [phone] * Troponin I high sensitivity (02/13/2025 10:27 AM EDT) [facility] High Sensitivity Troponin I 16 <=79 ng/L LAB CHEMISTRY METHOD 02/13/2025 11:16 AM EDT [facility] Blood Venous blood specimen / Unknown Venipuncture / Unknown 02/13/2025 10:27 AM EDT 02/13/2025 10:45 AM EDT Narrative [facility] - 02/13/2025 11:16 AM EDT High levels of biotin in samples may falsely decrease hsTroponin values. Use caution when interpreting hsTroponin results in patients taking biotin who exhibit renal impairment (eGFR <60) or in patients taking more than 20 mg/day of biotin. us Neville Gupta MD LAB BLOOD ORDERABLES Final Resu lt [facility] [address] [place] [address], * (ABNORMAL) CBC auto differential (02/13/2025 10:27 AM EDT) WBC 16.3(H) 4.8 - 10.8 K/mcL LAB HEMETOLOGY [facility] RBC 4.30(L) 4.50 - 5.50 M/mcL LAB HEMETOLOGY METHOD 02/13/2025 10:55 AM EDT [facility] Hemoglobin 12.2(L) 13.5 - 17.5 g/dL LAB HEMETOLOGY METHOD 02/13/2025 10:55 AM [facility] Hematocrit 35.4(L) 42.0 - 54.0 % LAB HEMETOLOGY METHOD 02/13/2025 10:55 AM EDT [facility] MCV 81.6 79.0 - 98.0 FL LAB HEMETOLOGY METHOD 02/13/2025 10:55 AM EDT [facility] MCH 28.1 27.0 - 32.0 pcg LAB HEMETOLOGY METHOD 02/13/2025 10:55 AM [facility] MCHC 34.5 32.0 - 37.0 g/dL LAB HEMETOLOGY METHOD 02/13/2025 10:55 AM [facility] RDW 13.6 11.0 - 15.0 % LAB HEMETOLOGY METHOD 02/13/2025 10:55 AM [facility] Platelets 255 130 - 400 K/[facility] LAB HEMETOLOGY METHOD 02/13/2025 10:55 AM [facility] MPV 10.2 7.0 - 11.0 FL LAB HEMETOLOGY METHOD 02/13/2025 10:55 AM [facility] NRBC 0.0 <1.0 % LAB HEMETOLOGY METHOD 02/13/2025 10:55 AM [facility] NRBC Absolute 0.00 <0.10 K/[facility] LAB HEMETOLOGY METHOD 02/13/2025 10:55 AM [facility] Neutrophils Relative 92.1 % LAB HEMETOLOGY METHOD 02/13/2025 10:55 AM [facility] Lymphocytes Relative 3.8 % LAB HEMETOLOGY METHOD 02/13/2025 10:55 AM [facility] Monocytes Relative 3.4 % LAB HEMETOLOGY METHOD 02/13/2025 10:55 AM [facility] Eosinophils Relative 0.0 % LAB HEMETOLOGY METHOD 02/13/2025 10:55 AM [facility] Basophils Relative 0.1 % LAB HEMETOLOGY METHOD 02/13/2025 10:55 AM [facility] Immature Granulocytes Relative 0.6 % LAB HEMETOLOGY METHOD 02/13/2025 10:55 AM [facility] Neutrophils Absolute 15.02(H) 1.50 - 7.00 K/[facility] LAB HEMETOLOGY METHOD 02/13/2025 10:55 AM [facility] Lymphocytes Absolute 0.62(L) 1.00 - 5.00 K/[facility] LAB HEMETOLOGY METHOD 02/13/2025 10:55 AM EDT [facility] Monocytes Absolute 0.56 0.20 - 1.00 K/[facility] LAB HEMETOLOGY METHOD 02/13/2025 10:55 AM EDT [facility] Eosinophils Absolute 0.00 0.00 - 0.50 K/[facility] LAB HEMETOLOGY METHOD 02/13/2025 10:55 AM EDT [facility] Basophils Absolute 0.02 0.00 - 0.20 K/[facility] LAB HEMETOLOGY METHOD 02/13/2025 10:55 AM EDT [facility] Immature Granulocytes Absolute 0.09(H) 0.00 - 0.03 K/[facility] LAB HEMETOLOGY METHOD 02/13/2025 10:55 AM EDT [facility] Blood Venous blood specimen / Unknown Venipuncture / Unknown 02/13/2025 10:27 AM EDT 02/13/2025 10:45 AM EDT us Neville Gupta MD LAB BLOOD ORDERABLES Final Resu lt Performing Organization Address City/[facility]/ZIP Co de Phone Number [facility] [address] [place] [address], [place] [phone] * (ABNORMAL) B-type natriuretic peptide (02/13/2025 10:27 AM EDT) BNP 106(H) <=100 pcg/mL LAB CHEMISTRY METHOD 02/13/2025 11:22 AM EDT [facility] Blood Venous blood specimen / Unknown Venipuncture / Unknown 02/13/2025 10:27 AM EDT 02/13/2025 10:45 AM EDT us Neville Gupta MD LAB BLOOD ORDERABLES Final Resu lt [facility] [address] [place] [address], [place] [phone] * (ABNORMAL) Magnesium (02/13/2025 10:27 AM EDT) Pathologist [facility] Magnesium 1.7(L) 1.9 - 2.6 mg/dL LAB CHEMISTRY METHOD 02/13/2025 11:23 AM EDT [facility] Blood Venous blood specimen / Unknown Venipuncture / Unknown 02/13/2025 10:27 AM EDT 02/13/2025 10:45 AM EDT us Neville Gupta MD LAB BLOOD ORDERABLES Final Resu lt Performing Organization Address City/[facility]/ZIP Co de Phone Number [facility] [address] [place] [address], [place] [phone] * Lipase (02/13/2025 10:27 AM EDT) [facility] Lipase 19 13 - 75 unit/L LAB CHEMISTRY METHOD 02/13/2025 11:23 AM EDT [facility] Blood Venous blood specimen / Unknown Venipuncture / Unknown 02/13/2025 10:27 AM EDT 02/13/2025 10:45 AM EDT us Neville Gupta MD LAB BLOOD ORDERABLES Final Resu lt Performing Organization Address City/[facility]/ZIP Co de Phone Number [facility] [address] [place] [address], [place] [phone] * (ABNORMAL) Comprehensive metabolic panel (02/13/2025 10:27 AM EDT) [facility] Sodium 134 133 - 145 mmol/L LAB CHEMISTRY METHOD 02/13/2025 11:23 AM EDT [facility] Potassium 3.5 3.5 - 5.5 mmol/L LAB CHEMISTRY METHOD 02/13/2025 11:23 AM EDT [facility] Chloride 103 96 - 110 mmol/L LAB CHEMISTRY METHOD 02/13/2025 11:23 AM [facility] CO2 21 21 - 32 mmol/L LAB CHEMISTRY METHOD 02/13/2025 11:23 AM [facility] Anion Gap 10 3 - 11 LAB CHEMISTRY METHOD 02/13/2025 11:23 AM [facility] Glucose 170(H) 70 - 100 mg/dL LAB CHEMISTRY METHOD 02/13/2025 11:23 AM [facility] BUN 16 5 - 25 mg/dL LAB CHEMISTRY METHOD 02/13/2025 11:23 AM [facility] Creatinine 0.82 0.70 - 1.30 mg/dL LAB CHEMISTRY METHOD 02/13/2025 11:23 AM [facility] eGFR 92 >=60 mL/min/1. 73m2 LAB CHEMISTRY METHOD 02/13/2025 11:23 AM [facility] Comment:Calculation based on the Chronic Kidney Disease Epidemiology Collaboration (CKD-EPI) equation refit without adjustment for race. BUN/Creatinine Ratio 19.5 LAB CHEMISTRY METHOD 02/13/2025 11:23 AM [facility] Calcium 9.2 8.5 - 10.5 mg/dL LAB CHEMISTRY METHOD 02/13/2025 11:23 AM [facility] AST (SGOT) 25 10 - 42 unit/L LAB CHEMISTRY METHOD 02/13/2025 11:23 AM [facility] ALT (SGPT) 27 10 - 60 unit/L LAB CHEMISTRY METHOD 02/13/2025 11:23 AM [facility] Alkaline Phosphatase 75 42 - 121 unit/L LAB CHEMISTRY METHOD 02/13/2025 11:23 AM [facility] Total Protein 7.9 6.0 - 8.0 g/dL LAB CHEMISTRY METHOD 02/13/2025 11:23 AM [facility] Albumin 4.1 3.2 - 5.0 g/dL LAB CHEMISTRY METHOD 02/13/2025 11:23 AM EDT [facility] Total Bilirubin 0.5 0.0 - 1.4 mg/dL LAB CHEMISTRY METHOD 02/13/2025 11:23 AM EDT [facility] Blood Venous blood specimen / Unknown Venipuncture / Unknown 02/13/2025 10:27 AM EDT 02/13/2025 10:45 AM EDT us Neville Gupta MD LAB BLOOD ORDERABLES Final Resu lt [facility] [address] [place] [address], from Last 3 Months Insurance [facility] Member Subscriber Plan / Payer (Ef fective 2015-Present) Name:Gnozales De La Torre Relation to Subscriber:Self Name:Gonzales De La Torre Payer ID:[id number] Group ID:[id number] Type:Not on file Address: [address] [place] [address] [facility] Care Teams Soccer Ball Assembler Relationship Specialty Start Date End Date Dakotah Wiley MD [address] [place] [phone] PCP - General Internal Medicine 11/02/21
--- OUTSIDE RECORDS SUMMARY | 2025-04-30 11:20 | XMS_ITS | Encounter Summary ---
Author Organization [employer] Address [address] [place] [address] 7t [place] [address] Care Team Providers Care Engraving Patternmaker Name Role Phone Sarah Canseco MD Primary Care Pro vider Encounter Details Date Type Department Care Team ([facility] st Contact Info) Description 04/25/2025 Results Follow-Up [facility] [address] [place], [place] [phone] Sarah Canseco MD [address] [place], [place] [phone] [facility] Social History Tobacco Use Types Packs/Day Years Used Date Smoking Tobacco: Every Day Cigarettes Passive Smoke Exposure: Current Smokeless Tobacco: Never Comments:Started smoking tob acco 19 years of age until now 4-5 from 10 -12 a day ---PQT mike 23 a year if mike in average 8 cig a day ,smoking for 55 years Alcohol Use Standard Drinks/Week Comments Not Currently 0 (1 standard drink = 0.6 oz pur e alcohol) Depression Answer Date Recorded Patient Health Questionnaire-9 Score 6 03/04/2025 Patient Health Questionnaire-9 Score 6 03/04/2025 Last PHQ-9: Questionnaire Data Not on file 0 03/04/2025 Housing Stability Answer Date Recorded What is your housing situation today? I have noel torres 02/26/[address] you li ve. Do you have problems with any of the following? None of the above 02/26/2025 Food Insecurity Answer Date Recorded Within the past 12 months, y ou worried that your food would run out before you got money to buy more: Never True 02/26/2025 Within the past 12 months,th e food you bought just didn't last and you didn't have enough money to get more: Never True 06/2025 Transportation Answer Date Recorded In the past 12 months, has l ack of transportation kept you from medical appts, meetings, work or from getting things needed for daily living? No 02/26/2025 Utilities Answer Date Recorded In the past 12 months, has t he electric, gas, oil or water company threatened to shut off services in your home? No 02/26/2025 Depression Answer Date Recorded Patient Health Questionnaire-2 Score 2 03/04/2025 Internet Access Answer Date Recorded Internet Access Q1 Yes 02/26/2025 Internet Access Q2 Not on file 02/26/2025 Sex and Gender Information Value Date Recorded Sex Assigned at Male 07/19/2022 10:16 AM EDT Legal Sex Male 10:16 AM EDT Gender Identity Male 07/19/2022 10:16 AM EDT Sexual Orientation Straight 07/19/2022 10 :16 AM EDT documented as of this encounter Miscellaneous Notes * Result Encounter Note - Sarah Ziegler MD - 04/25/2025 3:10 PM EDT Please call patient to advise to come to already scheduled apt with me to go over abnormal image Thanks documented in this encounter Plan of Treatment Upcoming Encounters Date Type Department Care Team (Late st Contact Info) Description 05/02/2025 11:15 AM EDT Office Visit [facility] [address] [place] [address] Sarah Canseco MD [address] [place] [address] documented as of this encounter Visit Diagnoses Not on filedocumented in this encounter Additional Health Concerns Assessment Noted Time PHQ-9 Depression Total Score: 6 03/04/20 25 3:19 PM EDT documented as of this encounter Care Teams Engraving Patternmaker Relationship Specialty Start Date End Date Sarah Canseco MD [address] [place] [id number] PCP - General Internal Medicine 02/18/23 documented as of this encounter
== END 2025-04-30 10:19 | disposition home or self-care (01) ==
LOC: HO.US 10:18
PROVIDERS: PCP Student in an Organized Health Care Education/Training Program; Visit Provider Nurse Practitioner Family
DX: N28.1 Cyst of kidney, acquired (principal)
CPT/HCPCS: 76857

== ENCOUNTER → 2025-04-30 10:20 | Outpatient (BNV) | payer OTHER, SELFPAY | PROVIDERS: PCP Student in an Organized Health Care Education/Training Program; Visit Provider Radiology Vascular & Interventional Radiology | DX: N28.1 Cyst of kidney, acquired (principal) | CPT/HCPCS: 76857 ==

== ENCOUNTER 2025-05-25 09:18 | Outpatient (REF) | payer OTHER, SELFPAY ==
--- OUTSIDE RECORDS SUMMARY | 2023-11-28 10:40 | XMS_ITS ---
Author Organization [facility] Address [address] [place] [address] Care Team Providers Care Lead Oracle Developer Name Role Phone Sarah Canseco Primary Care Provider Daron Gonzalez [phone] REASON FOR VISIT screening, hx polyps Encounters Encounter Location Date Provider Diagnosis [facility] [place] Outpatient [address] [place] [id number] 11/28/2023 Daron Veliz Plan Of Treatment Next Appt Details Provider Name:Daron Veliz , 07/17/2025 01:20:00 PM, [address], [address], [place], [address], Progress Notes * BRUNILDA ELIASALEJANDROOB:1950 (75 yo M)Acc No.[id number]:11/28/2023 COLON WITH MAC Patient: ELLE BELTRAN Provider: Elo Veliz MD :1950 A ge:73 Y S ex:Male Date:11/28/2023 Address:[address] [place] [address] [id number] Pcp:Sarah Ziegler Subjective: * Chief Complaints: * 1 . Screening, hx polyps. * Medical History: Objective: * Vitals: Assessment: Plan: * Treatment: * * The named appointment provid er may or may not be the originator of this progress note, and it is not deemed complete until electronically signed by the appointment provider. Sign off status: Pending * Provider: Elo Veliz MD Date: 0 11/28/2023 Generated for [employer]ust[facility]/eTransmitting on: 0 05/25/2025 09:22 AM EDT
--- OUTSIDE RECORDS SUMMARY | 2024-05-02 05:40 | XMS_ITS ---
Author Organization [facility] Address [address] [place] [address] Care Team Providers Care Corporate Legal Manager Name Role Phone Sarah Canseco Primary Care Provider Daron Gonzalez [phone] REASON FOR VISIT colon screening Encounters Encounter Location Date Provider Diagnosis [facility] [place] Outpatient [address] [place] [phone] 05/02/2024 Daron Veliz Plan Of Treatment Next Appt Details Provider Name:Daron Veliz , 07/17/2025 01:20:00 PM, [address], [address], [place], [address], Progress Notes * BRUNILDA ELIASALEJANDROOB:1950 (75 yo M)Acc No.[id number]:05/02/2024 COLON WITH MAC Patient: ELLE BELTRAN Provider: Elo Veliz MD :1950 A ge:74 Y S ex:Male Date:05/02/2024 Address:[address] [place] [address] [id number] Pcp:Sarah Ziegler Subjective: * Chief Complaints: * 1 . Colon screening. * Medical History: Objective: * Vitals: Assessment: Plan: * Treatment: * * The named appointment provid er may or may not be the originator of this progress note, and it is not deemed complete until electronically signed by the appointment provider. Sign off status: Pending * Provider: Elo Veliz MD Date: 05/02/2024 Generated for [employer]/eTransmitting on: 0 05/25/2025 09:22 AM EDT
--- OUTSIDE RECORDS SUMMARY | 2024-12-28 05:30 | XMS_ITS ---
Author Organization [facility] Address [address] [facility] [address] [place] [address] Care Team Providers Care Relay Tester Name Role Phone Sarah Canseco Primary Care Provider Daron Gonzalez [phone] REASON FOR VISIT colon screening Encounters Encounter Location Date Provider Diagnosis [facility] [place] [address] [place] [phone] 12/28/2024 Daron Veliz Plan Of Treatment Next Appt Details Provider Name:Daron Veliz , 07/17/2025 01:20:00 PM, [address] [facility], [address], [place], [address], Progress Notes * BRUNILDA ELIASALEJANDROOB:1950 (75 yo M)Acc No.[id number]:12/28/2024 COLON WITH MAC Patient: ELLE BELTRAN Provider: Elo Veliz MD :1950 A ge:74 Y S ex:Male Date:12/28/2024 Address:[address] [place] [address] [id number] Pcp:Sarah Ziegler Subjective: * Chief Complaints: * 1 . Colon screening. * Medical History: Objective: * Vitals: Assessment: Plan: * Treatment: * * The named appointment provid er may or may not be the originator of this progress note, and it is not deemed complete until electronically signed by the appointment provider. Sign off status: Pending * Provider: Elo Veliz MD Date: 12/28/2024 Generated for [facility]/Dustin/eTransmitting on: 0 05/25/2025 09:22 AM EDT
--- OUTSIDE RECORDS SUMMARY | 2025-02-12 05:10 | XMS_ITS ---
Author Organization [facility] Address [address] [place] [address] Care Team Providers Care Meteorology Faculty Member Name Role Phone Sarah Canseco Primary Care Provider Daron Gonzalez [phone] REASON FOR VISIT Patient presents today for a colon screening Encounters Encounter Location Date Provider Diagnosis [facility] [address] [place] [address] 02/12/2025 Daron Veliz Plan Of Treatment Next Appt Details Provider Name:Daron Jaime Veliz , 07/17/2025 01:20:00 PM, [address], [address], [place], [address], Progress Notes * DELMIS ELIASOB:1950 (75 yo M)Acc No.[id number]:02/12/2025 Progress Notes Patient: ELLE BELTRAN Provider: Elo Veliz MD :1950 A ge:74 Y S ex:Male Date:02/12/2025 Address:[address] [place], [place] [id number] Pcp:Sarah Ziegler Subjective: * Chief Complaints: * 1 . Patient presents today for a colon screening. * Medical History: Objective: * Vitals: Assessment: Plan: * Treatment: * * The named appointment provid er may or may not be the originator of this progress note, and it is not deemed complete until electronically signed by the appointment provider. Sign off status: Pending * Provider: Elo Veliz MD Date: 0 02/12/2025 Generated for [facility]/Dustin/Miyaitting on: 0 05/25/2025 09:23 AM EDT
--- NOTE | ~2025-05-25 | MR_ITS ---
EXAMINATION: MRCP HISTORY: CBD mild dilated ,chronic abdominal pain COMPARISON: Correlation is made with an abdominal ultrasound dated 04/25/[address] scan dated 06/05/2019. TECHNIQUE: Axial gradient echo in and out of phase T1, axial T2 and fat suppressed T2, and coronal haste T2 with fat saturation images were obtained through the abdomen. 3D MRCP Reconstructed images and thick slab imaging of the biliary tree were obtained. FINDINGS: There is mild heterogeneous loss of signal intensity within the liver on opposed phase imaging, consistent with steatosis. There is no intrahepatic biliary ductal dilatation. The gallbladder is unremarkable. The common bile duct is moderately dilated measuring up to 12 mm. No intraluminal filling defects are identified to suggest choledocholithiasis. The pancreatic duct is mildly dilated measuring up to 4 mm in diameter. The degree of dilatation of the common bile duct is similar to the prior CT scan. No stricture is identified. The spleen, pancreas, and adrenals are unremarkable without intravenous contrast material. There are multiple bilateral renal parapelvic cysts. No retroperitoneal lymphadenopathy or ascites is identified in the upper abdomen. The visualized bones demonstrate normal marrow signal intensity. MR/MR MRCP IMPRESSION: 1. Moderate dilatation of common bile duct and mild dilatation of the pancreatic duct, similar in appearance to a CT scan dated 06/05/2019. No evidence of choledocholithiasis. 2. Hepatic steatosis. Electronically signed by: Daron Summers MD 05/27/2025 07:08 AM EDT
--- NOTE | ~2025-05-25 | MR_ITS ---
EXAMINATION: MR BRAIN WITHOUT CONTRAST CLINICAL INFORMATION: Memory loss COMPARISON: November 17, 2021. TECHNIQUE: MRI of the brain was obtained using routine sequences without contrast. FINDINGS: No restricted diffusion. 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 Mojica-white matter differentiation is normal. Bilateral multifocal patchy and punctate subcortical deep white matter hyperintense T2 FLAIR signal involving centrum semiovale, arnold radiata and to a lesser extent mid juliana, the most conspicuous in the right subinsular region. Posterior cranial fossa contents demonstrated no gross gross mass effect or signal abnormality. Normal position of the cerebellar tonsils. Sellar/suprasellar region demonstrated no gross signal abnormality or masses. Flow-void signal within the main cerebral vessels is normal. Mucosal thickening, ethmoid air cells and left maxillary sinus. MR/MR head/brain wo con IMPRESSION: No acute brain abnormality. 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 Electronically signed by: Sonu Almaguer MD 05/27/2025 08:04 AM EDT
--- OUTSIDE RECORDS SUMMARY | 2025-05-25 09:22 | XMS_ITS | Clinical Summary ---
Author Organization [facility] 299 [facility] Address [address] [place] [address] Phone Care Team Providers Care Tree Deadener Name Role Phone Dakotah Wiley MD Primary Care Provider [phone] Allergies No known active allergies Medications No known medications Active Problems No known active problems Social History Tobacco Use Types Packs/Day Years [...] 08/22/2022 Social Influencers of Health Screening 08/22/2022 Depression Screening 09/19/2024 COVID-19 Vaccine ( season) 2025 08/18/2021, 12/16/2020 Influenza Vaccine (#1) 2025 , 07/01/2022, 08/18/2021, [...] Procedure Name Priority Date/Time Associated Diagnosis Comments COMPREHENSIVE METABOLIC PANEL STAT 02/13/2025 10:27 AM EDT from Last 3 Months or Most Recently Relevant to Health Maintenance Results * (ABNORMAL) Comprehensive metabolic panel (02/13/2025 10:27 AM EDT) Sodium 134 133 - 145 mmol/L LAB CHEMISTRY METHOD 02/13/2025 11:23 AM EDT [facility] Potassium 3.5 3.5 - 5.5 mmol/L LAB CHEMISTRY METHOD 02/13/2025 11:23 AM EDT [facility] Chloride 103 96 - 110 mmol/L LAB CHEMISTRY METHOD 02/13/2025 11:23 AM [facility] CO2 21 21 - 32 mmol/L LAB CHEMISTRY METHOD 02/13/2025 11:23 AM [facility] Anion Gap 10 3 - 11 LAB CHEMISTRY METHOD 02/13/2025 11:23 AM [facility] Glucose 170(H) 70 - 100 mg/dL LAB CHEMISTRY METHOD 02/13/2025 11:23 AM [facility] BUN 16 5 - 25 mg/dL LAB CHEMISTRY METHOD 02/13/2025 11:23 AM [facility] Creatinine 0.82 0.70 - 1.30 mg/dL LAB CHEMISTRY METHOD 02/13/2025 11:23 AM [facility] eGFR 92 >=60 mL/min/1. 73m2 LAB CHEMISTRY METHOD 02/13/2025 11:23 AM [facility] Comment:Calculation based on the Chronic Kidney Disease Epidemiology Collaboration (CKD-EPI) equation refit without adjustment for race. BUN/Creatinine Ratio 19.5 LAB CHEMISTRY METHOD 02/13/2025 11:23 AM [facility] Calcium 9.2 8.5 - 10.5 mg/dL LAB CHEMISTRY METHOD 02/13/2025 11:23 AM [facility] AST (SGOT) 25 10 - 42 unit/L LAB CHEMISTRY METHOD 02/13/2025 11:23 AM [facility] ALT (SGPT) 27 10 - 60 unit/L LAB CHEMISTRY METHOD 02/13/2025 11:23 AM [facility] Alkaline Phosphatase 75 42 - 121 unit/L LAB CHEMISTRY METHOD 02/13/2025 11:23 AM [facility] Total Protein 7.9 6.0 - 8.0 g/dL LAB CHEMISTRY METHOD 02/13/2025 11:23 AM [facility] Albumin 4.1 3.2 - 5.0 g/dL LAB CHEMISTRY METHOD 02/13/2025 11:23 AM EDT [facility] Total Bilirubin 0.5 0.0 - 1.4 mg/dL LAB CHEMISTRY METHOD 02/13/2025 11:23 AM EDT [facility] Blood Venous blood specimen / Unknown Venipuncture / Unknown 02/13/2025 10:27 AM EDT 02/13/2025 10:45 AM EDT us Neville Gupta MD LAB BLOOD ORDERABLES Final Resu lt [facility]) [facility] [address] [place] [address], [place] [phone] from Last 3 Months or Most Recently Relevant to Health Maintenance Insurance [facility] Member Subscriber Plan / Payer (Ef fective 2015-Present) Name:Gonzales De La Torre Relation to Subscriber:Self Name:Gonzales De La Torre Payer ID:[id number] Group ID:[id number] Type:Not on file Address: [address] [place] [phone] [facility] Care Teams Tree Deadener Relationship Specialty Start Date End Date Dakotah Wiley MD [address] [place] [phone] PCP - General Internal Medicine 11/02/21
--- OUTSIDE RECORDS SUMMARY | 2025-05-25 09:22 | XMS_ITS | Encounter Summary ---
Author Organization [employer] Address [address] [facility] 7t [place] [address] Care Team Providers Care Gaming Floor Supervisor Name Role Phone Sarah Canseco MD Primary Care Pro vider Daron Veliz MD Unavailable Encounter Details Date Type Department Care Team (Late st Contact Info) Description 04/25/2025 Results Follow-Up [facility] [address] [place], [place] [phone] Sarah Canseco MD [address] [place], [place] [phone] [place] aorta Social History Tobacco Use Types Packs/Day Years [...] Care Team (Late st Contact Info) Description 07/11/2025 1:15 PM EDT Office Visit [facility] [address] [place] [address] Sarah Canseco MD [address] [place] [address] documented as of this encounter Visit Diagnoses Not on filedocumented in this encounter Additional Health Concerns Assessment Noted Time PHQ-9 Depression Total Score: 6 03/04/20 25 3:19 PM EDT documented as of this encounter Care Teams Gaming Floor Supervisor Relationship Specialty Start Date End Date Sarah Canseco MD [address] [place] [address] PCP - General Internal Medicine 02/18/23 Daron Veliz MD [address] [place] [address] Gastroenterology 05/01/25 documented as of this encounter
--- OUTSIDE RECORDS SUMMARY | 2025-05-25 09:22 | XMS_ITS | Encounter Summary ---
Author Organization [employer] Address [address] [facility] 7t [place] [address] Care Team Providers Care Trim Sawyer Name Role Phone Sarah Canseco MD Primary Care Pro vider Daron Veliz MD Unavailable Reason for Visit * Reason Comments Med Refill Encounter Details Date Type Department Care Team ([facility] st Contact Info) Description 05/20/2025 Refill [facility] [address] [place], [place] [phone] Sarah Canseco MD [address] [place], [place] [phone] Social History Tobacco Use Types Packs/Day Years [...] Description 07/11/2025 1:15 PM EDT Office Visit [facility] [address] [place] [phone] Sarah Canseco MD [address] [place] [phone] documented as of this encounter Visit Diagnoses Not on filedocumented in this encounter Additional Health Concerns Assessment Noted Time PHQ-9 Depression Total Score: 6 03/04/20 25 3:19 PM EDT documented as of this encounter Care Teams Trim Sawyer Relationship Specialty Start Date End Date Sarah Canseco MD [address] [place] [address] PCP - General Internal Medicine 02/18/23 Daron Veliz MD [address] [place] [phone] Gastroenterology 05/01/25 documented as of this encounter
--- OUTSIDE RECORDS SUMMARY | 2025-05-25 09:22 | XMS_ITS | Encounter Summary ---
Author Organization [employer] Address [address] [facility] 7t [place] [address] Care Team Providers Care Front Desk Auxiliary Name Role Phone Sarah Canseco MD Primary Care Pro vider Daron Veliz MD Unavailable Reason for Visit * Reason Comments Med Refill Encounter Details Date Type Department Care Team ([facility] st Contact Info) Description 03/20/2024 Refill [facility] [facility]INE [address] [place], [place] [phone] Sarah Canseco MD [address] [place], [place] [phone] Social History Tobacco Use Types Packs/Day Years [...] Description 07/11/2025 1:15 PM EDT Office Visit [facility] [place] [facility]INE [address] [place] [address] Sarah Canseco MD [address] [place] [address] documented as of this encounter Visit Diagnoses Not on filedocumented in this encounter Additional Health Concerns Assessment Noted Time PHQ-9 Depression Total Score: 0 07/11/20 9:13 AM EDT documented as of this encounter Care Teams Front Desk Auxiliary Relationship Specialty Start Date End Date Sarah Canseco MD [address] [place] [address] PCP - General Internal Medicine 02/18/23 Daron Veliz MD [address] [place] [address] Gastroenterology 05/01/25 documented as of this encounter
--- OUTSIDE RECORDS SUMMARY | 2025-05-25 09:22 | XMS_ITS | Patient Health Record ---
Author Organization [facility] Address [address] [place] [address] Care Team Providers Care Automatic Glove Turner And Former Name Role Phone Sarah Canseco Primary Care Provider Daron Gonzalez [phone] Allergies No Known Allergies Reason For Referral No Information Medications Medication SIG (Take, Route, Frequency, Duration) Notes [...] one day for 1 day 09/13/2023 Active Social History Tobacco Use: Social History Observation Description Date Details (start date - stop date) Current Smoker NA - NA Tobacco Use/Smoking Question Answer Notes Patient is a current smoker How often do you smoke cigarettes? every day How many cigarettes a day do you smoke? 5 or les s Alcohol Screen Question Answer Notes Did you have a drink containing alcohol in the p ast year? No Points 0 Interpretation Negative Section Notes: Smokes 5 or 6 cigs per day; no alcohol Smokes 5 or 6 cigs per day; no alcohol Problems Problem Type SNOMED Code ICD Code Onset Dates Problem Status W/U Status Risk Notes Problem 345170139 Encounter for screening for malignant neoplasm of colon (Z12.11) Active confirmed Problem 366790248 History of adenomatous polyp of colon (Z86.010) Active confirmed Problem Screening for malignant neoplasm of rectum (684152783) Encounter for screening for malignant neoplasm of rectum (Z12.12) Active confirmed Problem 25065517 Preprocedural examination (Z01.818) Active confirmed Encounters Encounter Location Date Provider Diagnosis [facility] [address] [place] [address] 12/18/2024 Daron Veliz [facility] [address] [place] [address] 02/12/2025 Daron Veliz Plan Of Treatment Future Test Test Name Order Date COLONOSCOPY 10/14/2016 COLONOSCOPY 09/13/2023 Next Appt Details Provider Name:Daron Veliz , 07/17/2025 01:20:00 PM, [address], [address], [place], [address], Insurance Providers Payer Name Payer Address Payer Phone Subscriber Number Group Number Insured Name Patient Relationship to Insured Coverage Start Date Coverage End Date [facility] [address] [place] [address] [id number] ELLE ELIAS Self - patient is the insured Medical (General) History Medical History History ICD Code Screening Colonoscopy 27-2 009--1 small tubular adenoma, diverticulosis, internal hemorrhoids Kidney stones Denies SD,DM,CVA,Lung disease,renal dise ase Mild chronic anemia Negative screening colonoscopy in 05/2017 HTN Surgical History Surgery Date(Month/Year)
--- OUTSIDE RECORDS SUMMARY | 2025-05-25 09:23 | XMS_ITS | Encounter Summary ---
Author Organization [employer] Address [address] [place] [address] [address] [place] [address] Care Team Providers Care Executive Chairman Of The Board Name Role Phone Sarah Canseco MD Primary Care Pro vider Daron Veliz MD Unavailable Encounter Details Date Type Department Care Team (Late st Contact Info) Description 04/22/2025 Results Follow-Up [facility] [address] [place], [place] [phone] Sarah Canseco MD [address] [place], [place] [phone] POCT Glucose, POCT HGB A1C, Albumin, Random Urine W/Creatinine, Additional followed-up results: 9 Social History Tobacco Use Types Packs/Day Years [...] Encounter Note - Sarah Ziegler MD - 04/22/2025 12:43 PM EDT Please call patient to advise to come to already scheduled apt with me to go over abnormal labs Thanks documented in this encounter Plan of Treatment Upcoming Encounters Date Type Department Care Team (Late st Contact Info) Description 07/11/2025 1:15 PM EDT Office Visit [facility] [address] [place] [phone] Sarah Canseco MD [address] [place] [address] documented as of this encounter Visit Diagnoses Not on filedocumented in this encounter Additional Health Concerns Assessment Noted Time PHQ-9 Depression Total Score: 6 03/04/20 25 3:19 PM EDT documented as of this encounter Care Teams Executive Chairman Of The Board Relationship Specialty Start Date End Date Sarah Canseco MD [address] [place] [id number] PCP - General Internal Medicine 02/18/23 Daron Veliz MD [address] [place] [address] Drive [address] [place] [address] Gastroenterology 05/01/25 documented as of this encounter
--- OUTSIDE RECORDS SUMMARY | 2025-05-25 09:23 | XMS_ITS | Clinical Summary ---
Author Organization [employer] Address [address] [facility] [address] [place] [address] Care Team Providers Care Safety Consultant Name Role Phone Sarah Canseco MD Primary Care Pro vider Daron Veliz MD Unavailable Allergies No known active allergies Medications * This document contains information received from the source organization and may not represent a complete record from that organization. methadone (Dolophine) 5 MG/5ML solution Take 20 mL by mouth every 8 (eight) hours. Active docusate sodium (Colace) 100 MG capsule Take 1 tab po bid prn constipation 60 capsule 3 05/02/20 25 Active tamsulosin (Flomax) 0.4 MG 24 hr capsule TAKE 1 CAPSULE BY MOUTH EVERY DAY 30 MINUTES AFTER THE SAME MEAL 90 capsule 05/21/20 25 Active lisinopril-hy droCHLOROthia zide 20-25 MG tablet TAKE 1 TABLET BY MOUTH EVERY DAY IN THE MORNING 90 tablet 05/21/20 25 Active omeprazole (PriLOSEC) [address] capsule TAKE 1 CAPSULE BY MOUTH EVERY DAY 90 capsule 05/21/20 25 Active tamsulosin (Flomax) 0.4 MG 24 hr capsule TAKE 1 CAPSULE BY MOUTH 30 MINUTES AFTER THE SAME MEAL EVERY DAY 90 capsule 02/27/20 25 025 Discontinued lisinopril-hy droCHLOROthia zide 20-25 MG tablet Take 1 tablet by mouth in the morning. 90 tablet 02/27/20 25 025 Discontinued omeprazole (PriLOSEC) [address] capsule Take 1 capsule by mouth Once per day. 02/16/20 25 025 Discontinued magnesium oxide 250 MG tablet TAKE 1 TABLET BY MOUTH EVERY DAY 30 tablet 2 03/28/20 25 025 Discontinued(O ther) Active Problems Problem Noted Date Diagnosed Date Weight loss 05/03/2025 Cirrhosis 05/03/2025 Common bile duct dilatation 05/03/2025 Depression, unspecified 03/04/2025 Gastritis 02/27/2025 Hypomagnesemia 02/15/2025 Assessment & Plan (02/16/2025 6:08 PM EDT): Labs ordered, start on low dose mg pending lab results Poor memory 01/18/2024 Grieving 01/17/2024 Assessment & Plan (03/04/2025 3:31 PM EDT): During IBH Consult Gonzales presenting with depressed mood, irritable mood, loss of interests/pleasure , sense of isolation/loneliness , changes in sleep difficulty falling asleep, psychomotor retardation, inappropriate/excessive guilt ; for a period of 0-6 mo, for most or all symptoms in the context of . Gonzales reported his sxs are associated with the recent passing of her son. Pt relies on his family and social support. He lives alone and reports feeling safe at home. Pt has medical conditions but he is stable. Gonzales is aware of importance of embracing his emotions and taking his grieving process day by day and as the emotions come. Pt declined OP services and agree on contacting clinician for additional support. [facility] information given. Prediabetes 09/09/2023 Tobacco use 07/11/2023 Health care maintenance 07/11/2023 Abnormal tympanic membrane 07/11/2023 Essential hypertension 02/09/2019 Male hypogonadism 10/17/2018 Microscopic hematuria 10/17/2018 Opioid dependence 06/06/2012 Anemia 03/02/2012 Resolved Problems Problem Noted Date Diagnosed Date Resolved Date Blood in urine 03/02/2012 07/11/2023 Contact dermatitis 03/02/2012 Vitamin D deficiency 03/02/2012 023 Encounters * This document contains information received from the source organization and may not represent a complete record from that organization. Date Type Department Care Team Description 05/20/[address] [facility] MEDICINE [address] [place] [address] Sarah Canseco MD 05/02/2025 11:15 AM EDT Office Visit [facility] [place] [address] Sarah Canseco MD Common bile duct dilatation (Primary Dx); Memory loss; Weight loss; Essential hypertension; Health care maintenance; Depression, unspecified depression type; Poor memory; Tobacco use; Other cirrhosis of liver (CMS/HCC) 05/02/2025 Telephone [facility] [place] [address] Sarah Canseco MD Durable Medical Equipment 05/02/2025 Travel 05/01/2025 Telephone [facility] [place] [address] Sarah Canseco MD chart prep 04/25/2025 Results Follow-Up [facility] [place] [address] Sarah Canseco MD [facility] 04/25/2025 Orders Only [facility] [place] [address] Sarah Canseco MD 04/22/2025 11:30 AM EDT Clinical Support [facility] [place] [address] Sneha Welsh RN Poor memory 04/22/2025 Results Follow-Up [facility] [place] [address] Sarah Canseco MD POCT Glucose, POCT HGB A1C, Albumin, Random Urine W/Creatinine, Additional followed-up results: 9 04/22/2025 Travel 03/27/[address] [facility] [place] [address] Steph Hernandez NP 03/18/2025 Telephone [facility] [place] [address] Chen Clark, RENAY Care Coordination 03/06/2025 Travel 02/26/2025 11:15 AM EDT Office Visit [facility] [place] [address] Sarah Canseco MD Essential hypertension (Primary Dx); Prediabetes; Gastric pain; Colon cancer screening; Male hypogonadism; Tobacco use; Dietary counseling; Exercise counseling; Opioid dependence in remission (CMS/HCC); Elevated brain natriuretic peptide (BNP) level; Annual physical exam; Hypomagnesemia; Microscopic hematuria; Health care maintenance; Anemia, unspecified type; Poor memory; Gastritis without bleeding, unspecified chronicity, unspecified gastritis type 02/26/2025 Travel [address] [address] Suzanna Collins MS Chart Prep from Last 3 Months Immunizations Immunization Administration Dates Next Due Hep A, Adult 10/20/2007 Hep B, adult 10/20/2007 Influenza High-dose Quadrivalent Preservative Fr ee 07/11/2023,07/01/2022 Influenza injectable quadriv alent IIV4 with preservative 10/25/2017 Influenza injectable quadrivalent preservative f ree 08/18/2021 Influenza, IIV3, injectable 07/02/2011 Influenza, Split (incl. purified surface antigen ) 06/06/2012 [email or web address] SARS-CoV-2 Vaccination 12/16/2020 MMR 09/23/2011 Pfizer Covid-19 [...] Sign Reading Time Taken Comments Blood Pressure 134/80 05/02/2025 11:51 AM EDT Pulse 82 05/02/2025 11:51 AM EDT Temperature 36.4 C (97.5 F) 05/02/2025 11:51 AM EDT Respiratory Rate 20 05/02/2025 11:5 1 AM EDT Oxygen Saturation 99% 05/02/2025 11: 51 AM EDT Inhaled Oxygen Concentration - - Weight 60.7 kg (133 lb 12.8 oz) 025 11:51 AM EDT Height 157.5 cm (5' 2 ) 05/02/2025 11:5 1 AM EDT Body Mass Index 24.47 05/02/2025 11:51 AM EDT Plan of Treatment Upcoming Encounters Date Type Department Care Team (Late st Contact Info) Description 07/11/2025 1:15 PM EDT Office Visit [facility] MEDICINE [address] [place], [place] [phone] Sarah Canseco MD [address] [place], [place] [phone] Health Maintenance Due Date Last Done Comments Hepatitis B Vaccines (2 of 3 - Risk 3-dose series) 11/17/2007 10/20/2007 Hepatitis A Vaccines (2 of 2 - Risk 2-dose series) 04/19/2008 10/20/2007 COVID-19 Vaccine ( season) 2025 08/18/2021, 12/16/2020 Influenza Vaccine (#1) 2025 , 07/01/2022, 08/18/2021, Additional history exists SDOH Screening 02/26/2026 02/26/2025 Depression Screening 03/04/2026 03/04/2025, 03/04/20 25 Diabetes: Hemoglobin A1C 04/22/2026 025, 02/26/2025, 02/10/2024, Additional history exists Alcohol/Substance Use Screening 05/02/2026 05/02/2025 Tobacco Screening 05/02/2026 05/02/2025 Lipid Panel 04/22/2030 04/22/2025, 06/20, 04/12/2022, Additional history exists DTaP/Tdap/Td Vaccines (4 - Td or Tdap) 07/01/2032 07/01/2022, 05/27/2021, 01/25/2012, Additional history exists Colonoscopy Discontinued 05/31/2017 Colorectal Cancer Screening Discontinued Pneumococcal Vaccine: 50+ Years Completed 07/11/2023, 08/18/2021, 10/20/2009 RSV Patients and Patients Aged 60 years or older Completed 01/19/2024 Zoster Vaccines Completed 03/20/2024, 01/19/2024 Hepatitis C Screening Completed 04/22/2025, 023 CT Colonography Discontinued FIT DNA/Cologuard Discontinued FIT Discontinued FOBT Discontinued HIB Vaccines Aged Out No longer eligi [...] on patient's age to complete this topic Sigmoidoscopy Discontinued Procedures Procedure Name Priority Date/Time Associated Diagnosis Comments US BLADDER Routine 04/30/2025 12:53 PM EDT US AORTA Routine 04/25/2025 9:04 AM EDT US ABDOMEN COMPLETE WITH ELASTOGRAPHY Routine 04/25/2025 9:04 AM EDT Male hypogonadism HEPATITIS B CORE ANTIBODY (IGM) Routine 04/22/2025 10:25 AM EDT B TYPE NATRIURETIC PEPTIDE (BNP) Routine 04/22/2025 10:25 AM EDT Annual physical exam MAGNESIUM Routine 04/22/2025 10:25 AM EDT Annual physical exam VITAMIN D,25-OH,TOTAL,IA Routine 04/22/2025 10:25 AM EDT Annual physical exam VITAMIN B12/FOLATE, SERUM PANEL Routine 04/22/2025 10:25 AM EDT Annual physical exam TSH W/REFLEX TO FT4 Routine 04/22/2025 1 0:25 AM EDT Annual physical exam SYPHILIS SCREEN Routine 04/22/2025 10:25 AM EDT Annual physical exam LIPID PANEL, STANDARD Routine 04/22/2025 10:25 AM EDT Annual physical exam HIV 1/2 ANTIGEN/ANTIBODY, FOURTH GENERATION W/RFL Routine 04/22/2025 10:25 AM EDT Annual physical exam HEPATITIS C AB W/REFL TO HCV RNA, QN, PCR Routine 04/22/2025 10:25 AM EDT Annual physical exam HEPATITIS B SURFACE ANTIGEN, EIA Routine 04/22/2025 10:25 AM EDT Annual physical exam HEPATITIS B SURFACE ANTIBODY, QUALITATIVE Routine 04/22/2025 10:25 AM EDT Annual physical exam HEPATITIS B CORE AB TOTAL Routine 04/22/2025 10:25 AM EDT Annual physical exam HEMOGLOBIN A1C Routine 04/22/2025 10:25 AM EDT Annual physical exam COMPREHENSIVE METABOLIC PANEL Routine 04/22/2025 10:25 AM EDT Annual physical exam CBC Routine 04/22/2025 10:25 AM EDT Annual physical exam ALBUMIN, RANDOM URINE W/CREATININE Routine 04/22/2025 10:25 AM EDT Annual physical exam COMPREHENSIVE METABOLIC PANEL Routine 04/22/2025 10:25 AM EDT Abdominal pain, unspecified abdominal location MAGNESIUM Routine 04/22/2025 10:25 AM EDT Hypomagnesemia POCT GLYCATED HEMOGLOBIN, TOTAL Routine 02/26/2025 11:16 AM EDT Prediabetes POCT GLUCOSE Routine 02/26/2025 11:14 AM EDT Prediabetes HM COLONOSCOPY Routine 05/31/2017 from Last 3 Months or Most Recently Relevant to Health Maintenance Results * US BLADDER (04/30/2025 12:53 PM EDT) Anatomical Region Laterality Modality Abdomen Ultrasound 04/30/2025 12:5 3 PM EDT Narrative 04/30/2025 12:55 PM EDT [address] [address] Ultrasound Report Signed Patient: Gonzales De La Torre MR#: [id number] : 1950 Acct:[id number] Age/Sex: 75 / M ADM Date: 04/30/25 Loc: HO.US Attending Dr: Yohana LUNDBERG Ordering Physician: Yohana Aponte Date of Service: 04/30/25 Procedure(s): US bladder Accession Number(s): [id number] cc: Yohana Aponte; Sarah Canseco MD CLINICAL HISTORY: N28.1 - Cyst of kidney, acquired - micro hematuria US Urinary Bladder Comparison: None Findings: The urinary bladder is unremarkable. Prevoid volume: 165 mLPostvoid volume: 3 mL The right ureteral jet is visualized. Prostate volume: 14 mL. IMPRESSION: Normal urinary bladder. No significant postvoid residual. This document has been electronically signed by: César Mario MD on 04/30/2025 12:53:20 Dictated By: César Mario MD Signed By: <Electronically signed by César Mario MD in OV> 04/30/25 1254 DD/ 1253 TD/TT: 04/30/25 1253 Shipping Agent: Procedure Note Donotuseinterpreter, Image - 04/30/[address] [address] Ultrasound Report Signed Patient: Gonzales De La TorreMR#: [id number] : 1950cct:[id number] Age/Sex: 75 / MADM Date: 04/30/25 Loc: HO.US Attending Dr: Yohana LUNDBERG Ordering Physician: Yohana Aponte Date of Service: 04/30/25 Procedure(s): US bladder Accession Number(s): [id number] cc: Yohana Aponte; Sarah Canseco MD CLINICAL HISTORY: N28.1 - Cyst of kidney, acquired - micro hematuria US Urinary Bladder Comparison: None Findings: The urinary bladder is unremarkable. Prevoid volume: 165 mLPostvoid volume: 3 mL The right ureteral jet is visualized. Prostate volume: 14 mL. IMPRESSION: Normal urinary bladder. No significant postvoid residual. This document has been electronically signed by: César Mario MD on 04/30/2025 12:53:20 Dictated By: César Mario MD Signed By: <Electronically signed by César Mario MD in OV> 04/30/25 1254 DD/ 1253 TD/TT: 04/30/25 1253 Shipping Agent: us [facility] External Provider IMG US PROCEDURES Edited Result - Final * US aorta (04/25/2025 9:04 AM EDT) Anatomical Region Laterality Modality Abdomen Ultrasound 04/25/2025 9:04 AM EDT Narrative 04/25/2025 10:14 AM EDT [place] [address] Ultrasound Report Signed Patient: Gonzales De La Torre MR#: [id number] : 1950 Acct:[id number] Age/Sex: 75 / M ADM Date: 04/25/25 Loc: HO.US Attending Dr: Sarah Ziegler MD Ordering Physician: Sarah Canseco MD Date of Service: 04/25/25 Procedure(s): US aorta Accession Number(s): [id number] cc: Sarah Canseco MD EXAMINATION: US ABDOMEN COMPLETE WITH LIVER ELASTOGRAPHY, US RETROPERITONEUM AORTA HISTORY: pt with low testosterone ,would like t r/o cirrhosis TECHNIQUE: Real-time grayscale ultrasound imaging of the abdomen was performed and images were reviewed. COMPARISON: Correlation is made with a retroperitoneal ultrasound dated 11/10/2023. FINDINGS: Liver: The right lobe of the liver measures 14.9 cm in size. The left lobe of the liver measures 8.3 cm in size. The liver demonstrates increased echotexture, consistent with steatosis. No focal mass or intrahepatic biliary ductal dilatation is identified. There is normal hepatopedal flow in the portal vein. Ultrasound elastography of the liver was performed with 10 separate measurements of the liver parenchyma with the patient in the supine position. Measurements were obtained approximately 2 cm below Santos's capsule and perpendicular to the capsule. The median shear wave velocity is 1.74 m/s. The interquartile range/median (IQR/median) is 0.06. Gallbladder and biliary tree: The gallbladder is unremarkable, without evidence of calculi, wall thickening, or pericholecystic fluid. There is no sonographic Vela sign. The common bile duct is mildly dilated, measuring 10 mm. Kidneys: The right kidney measures 10.1 cm in length. The left kidney measures 9.8 cm in length. There are multiple bilateral parapelvic cysts measuring up to 1.3 cm on the right and 1.0 cm on the left. There is no hydronephrosis. No calculi are identified. Pancreas: There is limited visualization of the pancreas. Spleen: The spleen is normal in size and contour, measuring 5.9 cm in length. Abdominal aorta and inferior vena cava: The visualized portions of the abdominal aorta and inferior vena cava are normal in caliber. The following measurements were obtained: The proximal abdominal aorta measures 2.5 x 2.7 cm. The mid abdominal aorta measures 2.2 x 2.2 cm. The distal abdominal aorta measures 2.4 x 2.0 cm. The right common iliac artery measures 1.3 x 1.5 cm. The left common iliac artery measures 1.3 x 1.5 cm. There is no free fluid in the abdomen. US/US aorta IMPRESSION: 1. Mildly dilated common bile duct, of uncertain significance. If there is clinical concern for choledocholithiasis, MRCP could be performed. 2. Multiple bilateral renal parapelvic cysts. 3. No evidence of an abdominal aortic aneurysm. The median shear wave velocity in the liver is 1.74 m/s, corresponding to a median liver stiffness of 9.17 kPa. The IQR/median value is 0.06. This is indicative of a quality data set. Findings are indicative of a high elastography value suggestive of compensated advanced chronic liver disease. REFERENCE: Society of Radiologists in Ultrasound Liver Stiffness Thresholds (2019): LIVER STIFFNESS THRESHOLDS: *Shear wave velocity less than 1.3 m/s (Liver Stiffness equal or less than 5 kPa): High probability of being normal. *Shear wave velocity less than 1.7 m/s (Liver Stiffness less than 9 kPa): In the absence of other known clinical signs, rules out compensated advanced chronic liver disease. *Shear wave velocity between 1.7-2.1 m/s (Liver Stiffness 9-13 kPa): Suggestive of compensated advanced chronic liver disease but need further test for confirmation. *Shear wave velocity between 2.1-2.4 m/s (Liver Stiffness 13-17 kPa): Rules in compensated advanced chronic liver disease. *Shear wave velocity greater than 2.4 m/s (Liver Stiffness over 17 kPa): Suggestive of clinically significant portal hypertension. QUALITY OF DATA SET: *IQR/Median value equal or less than 0.15 implies a quality data set. *IQR/Median value over 0.15 implies a poor quality data set. SIGNIFICANT CHANGE FROM PRIOR EXAM: Significant change if liver stiffness measurement is 10% or greater from prior exam. OTHER CONSIDERATIONS: The stage of liver fibrosis may be overestimated in the setting of acute hepatitis, liver inflammation, elevated liver function tests, hepatic vascular congestion, obstructive cholestasis, non-fasting state, and infiltrative diseases such as amyloidosis and lymphoma. In some patients with NAFLD, the liver stiffness thresholds for compensated advanced chronic liver disease may be lower. In causes other than viral hepatitis and NAFLD, liver stiffness thresholds are not well established. Electronically signed by: Daron Summers MD 04/25/2025 10:11 AM EDT Dictated By: Daron Summers MD Signed By: <Electronically signed by Daron Summers MD in OV> 04/25/25 1011 DD/ 3 TD/TT: 04/25/25923 Shipping Agent: Procedure Note Donotuseinterpreter, Image - 04/25/[address] [address] Ultrasound Report Signed Patient: Darrell De La Torre#: [id number] : 9Acct:[id number] Age/Sex: 75 / MADM Date: 04/25/25 Loc: HO.US Attending Dr: Sarah Ziegler MD Ordering Physician: Sarah Canseco MD Date of Service: 04/25/25 Procedure(s): US aorta Accession Number(s): [id number] cc: Sarah Canseco MD EXAMINATION: US ABDOMEN COMPLETE WITH LIVER ELASTOGRAPHY, US RETROPERITONEUM AORTA HISTORY: pt with low testosterone ,would like t r/o cirrhosis TECHNIQUE: Real-time grayscale ultrasound imaging of the abdomen was performed and images were reviewed. COMPARISON: Correlation is made with a retroperitoneal ultrasound dated 11/10/2023. FINDINGS: Liver: The right lobe of the liver measures 14.9 cm in size. The left lobe of the liver measures 8.3 cm in size. The liver demonstrates increased echotexture, consistent with steatosis. No focal mass or intrahepatic biliary ductal dilatation is identified. There is normal hepatopedal flow in the portal vein. Ultrasound elastography of the liver was performed with 10 separate measurements of the liver parenchyma with the patient in the supine position. Measurements were obtained approximately 2 cm below Santos's capsule and perpendicular to the capsule. The median shear wave velocity is 1.74 m/s. The interquartile range/median (IQR/median) is 0.06. Gallbladder and biliary tree: The gallbladder is unremarkable, without evidence of calculi, wall thickening, or pericholecystic fluid. There is no sonographic Vela sign. The common bile duct is mildly dilated, measuring 10 mm. Kidneys: The right kidney measures 10.1 cm in length. The left kidney measures 9.8 cm in length. There are multiple bilateral parapelvic cysts measuring up to 1.3 cm on the right and 1.0 cm on the left. There is no hydronephrosis. No calculi are identified. Pancreas: There is limited visualization of the pancreas. Spleen: The spleen is normal in size and contour, measuring 5.9 cm in length. Abdominal aorta and inferior vena cava: The visualized portions of the abdominal aorta and inferior vena cava are normal in caliber. The following measurements were obtained: The proximal abdominal aorta measures 2.5 x 2.7 cm. The mid abdominal aorta measures 2.2 x 2.2 cm. The distal abdominal aorta measures 2.4 x 2.0 cm. The right common iliac artery measures 1.3 x 1.5 cm. The left common iliac artery measures 1.3 x 1.5 cm. There is no free fluid in the abdomen. US/US aorta IMPRESSION: 1. Mildly dilated common bile duct, of uncertain significance. If there is clinical concern for choledocholithiasis, MRCP could be performed. 2. Multiple bilateral renal parapelvic cysts. 3. No evidence of an abdominal aortic aneurysm. The median shear wave velocity in the liver is 1.74 m/s, corresponding to a median liver stiffness of 9.17 kPa. The IQR/median value is 0.06. This is indicative of a quality data set. Findings are indicative of a high elastography value suggestive of compensated advanced chronic liver disease. REFERENCE: Society of Radiologists in Ultrasound Liver Stiffness Thresholds (2019): LIVER STIFFNESS THRESHOLDS: *Shear wave velocity less than 1.3 m/s (Liver Stiffness equal or less than 5 kPa): High probability of being normal. *Shear wave velocity less than 1.7 m/s (Liver Stiffness less than 9 kPa): In the absence of other known clinical signs, rules out compensated advanced chronic liver disease. *Shear wave velocity between 1.7-2.1 m/s (Liver Stiffness 9-13 kPa): Suggestive of compensated advanced chronic liver disease but need further test for confirmation. *Shear wave velocity between 2.1-2.4 m/s (Liver Stiffness 13-17 kPa): Rules in compensated advanced chronic liver disease. *Shear wave velocity greater than 2.4 m/s (Liver Stiffness over 17 kPa): Suggestive of clinically significant portal hypertension. QUALITY OF DATA SET: *IQR/Median value equal or less than 0.15 implies a quality data set. *IQR/Median value over 0.15 implies a poor quality data set. SIGNIFICANT CHANGE FROM PRIOR EXAM: Significant change if liver stiffness measurement is 10% or greater from prior exam. OTHER CONSIDERATIONS: The stage of liver fibrosis may be overestimated in the setting of acute hepatitis, liver inflammation, elevated liver function tests, hepatic vascular congestion, obstructive cholestasis, non-fasting state, and infiltrative diseases such as amyloidosis and lymphoma. In some patients with NAFLD, the liver stiffness thresholds for compensated advanced chronic liver disease may be lower. In causes other than viral hepatitis and NAFLD, liver stiffness thresholds are not well established. Electronically signed by: Daron Summers MD 04/25/2025 10:11 AM EDT Dictated By: Daron Summers MD Signed By: <Electronically signed by Daron Summers MD in OV> 04/25/25 1011 DD/ 0904 TD/TT: 04/25/25 0924 Shipping Agent: us Sarah Ziegler MD IMG US PROCEDURES Final Result * US Abdomen Comp w elastography (04/25/2025 9:04 AM EDT) Anatomical Region Laterality Modality Abdomen Ultrasound 04/25/2025 9:04 AM EDT Narrative 04/25/2025 10:14 AM EDT [place] [address] Ultrasound Report Signed Patient: Gonzales De La Torre MR#: [id number] : 1950 Acct:[id number] Age/Sex: 75 / M ADM Date: 04/25/25 Loc: HO.US Attending Dr: Sarah Ziegler MD Ordering Physician: Sarah Canseco MD Date of Service: 04/25/25 Procedure(s): US abdomen comp w elastography Accession Number(s): [id number] cc: Sarah Canseco MD EXAMINATION: US ABDOMEN COMPLETE WITH LIVER ELASTOGRAPHY, US RETROPERITONEUM AORTA HISTORY: pt with low testosterone ,would like t r/o cirrhosis TECHNIQUE: Real-time grayscale ultrasound imaging of the abdomen was performed and images were reviewed. COMPARISON: Correlation is made with a retroperitoneal ultrasound dated 11/10/2023. FINDINGS: Liver: The right lobe of the liver measures 14.9 cm in size. The left lobe of the liver measures 8.3 cm in size. The liver demonstrates increased echotexture, consistent with steatosis. No focal mass or intrahepatic biliary ductal dilatation is identified. There is normal hepatopedal flow in the portal vein. Ultrasound elastography of the liver was performed with 10 separate measurements of the liver parenchyma with the patient in the supine position. Measurements were obtained approximately 2 cm below Santos's capsule and perpendicular to the capsule. The median shear wave velocity is 1.74 m/s. The interquartile range/median (IQR/median) is 0.06. Gallbladder and biliary tree: The gallbladder is unremarkable, without evidence of calculi, wall thickening, or pericholecystic fluid. There is no sonographic Vela sign. The common bile duct is mildly dilated, measuring 10 mm. Kidneys: The right kidney measures 10.1 cm in length. The left kidney measures 9.8 cm in length. There are multiple bilateral parapelvic cysts measuring up to 1.3 cm on the right and 1.0 cm on the left. There is no hydronephrosis. No calculi are identified. Pancreas: There is limited visualization of the pancreas. Spleen: The spleen is normal in size and contour, measuring 5.9 cm in length. Abdominal aorta and inferior vena cava: The visualized portions of the abdominal aorta and inferior vena cava are normal in caliber. The following measurements were obtained: The proximal abdominal aorta measures 2.5 x 2.7 cm. The mid abdominal aorta measures 2.2 x 2.2 cm. The distal abdominal aorta measures 2.4 x 2.0 cm. The right common iliac artery measures 1.3 x 1.5 cm. The left common iliac artery measures 1.3 x 1.5 cm. There is no free fluid in the abdomen. US/US abdomen comp w elastography IMPRESSION: 1. Mildly dilated common bile duct, of uncertain significance. If there is clinical concern for choledocholithiasis, MRCP could be performed. 2. Multiple bilateral renal parapelvic cysts. 3. No evidence of an abdominal aortic aneurysm. The median shear wave velocity in the liver is 1.74 m/s, corresponding to a median liver stiffness of 9.17 kPa. The IQR/median value is 0.06. This is indicative of a quality data set. Findings are indicative of a high elastography value suggestive of compensated advanced chronic liver disease. REFERENCE: Society of Radiologists in Ultrasound Liver Stiffness Thresholds (2019): LIVER STIFFNESS THRESHOLDS: *Shear wave velocity less than 1.3 m/s (Liver Stiffness equal or less than 5 kPa): High probability of being normal. *Shear wave velocity less than 1.7 m/s (Liver Stiffness less than 9 kPa): In the absence of other known clinical signs, rules out compensated advanced chronic liver disease. *Shear wave velocity between 1.7-2.1 m/s (Liver Stiffness 9-13 kPa): Suggestive of compensated advanced chronic liver disease but need further test for confirmation. *Shear wave velocity between 2.1-2.4 m/s (Liver Stiffness 13-17 kPa): Rules in compensated advanced chronic liver disease. *Shear wave velocity greater than 2.4 m/s (Liver Stiffness over 17 kPa): Suggestive of clinically significant portal hypertension. QUALITY OF DATA SET: *IQR/Median value equal or less than 0.15 implies a quality data set. *IQR/Median value over 0.15 implies a poor quality data set. SIGNIFICANT CHANGE FROM PRIOR EXAM: Significant change if liver stiffness measurement is 10% or greater from prior exam. OTHER CONSIDERATIONS: The stage of liver fibrosis may be overestimated in the setting of acute hepatitis, liver inflammation, elevated liver function tests, hepatic vascular congestion, obstructive cholestasis, non-fasting state, and infiltrative diseases such as amyloidosis and lymphoma. In some patients with NAFLD, the liver stiffness thresholds for compensated advanced chronic liver disease may be lower. In causes other than viral hepatitis and NAFLD, liver stiffness thresholds are not well established. Electronically signed by: Daron Summers MD 04/25/2025 10:11 AM EDT RP Dictated By: Daron Summers MD Signed By: <Electronically signed by Daron Summers MD in OV> 04/25/25 1011 DD/ 0904 TD/TT: 04/25/25 0924 Shipping Agent: Procedure Note Donotuseinterpreter, Image - 04/25/[address] [address] Ultrasound Report Signed Patient: Gonzales De La TorreMR#: [id number] : 9Acct:[id number] Age/Sex: 75 / MADM Date: 04/25/25 Loc: HO.US Attending Dr: Sarah Ziegler MD Ordering Physician: Sarah Canseco MD Date of Service: 04/25/25 Procedure(s): US abdomen comp w elastography Accession Number(s): [id number] cc: Sarah Canseco MD EXAMINATION: US ABDOMEN COMPLETE WITH LIVER ELASTOGRAPHY, US RETROPERITONEUM AORTA HISTORY: pt with low testosterone ,would like t r/o cirrhosis TECHNIQUE: Real-time grayscale ultrasound imaging of the abdomen was performed and images were reviewed. COMPARISON: Correlation is made with a retroperitoneal ultrasound dated 11/10/2023. FINDINGS: Liver: The right lobe of the liver measures 14.9 cm in size. The left lobe of the liver measures 8.3 cm in size. The liver demonstrates increased echotexture, consistent with steatosis. No focal mass or intrahepatic biliary ductal dilatation is identified. There is normal hepatopedal flow in the portal vein. Ultrasound elastography of the liver was performed with 10 separate measurements of the liver parenchyma with the patient in the supine position. Measurements were obtained approximately 2 cm below Santos's capsule and perpendicular to the capsule. The median shear wave velocity is 1.74 m/s. The interquartile range/median (IQR/median) is 0.06. Gallbladder and biliary tree: The gallbladder is unremarkable, without evidence of calculi, wall thickening, or pericholecystic fluid. There is no sonographic Vela sign. The common bile duct is mildly dilated, measuring 10 mm. Kidneys: The right kidney measures 10.1 cm in length. The left kidney measures 9.8 cm in length. There are multiple bilateral parapelvic cysts measuring up to 1.3 cm on the right and 1.0 cm on the left. There is no hydronephrosis. No calculi are identified. Pancreas: There is limited visualization of the pancreas. Spleen: The spleen is normal in size and contour, measuring 5.9 cm in length. Abdominal aorta and inferior vena cava: The visualized portions of the abdominal aorta and inferior vena cava are normal in caliber. The following measurements were obtained: The proximal abdominal aorta measures 2.5 x 2.7 cm. The mid abdominal aorta measures 2.2 x 2.2 cm. The distal abdominal aorta measures 2.4 x 2.0 cm. The right common iliac artery measures 1.3 x 1.5 cm. The left common iliac artery measures 1.3 x 1.5 cm. There is no free fluid in the abdomen. US/US abdomen comp w elastography IMPRESSION: 1. Mildly dilated common bile duct, of uncertain significance. If there is clinical concern for choledocholithiasis, MRCP could be performed. 2. Multiple bilateral renal parapelvic cysts. 3. No evidence of an abdominal aortic aneurysm. The median shear wave velocity in the liver is 1.74 m/s, corresponding to a median liver stiffness of 9.17 kPa. The IQR/median value is 0.06. This is indicative of a quality data set. Findings are indicative of a high elastography value suggestive of compensated advanced chronic liver disease. REFERENCE: Society of Radiologists in Ultrasound Liver Stiffness Thresholds (2020): LIVER STIFFNESS THRESHOLDS: *Shear wave velocity less than 1.3 m/s (Liver Stiffness equal or less than 5 kPa): High probability of being normal. *Shear wave velocity less than 1.7 m/s (Liver Stiffness less than 9 kPa): In the absence of other known clinical signs, rules out compensated advanced chronic liver disease. *Shear wave velocity between 1.7-2.1 m/s (Liver Stiffness 9-13 kPa): Suggestive of compensated advanced chronic liver disease but need further test for confirmation. *Shear wave velocity between 2.1-2.4 m/s (Liver Stiffness 13-17 kPa): Rules in compensated advanced chronic liver disease. *Shear wave velocity greater than 2.4 m/s (Liver Stiffness over 17 kPa): Suggestive of clinically significant portal hypertension. QUALITY OF DATA SET: *IQR/Median value equal or less than 0.15 implies a quality data set. *IQR/Median value over 0.15 implies a poor quality data set. SIGNIFICANT CHANGE FROM PRIOR EXAM: Significant change if liver stiffness measurement is 10% or greater from prior exam. OTHER CONSIDERATIONS: The stage of liver fibrosis may be overestimated in the setting of acute hepatitis, liver inflammation, elevated liver function tests, hepatic vascular congestion, obstructive cholestasis, non-fasting state, and infiltrative diseases such as amyloidosis and lymphoma. In some patients with NAFLD, the liver stiffness thresholds for compensated advanced chronic liver disease may be lower. In causes other than viral hepatitis and NAFLD, liver stiffness thresholds are not well established. Electronically signed by: Daron Summers MD 04/25/2025 10:11 AM EDT Dictated By: Daorn Summers MD Signed By: <Electronically signed by Daron Summers MD in OV> 04/25/25 1011 DD/ 0904 TD/TT: 04/25/2524 Shipping Agent: us Sarah Ziegler MD IMG US PROCEDURES Final Result * Syphilis Screen (04/22/2025 10:25 AM EDT) Syphilis Screen Nonreactive Nonreactive [facility] Blood 04/22/2025 10:2 5 AM EDT 04/22/2025 11:13 AM EDT us Sarah Ziegler MD LAB BLOOD ORDERAB LES Final Result [facility] [address] [place] [address] [phone] * Vitamin D, 25-Hydroxy, Total, Immunoassay (04/22/2025 10:25 AM EDT) Vitamin D 25-OH Total 37.5 >30 ng/mL [facility] Comment: Health Based Reference Values*< 20 ng/mL Hohponqpe61-79 ng/mL Insufficient> 30 ng/mL Sufficient*Mickie LAZARO. N Engl J Med. 2007;357:266-280There is no well-established upper level of normal vitamin Dlevels. Some laboratories use 50 ng/mL as an upper limit ofnormal. However, toxicity is patient-dependent and may occurat any level. Careful correlation with the patient'spresentation is necessary and, if there is concern forvitamin D toxicity, treatment should be consideredirrespective of the serum level.Care must be taken in interpreting Vitamin D results fromdifferent laboratories and methodologies. Published datademonstrated that results from patients undergoinghemodialysis may show a negative bias when tested withvarious automated 25-OH vitamin D assays when compared toLC-MS/MS.When testing samples from patients whose predominant form ofVitamin D is Vitamin D2, such as patients receiving VitaminD2 supplementation, results that are subtherapeutic shouldbe confirmed with another method such as LC-MS/MS. Blood Venous blood specimen / Unknown 04/22/2025 10:25 AM EDT 04/22/2025 11:13 AM EDT us Sarah Ziegler MD LAB BLOOD ORDERAB LES Final Result Performing Organization Address City/[facility]/ZIP Co de Phone Number [facility] [address] [place] [phone] * Vitamin B12 (Cobalamin) and Folate Panel, Serum (04/22/2025 10:25 AM EDT) Vitamin B12 713 200 - 900 pg/mL [facility] Comment:NORMAL 200-900 PG/ML INDETERMINATE 160-199 PG/ML DEFICIENT < 160 PG/ML Folate 12.4 > or = 4.0 ng/mL [facility] Comment:Reference Values:> o r = 4.0 ng/mL< 4.0 ng/mL suggests folate deficiency Methotrexate, aminopterin and folinic acid(leucovorin) are chemotherapeutic agents whose molecularstructures are similar to folate; therefore, the Architectfolate assay cannot be used for patients using these drugs. Blood 04/22/2025 10:2 5 AM EDT 04/22/2025 11:13 AM EDT us Sarah Ziegler MD LAB BLOOD ORDERAB LES Final Result Performing Organization Address [facility] Co de Phone Number [facility] [address] [place] [phone] * TSH with Reflex to Free T4 (04/22/2025 10:25 AM EDT) TSH reflex Free T4 0.59 0.32 - 4.0 uIU/mL [facility] Blood 04/22/2025 10:2 5 AM EDT 04/22/2025 11:13 AM EDT us Sarah Ziegler MD LAB BLOOD ORDERAB LES Final Result Performing Organization Address City/[facility]/ZIP Co de Phone Number [facility] [address] [place] [phone] * Albumin, Random Urine W/Creatinine (04/22/2025 10:25 AM EDT) Creatinine, Urine 142.32 mg/dL [facility] Microalbumin Urine 12.0 mg/L [facility] Microalbum Creatinine Ratio Ur 8.4 <30 ug/mg cr [facility] Comment:Albumin/Creatinine R atio Reference Ranges: Normal: < 30 ug/mg creatinine Microalbuminuria: 30 - 300 ug/mg creatinineClinical Albuminuria: > 300 ug/mg creatinine Urine (Urine, Random) 04/22/2025 10:25 AM EDT 04/22/2025 11:22 AM EDT Sarah Ziegler MD LAB URINE ORDERAB LES Final Result Performing Organization Address [facility]/ZIP Co de Phone Number [facility] [address] [place] [phone] * Hepatitis C Antibody with Reflex to HCV, RNA, Quantitative, Real-Time PCR (04/22/2025 10:25 AM EDT) Hepatitis C Antibody Nonreactive Nonreactive [facility] Comment:Antibodies to HCV no t detected; does not exclude early acuteHCV infection. Blood Venous blood specimen / Unknown 04/22/2025 10:25 AM EDT 04/22/2025 11:13 AM EDT us Sarah Ziegler MD LAB BLOOD ORDERAB LES Final Result Performing Organization Address City/[facility]/ZIP Co de Phone Number [facility] [address] [place] [phone] * Hepatitis B Core??Antibody (IgM) (04/22/2025 10:25 AM EDT) Hepatitis B Core Antibody IgM NON-REACTI VE NON-REACTI VE [facility] Comment:For additional infor sherri, please refer [email or web address](This link is being provided for informational/educational purposes only.)THIS TEST WAS PERFORMED AT:[facility] [place] [phone] WILSON MD 04/22/2025 10:2 5 AM EDT 04/22/2025 11:13 AM EDT Sarah Ziegler MD LAB BLOOD ORDERAB LES Final Result Performing Organization Address City/[facility]/ZIP Co de Phone Number [facility] [address] [place] [phone] * Hepatitis B surface antigen, EIA (04/22/2025 10:25 AM EDT) Hepatitis B Surface Ag Negative Negative [facility] Blood Venous blood specimen / Unknown 04/22/2025 10:25 AM EDT 04/22/2025 11:13 AM EDT Sarah Ziegler MD LAB BLOOD ORDERAB LES Final Result Performing Organization Address [facility] Phone Number [facility] [address] [place] [phone] * Hepatitis B Core Antibody, Total (04/22/2025 10:25 AM EDT) Hepatitis B Core Antibody Reactive Nonreactive [facility] Comment:Presumptive evidence of anti-HBc. Blood Venous blood specimen / Unknown 04/22/2025 10:25 AM EDT 04/22/2025 11:13 AM EDT Sarah Ziegler MD LAB BLOOD ORDERAB LES Final Result Performing Organization Address [facility] Co de Phone Number [facility] [address] [place] [phone] * HIV-1/2 Antigen and Antibodies, Fourth Generation, with Reflexes (04/22/2025 10:25 AM EDT) [facility] HIV AB/AG Nonreactive Nonreactive [facility] Comment:HIV-1 p24 Ag and/or HIV-1/HIV-2 Ab not detected.A test result that is nonreactive does not exclude thepossibility of exposure to or infection with HIV-1 and/orHIV-2. Nonreactive results in this assay for individualswith prior exposure to HIV-1 and/or HIV-2 may be due toantigen and antibody levels that are below the limit ofdetection of this assay.The Ayla HIV Ag/Ab Combo assay result andsupplemental assay results should be interpreted inconjunction with the patient's clinical presentation,history and other laboratory results. If the results areinconsistent with clinical evidence, additional testing issuggested to confirm the result. Blood Venous blood specimen / Unknown 04/22/2025 10:25 AM EDT 04/22/2025 11:13 AM EDT us Sarah Ziegler MD LAB BLOOD ORDERAB LES Final Result Performing Organization Address [facility]/ZIP Co de Phone Number [facility] [address] [place] [phone] * Hepatitis B Surface Antibody, Qualitative (04/22/2025 10:25 AM EDT) [facility] ~Hepatitis B Surface Antibody REACTIVE Nonreactive [facility] Comment:REACTIVE: > 11.99 mI U/mL Blood Venous blood specimen / Unknown 04/22/2025 10:25 AM EDT 04/22/2025 11:13 AM EDT us Sarah Ziegler MD LAB BLOOD ORDERAB LES Final Result Performing Organization Address [facility] Co de Phone Number [facility] [address] [place] [phone] * (ABNORMAL) CBC (04/22/2025 10:25 AM EDT) [facility] White Blood Count 6.2 4.8 - 10.8 X10*3/uL [facility] Red Blood Count 4.18(L) 4.60 - 5.80 X10*6/uL [facility] Hemoglobin 11.9(L) 14.0 - 18.0 g/dl [facility] Hematocrit 35.0(L) 42.0 - 52.0 % [facility] Mean Corpuscular Volume 83.7 80.0 - 98.0 fL [facility] Mean Corpuscular Hemoglobin 28.5 27.0 - 33.0 pg [facility] Mean Corpuscular HGB Conc 34.0 31.0 - 36.0 g/dl [facility] Red Cell Distribution Width 14.0 11.0 - 16.0 % [facility] Platelet Count 253 160 - 400 X10*3/uL [facility] Mean Platelet Volume 10.1 9.4 - 12.4 fL [facility] NRBC Pct Auto 0.0 0.0 - 0.2 /100WBC [facility] NRBC Abs Auto 0.000 0.0 - 0.012 X10*3/uL [facility] Blood Venous blood specimen / Unknown 04/22/2025 10:25 AM EDT 04/22/2025 11:16 AM EDT us Sarah Ziegler MD LAB BLOOD ORDERAB LES Final Result [facility] [address] [place] [address] [phone] * B Type Natriuretic Peptide (BNP) (04/22/2025 10:25 AM EDT) [facility] B Type Natriuretic Peptide 37 <100 pg/mL [facility] Blood Venous blood specimen / Unknown 04/22/2025 10:25 AM EDT 04/22/2025 11:16 AM EDT Sarah Ziegler MD LAB BLOOD ORDERAB LES Final Result Performing Organization Address [facility] Co de Phone Number [facility] [address] [place] [address] [phone] * Magnesium (04/22/2025 10:25 AM EDT) Only the most recent of2 resultswithin the time period is included. Magnesium 2.0 1.6 - 2.6 mg/dL [facility] Blood Venous blood specimen / Unknown 04/22/2025 10:25 AM EDT 04/22/2025 11:13 AM EDT us Sarah Ziegler MD LAB BLOOD ORDERAB LES Final Result Performing Organization Address [facility] Number [facility] [address] [place] [address] [phone] * Hemoglobin A1c (04/22/2025 10:25 AM EDT) Hemoglobin A1c 5.8 <6.0 % [facility] Comment:Hemoglobin A1C Refer ence Range Adults: 4.8 - 6.0 % Non diabetic: < 6.0 % Goal: < 7.0 %Additional Action Suggested: > 8.0 %Note: Hemoglobin A1c results are invalid for patients with abnormal amounts of HbF. Blood transfusions may impact the HbA1c concentration in the patient sample. Estimated Average Glucose 120 mg/dL [facility] Comment:eAG = Estimated ave rage glucose which is %A1C expressed asaverage glucose, using the formula of the B1V-ShoyxwvFgapjfd Glucose study (ADAG), Diabetes Care, Vol.31,#8,2007 Blood Venous blood specimen / Unknown 04/22/2025 10:25 AM EDT 04/22/2025 11:16 AM EDT us Sarah Ziegler MD LAB BLOOD ORDERAB LES Final Result Performing Organization Address [facility] Co de Phone Number [facility] [address] [place] [address] [phone] * Lipid Panel, Standard (04/22/2025 10:25 AM EDT) Triglycerides 58 <150 mg/dL [facility] Comment:Desirable Triglyceri de: less than 150 mg/dLBorderline High Triglyceride 150-199 mg/dLHigh Triglyceride: 200-499 mg/dLVery High Triglyceride: greater than or equal to 5OO mg/dL Cholesterol 131 <200 mg/dL [facility] Comment:Desirable Cholestero l: less than 200 mg/dLBorderline High Cholesterol: 200-239 mg/dLHigh Cholesterol: greater than 239 mg/dL LDL Cholesterol Calculated 62 <100 mg/dL [facility] Comment:Desirable LDL: less than 100 mg/dLNear Optimal/Above Optimal LDL: 110- 129 mg/dLBorderline High LDL: 130-159 mg/dLHigh LDL: 160-189 mg/dLVery High LDL: greater than or equal to 190 mg/dL HDL Cholesterol 58 >40 mg/dL [facility] Comment:Desirable HDL: great er than 40 mg/dL Note: This HDL assay may give artificially low results in patients with liver disease. Blood Venous blood specimen / Unknown 04/22/2025 10:25 AM EDT 04/22/2025 11:13 AM EDT us Sarah Ziegler MD LAB BLOOD ORDERAB LES Final Result [facility] [address] [place] [address] [phone] * Comprehensive Metabolic Panel (04/22/2025 10:25 AM EDT) Only the most recent of2 resultswithin the time period is included. Sodium 139 135 - 145 mmol/L [facility] Potassium 3.7 3.3 - 5.1 mmol/L [facility] Chloride 102 96 - 108 mmol/L [facility] Carbon Dioxide 29 22 - 29 mmol/L [facility] Anion Gap 12 12 - 20 [facility] Urea Nitrogen (BUN) 14 9 - 16 mg/dL [facility] Creatinine, Serum 0.66 0.5 - 1.4 mg/dL [facility] Estimated Glomerular Filt Rate >60 [facility] Comment:Chronic Kidney Disea se: Estimated GFR < 60 mL/min/1.16x2Eqchks Kidney Disease: Estimated GFR < 15 mL/min/1.73m2 Glucose 115 60 - 115 mg/dL [facility] Calcium 9.3 8.4 - 10.2 mg/dL [facility] Bilirubin, Total 0.5 0.0 - 1.0 mg/dL [facility] Aspartate Amino Transferase 31 5 - 37 U/L [facility] Alanine Aminotransferase 23 0 - 40 U/L [facility] Total Protein 7.2 6.5 - 8.0 g/dL [facility] Albumin Level 4.4 3.5 - 5.0 g/dL [facility] Alkaline Phosphatase 59 39 - 117 U/L [facility] Blood Venous blood specimen / Unknown 04/22/2025 10:25 AM EDT 04/22/2025 11:13 AM EDT Sarah Ziegler MD LAB BLOOD ORDERAB LES Final Result [facility] [address] [place] [phone] * POCT HGB A1C (02/26/2025 11:16 AM EDT) Hemoglobin A1C 5.9 4.0 - 6.0 % [employer] Media Lot # [id number] Lot# Expiration Date ,800,508 Blood 02/26/2025 11:1 6 AM EDT us Sarah Ziegler MD POINT OF CARE JERMAINE T ENTER/EDIT ORDERABLES Final Result * POCT Glucose (02/26/2025 11:14 AM EDT) Glucose Blood, POC 123 60 - 200 mg/dL [employer] Lot # [id number] Lot# Expiration Date [id number] Blood Capillary blood specimen / Unknown 02/26/2025 11:14 AM EDT Sarah Ziegler MD POINT OF CARE JERMAINE T ENTER/EDIT ORDERABLES Final Result * Colonoscopy (05/31/2017) Colonoscopy Normal Normal Narrative Kristen Bowman - 05/31/2017 Repeat in 5 years Historical Provider HEALTH MAINTENANCE Final Result from Last 3 Months or Most Recently Relevant to Health Maintenance Insurance [facility]O D-SNP) ARSH SIMON [id number] [place] [address] * Guarantor: Gonzales De La Torre Account Type Relation to Patient Date of Phone Billing Address Personal/Family [facility] [place] [address] BHUPINDER Olson20 Care Teams Safety Consultant Relationship Specialty Start Date End Date Sarah Canseco MD [address] [place] [phone] PCP - General Internal Medicine 02/18/23 Daron Veliz MD [address] [place] [address] Gastroenterology 05/01/25
--- OUTSIDE RECORDS SUMMARY | 2025-05-25 09:23 | XMS_ITS | Encounter Summary ---
Author Organization [employer] Address [address] [facility] [place] [address] Care Team Providers Care Dry Janitor Name Role Phone Sarah Canseco MD Primary Care Pro vider Daron Veliz MD Unavailable Encounter Details Date Type Department Care Team (Late st Contact Info) Description 08/05/2023 Abstract [facility] [address] [place], [place] [phone] Kristen Bowman Social History Tobacco Use Types [...] Description 07/11/2025 1:15 PM EDT Office Visit [facility] [address] [place], [place] [phone] Sarah Canseco MD [address] [place] [address] [phone] documented as of this encounter Procedures Procedure [...] documented as of this encounter Care Teams Dry Janitor Relationship Specialty Start Date End Date Sarah Canseco MD [address] [place] [address] [id number] PCP - General Internal Medicine 02/18/23 Daron Veliz MD [address] [place], [place] [phone] Gastroenterology 05/01/25 documented as of this encounter
== END 2025-05-25 09:19 | disposition home or self-care (01) ==
LOC: HO.MRI 09:18
PROVIDERS: PCP Student in an Organized Health Care Education/Training Program; Visit Provider Student in an Organized Health Care Education/Training Program
DX: K83.8 Other specified diseases of biliary tract (principal); R41.9 Unspecified symptoms and signs involving cognitive functions and awareness
CPT/HCPCS: 70551; 74181

== ENCOUNTER → 2025-05-25 09:23 | Outpatient (BNV) | payer OTHER, SELFPAY | PROVIDERS: PCP Student in an Organized Health Care Education/Training Program; Visit Provider Radiology Diagnostic Radiology | DX: R90.82 White matter disease, unspecified (principal); K83.1 Obstruction of bile duct; K76.0 Fatty (change of) liver, not elsewhere classified | CPT/HCPCS: 70551; 74181 ==

== ENCOUNTER 2025-07-19 08:26 | Outpatient (REF) | payer OTHER, SELFPAY ==
--- OUTSIDE RECORDS SUMMARY | 2024-05-02 05:40 | XMS_ITS ---
Author Organization [facility] Address [address] [place] [address] Care Team Providers Care Family Manager Name Role Phone Sarah Canseco Primary Care Provider Daron Gonzalez [phone] REASON FOR VISIT colon screening Encounters Encounter Location Date Provider Diagnosis [facility] [place] [address] [place], [place] [phone] 05/02/2024 Daron Veliz Plan Of Treatment No Information Progress Notes * BRUNILDA ELIASALEJANDROOB:1950 (75 yo M)Acc No.[id number]:05/02/2024 COLON WITH MAC Patient: ELLE BELTRAN Provider: Elo Veliz MD :1950 A ge:74 Y S ex:Male Date:05/02/2024 Address:[address] [place] [address] [facility] Pcp:Sarah Ziegler Subjective: * Chief Complaints: * 1 . Colon screening. * Medical History: Objective: * Vitals: Assessment: Plan: * Treatment: * * The named appointment provid er may or may not be the originator of this progress note, and it is not deemed complete until electronically signed by the appointment provider. Sign off status: Pending * Provider: Elo Veliz MD Date: 0 05/02/2024 Generated for [employer]/eTransmitting on: 08:39 AM EDT
--- OUTSIDE RECORDS SUMMARY | 2024-12-28 05:30 | XMS_ITS ---
Author Organization [facility] Address [address] [place] [address] Care Team Providers Care Baby Doctor Name Role Phone Sarah Canseco Primary Care Provider Daron Gonzalez [phone] REASON FOR VISIT colon screening Encounters Encounter Location Date Provider Diagnosis [facility] [address] [place], [place] [phone] 12/28/2024 Daron Veliz Plan Of Treatment No Information Progress Notes * BRUNILDA ELIASALEJANDROOB:1950 (75 yo M)Acc No.[id number]:12/28/2024 COLON WITH MAC Patient: ELLE BELTRAN Provider: Elo Veliz MD :1950 A ge:74 Y S ex:Male Date:12/28/2024 Address:[address] [place] [address] [id number] Pcp:Sarah Ziegler Subjective: * Chief Complaints: * [...] 0 12/28/2024 Generated for [facility]/Dustin/eTransmitting on: 1 08:39 AM EDT
--- OUTSIDE RECORDS SUMMARY | 2025-02-12 05:10 | XMS_ITS ---
Author Organization [facility] Address [address] [place] [address] Care Team Providers Care Cardiovascular Rn Name Role Phone Sarah Canseco Primary Care Provider Daron Gonzalez [phone] REASON FOR VISIT Patient presents today for a colon screening Encounters Encounter Location Date Provider Diagnosis [facility] [address] [place] [phone] 02/12/2025 Daron Veliz Plan Of Treatment No Information Progress Notes * DELMIS ELAISOB:1950 (75 yo M)Acc No.[id number]:02/12/2025 Progress Notes Patient: ELLE BELTRAN Provider: Elo Veliz MD :1950 A ge:74 Y S ex:Male Date:02/12/2025 Address:[address] [place] [address] [facility] Pcp:Sarah Ziegler Subjective: * Chief Complaints: * [...] Veliz MD Date: 0 02/12/2025 Generated for Travisi ng/Fayongg/eTransmitting on: 1 08:39 AM EDT
--- OUTSIDE RECORDS SUMMARY | 2025-07-17 09:20 | XMS_ITS ---
Author Organization [facility] Address [address] [place] [phone] Care Team Providers Care Formula Maker Name Role Phone Sarah Canseco Primary Care Provider Daron Gonzalez [phone] REASON FOR VISIT Patient presents today for colon screening /gastric pain Encounters Encounter Location Date Provider Diagnosis [facility] [address] [facility] [address] [place] [phone] 07/17/2025 Daron Veliz Plan Of Treatment No Information Progress Notes * DELMIS ELIASOB:1950 (75 yo M)Acc No.[id number]:07/17/2025 Progress Notes Patient: ELLE BELTRAN Provider: Elo Veliz MD :1950 A ge:75 Y S ex:Male Date:07/17/2025 Address:[address] [place] [address] [id number] Pcp:Sarah Ziegler Subjective: * Chief Complaints: * 1 . Patient presents today for colon screening /gastric pain. * Medical History: Objective: * Vitals: Assessment: Plan: * Treatment: * * The named appointment provid er may or may not be the originator of this progress note, and it is not deemed complete until electronically signed by the appointment provider. Sign off status: Pending * Provider: Elo Veliz MD Date: Generated for Printi ng/Faxing/eTransmitting on: 08:39 AM EDT
--- NOTE | ~2025-07-19 | CT_ITS ---
EXAMINATION: CT CHEST WITHOUT IV CONTRAST INDICATION: pt active tobacco somker with ongoing weight loss to r/o malignancy COMPARISON: There are no prior studies available for comparison. TECHNIQUE: Helical CT scan of the chest was performed without intravenous contrast. Coronal and sagittal reformatted images were generated and reviewed. This CT exam was performed with one or more of the following dose reduction techniques: automated exposure control, adjustment of the mA and/or kV according to patient size, use of iterative reconstruction technique. DLP: 128 mGy-cm CHEST: THYROID: The thyroid is unremarkable. LUNGS: Paraseptal emphysema. Biapical pleural and parenchymal scarring. There are several deeper biapical pulmonary nodules measuring 7 mm at the right lung apex axial image 25 series 4 and 9 mm at the left lung apex axial image 26 and 10 mm axial image 33 series 4. These may be related to pleural and parenchymal scarring as well. MEDIASTINUM: There are small mediastinal lymph nodes. There is no enlarged mediastinal lymphadenopathy. GRACE: Evaluation of the hilar regions is limited by lack of intravenous contrast material. No enlarged lymph nodes seen. CARDIOVASCULATURE: The heart is normal in size. There is no pericardial effusion. The thoracic aorta is normal in caliber. DEGREE OF CORONARY CALCIFICATION: none PLEURA: There is no pleural effusion. No pneumothorax. MAIN AIRWAYS: The mainstem bronchi and proximal branches are patent. AXILLA: There is no enlarged axillary lymphadenopathy. BONES AND SOFT TISSUES: Degenerative changes of the spine and mild scoliosis. Degenerative changes of the shoulders. UPPER ABDOMEN: Small 4 mm high attenuation focus in the cortex of the upper pole of the right kidney. Axial image 164 series 5. This may represent a hyperdense cyst. Bilateral peripelvic cysts. CT/CT chest wo IV con IMPRESSION: Mild paraseptal emphysema. Biapical pleural and parenchymal scarring. Bilateral deeper upper lobe apical nodules measuring up to 10 mm that may be related to pleural and parenchymal scarring. [address] follow-up recommended. Consider lung cancer screening program if patient meets eligibility. Electronically signed by: Brandy Hernandez MD 07/19/2025 09:36 AM EDT
--- OUTSIDE RECORDS SUMMARY | 2025-07-19 08:39 | XMS_ITS | Encounter Summary ---
Author Organization [employer] Address [address] [facility] 7t [place] [address] Care Team Providers Care Front Office Secretary Name Role Phone Sarah Canseco MD Primary Care Pro vider Daron Veliz MD Unavailable Encounter Details Date Type Department Care Team ([facility] st Contact Info) Description 05/27/2025 Results Follow-Up [facility] [address] [place], [place] [phone] Sarah Canseco MD [address] [place], [place] [phone] MR Brain w/o Contrast Social History Tobacco Use Types Packs/Day Years [...] Encounter Note - Sarah Ziegler MD - 05/27/2025 9:08 PM EDT Please call patient to advise to come to already scheduled apt with me to go over abnormal images Thanks ---- Pt to follow with GI at the end of 06/2025 will give image of MRCP to pt to take to sp ,as well will eval at next apt for complete neuro exam w brain MRI findings documented in this encounter Plan of Treatment Not on file documented as of this encounter Visit Diagnoses Not on filedocumented in this encounter Additional Health Concerns Assessment Noted Time PHQ-9 Depression Total Score: 6 03/04/20 25 3:19 PM EDT documented as of this encounter Care Teams Front Office Secretary Relationship Specialty Start Date End Date Sarah Canseco MD [address] [place] [phone] PCP - General Internal Medicine 02/18/23 Daron Veliz MD [address] [place] [address] [place], [place] [phone] Gastroenterology 05/01/25 documented as of this encounter
--- OUTSIDE RECORDS SUMMARY | 2025-07-19 08:39 | XMS_ITS | Encounter Summary ---
Author Organization [employer] Address [address] [facility] 7t [place] [address] Care Team Providers Care Marketing Communication Manager Name Role Phone Sarah Canseco MD Primary Care Pro vider Daron Veliz MD Unavailable Reason for Visit * Reason Onset Date Comments Care Coordination 07/12/2025 Encounter Details Date Type Department Care Team (Late st Contact Info) Description 07/12/2025 Telephone [facility] [address] [place], [place] [phone] Chen Clark RN [address] [place], [place] [phone] Care Coordination Social History Tobacco Use Types Packs/Day Years [...] encounter Miscellaneous Notes * Telephone Encounter - Sabi Crane RN - 07/16/2025 3:56 PM EDT Called [facility] x2 in regards to below message, spoke with Antwan. Antwan states that Brittney Singer director of home care hospice contacted the pt on 07/12/25 and the pt declines [employer] services and only requested transportation assistance (number was provider). Accounts Manager noted this, but asked for call back from health care / medical job titles todiscuss director of home care hospice themselves to help pt schedule and keep all 5 appts below. Antwan will send message to mati Lugo, reference #[id number]. * Telephone Encounter - Chen Clark RN - 07/12/2025 11:26 AM EDT Pt needs: -CT chest and TTE at [facility] for which he needs to call -Go to GI appointment 07/17/25 @ 1:20PM -Scheduled endo follow up / [facility] @ -Schedule hematology follow up w/ [facility] @ -Schedule ophthalmology f/u w/ [facility] @ -Needs assistance obtaining a LUMBER SORTER to manage appts Telephone call placed to [facility]. Spoke with Dulce who sent message requesting call back to my direct ext to pt's health care / medical job titles Brit[employer]y. Will retask to make sure I get a returned call Osmany Siddiqui This is the pt we talked about . Please inform his [facility] CM about need to complete all below referrals . 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 Thanks documented in this encounter Plan of Treatment Not on file documented as of this encounter Visit Diagnoses Not on filedocumented in this encounter Additional Health Concerns Assessment Noted Time PHQ-9 Depression Total Score: 6 03/04/20 25 3:19 PM EDT documented as of this encounter Care Teams Marketing Communication Manager Relationship Specialty Start Date End Date Sarah Canseco MD [address] [place] [phone] PCP - General Internal Medicine 02/18/23 Daron Veliz MD [address] [place] [address] Drive [address] [place] [address] Gastroenterology 05/01/25 documented as of this encounter
--- OUTSIDE RECORDS SUMMARY | 2025-07-19 08:39 | XMS_ITS | Encounter Summary ---
Author Organization [employer] Address [address] [facility] 7t [place] [address] Care Team Providers Care City Wellness Coordinator Name Role Phone Sarah Canseco MD Primary Care Pro vider Daron Veliz MD Unavailable Reason for Visit * Reason Comments Med Refill Encounter Details Date Type Department Care Team (Late st Contact Info) Description 03/20/2024 Refill [facility] [address] [place], [place] [phone] Sarah Canseco MD [address] [place], [place] [phone] Social History Tobacco Use Types Packs/Day Years [...] documented as of this encounter Care Teams City Wellness Coordinator Relationship Specialty Start Date End Date Sarah Canseco MD [address] [place] [address] PCP - General Internal Medicine 02/18/23 Daron Veliz MD [address] [place] [address] Gastroenterology 05/01/25 documented as of this encounter
--- OUTSIDE RECORDS SUMMARY | 2025-07-19 08:39 | XMS_ITS | Patient Health Record ---
Author Organization [facility] Address [address] [place] [address] Care Team Providers Care Bunch Maker Hand Name Role Phone Sarah Canseco Primary Care Provider Daron Gonzalez [phone] Allergies No Known Allergies Reason For Referral No Information Medications Medication SIG (Take, Route, Frequency, Duration) Notes Start Date End Date Status MiraLax (colon prep) 17 GM/SCOOP 1 238Gm bottle mixed with Gatorade or Crystal Light Orally begin at 5:00 p.m. the day before the procedure; Duration: 1 day 09/13/2023 Activ e Dulcolax (colon prep) 5 MG take at 3:00 p.m and 7:00p.m. Orally two tablets twice a day for one day; Duration: 1 day 09/13/2023 Active Social History Tobacco [...] Problem Status W/U Status Risk Notes Problem Screening for malignant neoplasm of colon (118822731) Encounter for screening for malignant neoplasm of colon (Z12.11) Active confirmed Problem History of adenomatous polyp of colon (516851604) History of adenomatous polyp of colon (Z86.010) Active confirmed Problem Screening for malignant neoplasm of rectum (494639712) Encounter for screening for malignant neoplasm of rectum (Z12.12) Active confirmed Problem Preprocedural examination (308457541803401) Preprocedural examination (Z01.818) Active confirmed Encounters Encounter Location Date Provider Diagnosis [facility] [address] [place] [phone] 07/17/2025 Daron Veliz [facility] [address] [place] [phone] 12/18/2024 Daron Veliz [facility] [address] [place] [phone] 02/12/2025 Daron Veliz Plan Of Treatment Future Test Test Name Order Date COLONOSCOPY 10/14/2016 COLONOSCOPY 09/13/2023 Insurance Providers Payer Name Payer Address Payer Phone Subscriber Number Group Number Insured Name Patient Relationship to Insured Coverage Start Date Coverage End Date [facility] [address] Attn Claims ARSH Ansari [id number] ELLE ELIAS Self - patient is the insured Medical (General) History Medical History History ICD Code Screening Colonoscopy 27-2 009--1 small tubular adenoma, diverticulosis, internal hemorrhoids Kidney stones Denies [place],DM,CVA,Lung disease,renal dise ase Mild chronic anemia Negative screening colonoscopy in 05/2017 HTN Surgical History Surgery Date(Month/Year)
--- OUTSIDE RECORDS SUMMARY | 2025-07-19 08:40 | XMS_ITS | Clinical Summary ---
Author Organization [employer] Address [address] [place] [address] Care Team Providers Care Interior Assemblies Developer Prover Name Role Phone Sarah Canseco MD Primary [...] po bid prn constipation 60 capsule 3 5 Active tamsulosin (Flomax) 0.4 MG 24 hr capsule TAKE 1 CAPSULE BY MOUTH EVERY DAY 30 MINUTES AFTER THE SAME MEAL 90 capsule 5 Active lisinopril-hydr oCHLOROthiazide 20-25 MG tablet TAKE 1 TABLET BY MOUTH EVERY DAY IN THE MORNING 90 tablet 5 Active omeprazole (PriLOSEC) [address] capsule TAKE 1 CAPSULE BY MOUTH EVERY DAY 90 capsule 5 Active nicotine polacrilex (Nicotine Mini) 2 MG lozenge Dissolve 1 lozenge (2 mg) in the mouth if needed for smoking cessation. 100 lozenge 1 5 08/10/20 25 Active nicotine (Nicoderm CQ) 14 MG/24HR patch Place 1 patch on the skin 1 (one) time each day at the same time. 42 patch 1 5 09/09/20 25 Active donepezil (Aricept) 5 MG tablet Take 1 tablet (5 mg) by mouth at bedtime. 90 tablet 5 07/11/20 26 Active Active Problems Problem Noted Date Diagnosed Date Dementia (CMS/HCC) 07/11/2025 Weight loss 05/03/2025 Cirrhosis ([facility]/HCC) 05/03/2025 Common bile duct dilatation 05/03/2025 Depression, unspecified 03/04/2025 Gastritis 02/27/2025 Hypomagnesemia 02/15/2025 Assessment & Plan (02/16/2025 6:08 PM EDT): Labs ordered, start on low dose mg pending lab results Grieving 01/17/2024 Assessment & Plan (03/04/2025 3:31 [...] agree on contacting clinician for additional support. [facility] information given. Prediabetes 09/09/2023 Tobacco use 07/11/2023 Health care maintenance 07/11/2023 Abnormal tympanic membrane 07/11/2023 Essential hypertension 02/09/2019 Male hypogonadism 10/17/2018 Microscopic hematuria 10/17/2018 Opioid dependence 06/06/2012 Anemia 03/02/2012 Resolved Problems Problem Noted Date Diagnosed Date Resolved Date Blood in urine 03/02/2012 07/11/2023 Contact dermatitis 03/02/2012 Vitamin D deficiency 03/02/2012 023 Encounters Date Type Department Care Team Description 07/12/2025 Telephone [facility] [address] [place] [address] Chen Clark, RN Care Coordination 07/11/2025 1:15 PM EDT Office Visit [facility] [address] [place] [address] Sarah Canseco MD Essential hypertension (Primary Dx); Encounter for immunization; Male hypogonadism; Weight loss; Other cirrhosis of liver (HCC); Common bile duct dilatation; Health care maintenance; Anemia, unspecified type; Tobacco use; Moderate dementia without behavioral disturbance, psychotic disturbance, mood disturbance, or anxiety, unspecified dementia type (CMS/HCC) (HCC) 07/11/2025 Telephone [facility] [place] [address] Sarah Canseco MD Durable Medical Equipment 07/11/2025 Travel 07/10/2025 Telephone [facility] [address] [place] [address] Sarah Canseco MD chart prep 05/27/2025 Results Follow-Up [facility] [place] [address] Sarah Canseco MD MR Brain w/o Contrast 05/20/2025 [place]ill [place] [address] Sarah Canseco MD 05/02/2025 11:15 AM EDT Office [place] [address] Sarah Canseco MD Common bile duct dilatation (Primary Dx); Memory loss; Weight loss; Essential hypertension; Health care maintenance; Depression, unspecified depression type; Poor memory; Tobacco use; Other cirrhosis of liver (CMS/HCC) 05/02/2025 [place]phone [place] [address] Sarah Canseco MD Durable Medical Equipment 05/02/2025 Travel 05/01/2025 [place]phone [place] [address] Sarah Canseco MD chart prep 04/25/2025 Results Follow-Up [place] [address] Sarah Canseco MD [facility] 04/25/2025 Orders Only [place] [address] Sarah Canseco MD 04/22/2025 11:30 AM EDT Clinical Support [facility] [address] [place] [address] Sneha Welsh RN Poor memory 04/22/2025 Results Follow-Up [facility] [address] [place], [place] [address] Sarah Canseco MD POCT Glucose, POCT HGB A1C, Albumin, Random Urine W/Creatinine, Additional followed-up results: 9 04/22/2025 Travel from Last 3 Months Immunizations Immunization Administration Dates Next Due Hep A, Adult 10/20/2007 Hep B, adult 10/20/2007 Influenza High-dose Quadrivalent Preservative Fr ee 07/11/2023,07/01/2022 Influenza injectable quadriv alent IIV4 with preservative 10/25/2017 Influenza injectable quadrivalent preservative f ree 08/18/2021 Influenza, High Dose Seasonal, Preservative Free 07/11/2025 Influenza, IIV3, injectable 07/02/2011 Influenza, Split (incl. purified surface antigen ) 06/06/2012 [place] SARS-CoV-2 Vaccination 12/16/2020 MMR 09/23/2011 [facility] Covid-19 Vaccine 12+ 07/11/2025, Pneumococcal Conjugate PCV 13 08/18/2021 Pneumococcal Conjugate [...] your housing situation today? I have noel melissa 02/26/[address] you li [...] Sign Reading Time Taken Comments Blood Pressure 122/64 07/11/2025 1:15 PM EDT Pulse 96 07/11/2025 1:15 PM EDT Temperature 36.2 C (97.1 F) 07/11/2025 1:15 PM EDT Respiratory Rate 20 07/11/2025 1:15 PM EDT Oxygen Saturation 99% 05/02/2025 11:51 AM EDT Inhaled Oxygen Concentration - - Weight 60.9 kg (134 lb 3.2 oz) 07/11/2025 1:15 P M EDT Height 157.5 cm (5' 2 ) 07/11/2025 1:15 PM EDT Body Mass Index 24.55 07/11/2025 1:15 PM EDT Plan of Treatment Health Maintenance Due Date Last Done Comments Hepatitis B Vaccines (2 of 3 - Risk 3-dose series) 11/17/2007 10/20/2007 Hepatitis A Vaccines (2 of 2 - Risk 2-dose series) 04/19/2008 10/20/2007 COVID-19 Vaccine ( season) 2026 07/11/2025, 08/18/2021, 12/16/2020 SDOH Screening 02/26/2026 02/26/2025 Depression Screening 03/04/2026 03/04/2025, 03/04/20 Diabetes: Hemoglobin A1C 04/22/2026 025, 02/26/2025, 02/10/2024, Additional history exists Alcohol/Substance Use Screening 05/02/2026 05/02/2025 Tobacco Screening 07/11/2026 07/11/2025 Lipid Panel 04/22/2030 04/22/2025, 06/20, 04/12/2022, Additional history exists DTaP/Tdap/Td Vaccines (4 - Td or Tdap) 07/01/2032 07/01/2022, 05/27/2021, 01/25/2012, Additional history exists Colonoscopy Discontinued 05/31/2017 Colorectal Cancer Screening Discontinued Pneumococcal Vaccine: 50+ Years Completed 07/11/2023, 08/18/2021, 10/20/2009 RSV Patients and Patients Aged 60 years or older Completed 01/19/2024 Zoster Vaccines Completed 03/20/2024, 01/19/2024 Hepatitis C Screening Completed 04/22/2025, 023 Influenza Vaccine Completed 07/11/2025, , 07/01/2022, Additional history exists CT Colonography Discontinued FIT DNA/Cologuard Discontinued FIT [...] Procedure Name Priority Date/Time Associated Diagnosis Comments MR BRAIN WO CONTRAST Routine 05/25/2025 9:48 AM EDT Memory loss MR MRCP Routine 05/25/2025 9:23 AM EDT Common bile duct dilatation US BLADDER Routine 04/30/2025 12:53 PM EDT [...] MAGNESIUM Routine 04/22/2025 10:25 AM EDT Hypomagnesemia HM COLONOSCOPY Routine 05/31/2017 from Last 3 Months or Most Recently Relevant to Health Maintenance Results * MR Brain w/o Contrast (05/25/2025 9:48 AM EDT) Anatomical Region Laterality Modality Brain Magnetic Resonan ce 05/25/2025 9:48 AM EDT Narrative 05/27/2025 8:07 AM EDT [address] [address] Magnetic Resonance Report Signed Patient: Gonzales De La Torre MR#: [id number] : 1950 Acct:[id number] Age/Sex: 75 / M ADM Date: 05/25/25 Loc: HO.MRI Attending Dr: Sarah Ziegler MD Ordering Physician: Sarah Canseco MD Date of Service: 05/25/25 Procedure(s): MR head/brain wo con Accession Number(s): [id number] cc: Sarah Canseco MD Reason for Exam: memory loss EXAMINATION: MR BRAIN WITHOUT CONTRAST CLINICAL INFORMATION: Memory loss COMPARISON: November 17, 2021. TECHNIQUE: MRI of the brain was obtained using routine sequences without contrast. FINDINGS: No restricted diffusion. 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 Mojica-white matter differentiation is normal. Bilateral multifocal patchy and punctate subcortical deep white matter hyperintense T2 FLAIR signal involving centrum semiovale, arnold radiata and to a lesser extent mid juliana, the most conspicuous in the right subinsular region. Posterior cranial fossa contents demonstrated no gross gross mass effect or signal abnormality. Normal position of the cerebellar tonsils. Sellar/suprasellar region demonstrated no gross signal abnormality or masses. Flow-void signal within the main cerebral vessels is normal. Mucosal thickening, ethmoid air cells and left maxillary sinus. MR/MR head/brain wo con IMPRESSION: No acute brain abnormality. 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 Electronically signed by: Sonu Almaguer MD 05/27/2025 08:04 AM EDT Dictated By: Sonu Quintanilla MD Signed By: <Electronically signed by Sonu Clark MD in OV> 05/27/25 0804 DD/ 0948 TD/TT: 05/25/[address]: Procedure Note Donotuseinterpreter, Image - 05/27/[address] [address] Magnetic Resonance Report Signed Patient: Gonzales De La TorreMR#: [id number] : 9Acct:[id number] Age/Sex: 75 / MADM Date: 05/25/25 Loc: HO.MRI Attending Dr: Sarah Ziegler MD Ordering Physician: Sarah Canseco MD Date of Service: 05/25/25 Procedure(s): MR head/brain wo con Accession Number(s): [id number] cc: Sarah Canseco MD Reason for Exam: memory loss EXAMINATION: MR BRAIN WITHOUT CONTRAST CLINICAL INFORMATION: Memory loss COMPARISON: November 17, 2021. TECHNIQUE: MRI of the brain was obtained using routine sequences without contrast. FINDINGS: No restricted diffusion. 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 Mojica-white matter differentiation is normal. Bilateral multifocal patchy and punctate subcortical deep white matter hyperintense T2 FLAIR signal involving centrum semiovale, arnold radiata and to a lesser extent mid juliana, the most conspicuous in the right subinsular region. Posterior cranial fossa contents demonstrated no gross gross mass effect or signal abnormality. Normal position of the cerebellar tonsils. Sellar/suprasellar region demonstrated no gross signal abnormality or masses. Flow-void signal within the main cerebral vessels is normal. Mucosal thickening, ethmoid air cells and left maxillary sinus. MR/MR head/brain wo con IMPRESSION: No acute brain abnormality. 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 Electronically signed by: Sonu Almaguer MD 05/27/2025 08:04 AM EDT Dictated By: Sonu Quintanilla MD Signed By: <Electronically signed by Sonu Clark MDin OV> 05/27/25 0804 DD/ 0948 TD/TT: 05/25/[address]: us Sarah Ziegler MD IMG MRI PROCEDURE S Edited Result - Final * MR MRCP (05/25/2025 9:23 AM EDT) Anatomical Region Laterality Modality Lower Extremities Left Magnetic Reson ance 05/25/2025 9:23 AM EDT Narrative 05/27/2025 7:11 AM EDT [place] [address] Magnetic Resonance Report Signed Patient: Gonzales De La Torre MR#: [id number] : 1950 Acct:[id number] Age/Sex: 75 / M ADM Date: 05/25/25 Loc: HO.MRI Attending Dr: Sarah Ziegler MD Ordering Physician: Sarah Canseco MD Date of Service: 05/25/25 Procedure(s): MR MRCP Accession Number(s): [id number] cc: Sarah Canseco MD Reason for Exam: CBD mild dilated ,chronic abdomninal pain EXAMINATION: MRCP HISTORY: CBD mild dilated ,chronic abdominal pain COMPARISON: Correlation is made with an abdominal ultrasound dated 04/25/[address] scan dated 06/05/2019. TECHNIQUE: Axial gradient echo in and out of phase T1, axial T2 and fat suppressed T2, and coronal haste T2 with fat saturation images were obtained through the abdomen. 3D MRCP Reconstructed images and thick slab imaging of the biliary tree were obtained. FINDINGS: There is mild heterogeneous loss of signal intensity within the liver on opposed phase imaging, consistent with steatosis. There is no intrahepatic biliary ductal dilatation. The gallbladder is unremarkable. The common bile duct is moderately dilated measuring up to 12 mm. No intraluminal filling defects are identified to suggest choledocholithiasis. The pancreatic duct is mildly dilated measuring up to 4 mm in diameter. The degree of dilatation of the common bile duct is similar to the prior CT scan. No stricture is identified. The spleen, pancreas, and adrenals are unremarkable without intravenous contrast material. There are multiple bilateral renal parapelvic cysts. No retroperitoneal lymphadenopathy or ascites is identified in the upper abdomen. The visualized bones demonstrate normal marrow signal intensity. MR/MR MRCP IMPRESSION: 1. Moderate dilatation of common bile duct and mild dilatation of the pancreatic duct, similar in appearance to a CT scan dated 06/05/2019. No evidence of choledocholithiasis. 2. Hepatic steatosis. Electronically signed by: Daron Summers MD 05/27/2025 07:08 AM EDT RP Dictated By: Daron Summers MD Signed By: <Electronically signed by Daron Summers MD in OV> 05/27/25 0708 DD/ 2 TD/TT: 05/25/[address]: Procedure Note Donotuseinterpreter, Image - 05/27/2025 [place] [address] Magnetic Resonance Report Signed Patient: Darrell De La Torre#: [id number] : 9Acct:[id number] Age/Sex: 75 / MADM Date: 05/25/25 Loc: HO.MRI Attending Dr: Sarah Ziegler MD Ordering Physician: Sarah Canseco MD Date of Service: 05/25/25 Procedure(s): MR MRCP Accession Number(s): [id number] cc: Sarah Canseco MD Reason for Exam: CBD mild dilated ,chronic abdomninal pain EXAMINATION: MRCP HISTORY: CBD mild dilated ,chronic abdominal pain COMPARISON: Correlation is made with an abdominal ultrasound dated 04/25/[address] scan dated 06/05/2019. TECHNIQUE: Axial gradient echo in and out of phase T1, axial T2 and fat suppressed T2, and coronal haste T2 with fat saturation images were obtained through the abdomen. 3D MRCP Reconstructed images and thick slab imaging of the biliary tree were obtained. FINDINGS: There is mild heterogeneous loss of signal intensity within the liver on opposed phase imaging, consistent with steatosis. There is no intrahepatic biliary ductal dilatation. The gallbladder is unremarkable. The common bile duct is moderately dilated measuring up to 12 mm. No intraluminal filling defects are identified to suggest choledocholithiasis. The pancreatic duct is mildly dilated measuring up to 4 mm in diameter. The degree of dilatation of the common bile duct is similar to the prior CT scan. No stricture is identified. The spleen, pancreas, and adrenals are unremarkable without intravenous contrast material. There are multiple bilateral renal parapelvic cysts. No retroperitoneal lymphadenopathy or ascites is identified in the upper abdomen. The visualized bones demonstrate normal marrow signal intensity. MR/MR MRCP IMPRESSION: 1. Moderate dilatation of common bile duct and mild dilatation of the pancreatic duct, similar in appearance to a CT scan dated 06/05/2019. No evidence of choledocholithiasis. 2. Hepatic steatosis. Electronically signed by: Daron Summers MD 05/27/2025 07:08 AM EDT Dictated By: Daron Summers MD Signed By: <Electronically signed by Daron Summers MD in [place]> 05/27/25 0708 DD/ 0923 TD/TT: 05/25/[address] Judge: us Sarah Ziegler MD IMG MRI PROCEDURE S Edited Result - Final * US BLADDER (04/30/2025 12:53 PM EDT) Anatomical Region Laterality Modality Abdomen Ultrasound 04/30/2025 12:5 3 PM EDT Narrative 04/30/2025 12:55 PM EDT [place] [address] Ultrasound Report Signed Patient: Gonzales De La Torre MR#: [id number] : 1950 Acct:[id number] Age/Sex: 75 / M ADM Date: 04/30/25 Loc: HO.US Attending Dr: Yohana LUNDBERG Ordering Physician: Yohana Aponte Date of Service: 04/30/25 Procedure(s): US bladder Accession Number(s): [id number] cc: Yohana Aponte; Sarah Canseco MD CLINICAL [...] Mario MD in OV> 04/30/25 1254 DD/ 125 TD/TT: 04/30/251252 County Court Judge: Procedure Note Donotuseinterpreter, Image - 04/30/2025 [place] [address] Ultrasound Report Signed Patient: Gonzales De La TorreMR#: [id number] : 9Acct:[id number] Age/Sex: 75 / MADM Date: 04/30/25 Loc: HO.US Attending Dr: Yohana LUNDBERG Ordering Physician: Yohana Aponte Date of Service: 04/30/25 Procedure(s): US bladder Accession Number(s): [id number] cc: Yohana Aponte; Sarah Canseco MD CLINICAL [...] Mario MD in OV> 04/30/25 1254 DD/ 125 TD/TT: 04/30/251252 County Court Judge: us [facility] External Provider IMG US PROCEDURES Edited Result - Final * US aorta (04/25/2025 9:04 AM EDT) Anatomical Region Laterality Modality Abdomen Ultrasound 04/25/2025 9:04 AM EDT Narrative 04/25/2025 10:14 AM EDT [address] [address] Ultrasound Report Signed Patient: Gonzales De La Torre MR#: [id number] : 1950 Acct:[id number] Age/Sex: 75 / M ADM Date: 04/25/25 Loc: HO.US Attending Dr: Sarah Ziegler MD Ordering Physician: Sarah Canseco MD Date of Service: 04/25/25 Procedure(s): US aorta Accession Number(s): [id number] cc: Sarah Canseco MD EXAMINATION: US ABDOMEN [...] OV> 04/25/25 1011 DD/ 3 TD/TT: 04/25/[address] Judge: Procedure Note Donotuseinterpreter, Image - 04/25/2025 [place] [address] Ultrasound Report Signed Patient: Darrell De La Torre#: [id number] : 9Acct:[id number] Age/Sex: 75 / MADM Date: 04/25/25 Loc: HO.US Attending Dr: Sarah Ziegler MD Ordering Physician: Sarah Canseco MD Date of Service: 04/25/25 Procedure(s): US aorta Accession Number(s): [id number] cc: Sarah Canseco MD EXAMINATION: US ABDOMEN [...] 04/25/25 1011 DD/ 0904 TD/TT: 04/25/[address] Judge: us Sarah Ziegler MD IMG US PROCEDURES Final Result * US Abdomen Comp w elastography (04/25/2025 9:04 AM EDT) Anatomical Region Laterality Modality Abdomen Ultrasound 04/25/2025 9:04 AM EDT Narrative 04/25/2025 10:14 AM EDT [address] [address] Ultrasound Report Signed Patient: Gonzales De La Torre MR#: [id number] : 1950 Acct:[id number] Age/Sex: 75 / M ADM Date: 04/25/25 Loc: HO.US Attending Dr: Sarah Ziegler MD Ordering Physician: Sarah Canseco MD Date of Service: 04/25/25 Procedure(s): US abdomen comp w elastography Accession Number(s): [id number] cc: Sarah Canseco MD EXAMINATION: US ABDOMEN [...] 04/25/25 1011 DD/ 0904 TD/TT: 04/25/[address]: Procedure Note Donotuseinterpreter, Image - 04/25/2025 [place] [address] Ultrasound Report Signed Patient: Darrell De La Torre#: [id number] : 9Acct:[id number] Age/Sex: 75 / MADM Date: 04/25/25 Loc: HO.US Attending Dr: Sarah Ziegler MD Ordering Physician: Sarah Canseco MD Date of Service: 04/25/25 Procedure(s): US abdomen comp w elastography Accession Number(s): [id number] cc: Sarah Canseco MD EXAMINATION: US ABDOMEN [...] 04/25/25 1011 DD/ 0904 TD/TT: 04/25/[address] Judge: us Sarah Ziegler MD IMG US PROCEDURES Final Result * Syphilis Screen (04/22/2025 10:25 AM EDT) Pathologist [facility] Syphilis Screen Nonreactive Nonreactive [facility] Blood 04/22/2025 10:2 5 AM EDT 04/22/2025 11:13 AM EDT us Sarah Ziegler MD LAB BLOOD ORDERAB LES Final Result [facility] [address] [place] [address] [phone] * Vitamin D, 25-Hydroxy, Total, Immunoassay (04/22/2025 10:25 AM EDT) Vitamin D 25-OH Total 37.5 >30 ng/mL [facility] Comment: Health Based Reference Values*< 20 ng/mL [id number] ng/mL Insufficient> 30 ng/mL Sufficient*Mickie LAZARO. N [...] MD LAB BLOOD ORDERAB LES Final Result [facility] [address] [place] [phone] * Vitamin B12 (Cobalamin) and Folate Panel, Serum (04/22/2025 10:25 AM EDT) Vitamin B12 713 200 - 900 pg/mL [facility] Comment:NORMAL 200-900 PG/ML INDETERMINATE 160-199 PG/ML DEFICIENT < 160 PG/ML Folate 12.4 > or = 4.0 ng/mL [facility] Comment:Reference Values:> o r = 4.0 ng/mL< 4.0 ng/mL suggests folate deficiency Methotrexate, aminopterin and folinic acid(leucovorin) are chemotherapeutic agents whose molecularstructures are similar to folate; therefore, the Architectfolate assay cannot be used for patients using these drugs. Blood 04/22/2025 10:2 5 AM EDT 04/22/2025 11:13 AM EDT us Sarah Ziegler MD LAB BLOOD ORDERAB LES Final Result Performing Organization Address [facility]/ZIP Co de Phone Number [facility] [address] [place] [phone] * TSH with Reflex to Free T4 (04/22/2025 10:25 AM EDT) TSH reflex Free T4 0.59 0.32 - 4.0 uIU/mL [facility] Blood 04/22/2025 10:2 5 AM EDT 04/22/2025 11:13 AM EDT us Sarah Ziegler MD LAB BLOOD ORDERAB LES Final Result Performing Organization Address [facility] Co id Phone Number [facility] [address] [place] [address] [phone] * Albumin, Random Urine W/Creatinine (04/22/2025 10:25 AM EDT) Creatinine, Urine 142.32 mg/dL [facility] Microalbumin Urine 12.0 mg/L [facility] Microalbum Creatinine Ratio Ur 8.4 <30 ug/mg cr [facility] Comment:Albumin/Creatinine R atio Reference Ranges: Normal: < 30 ug/mg creatinine Microalbuminuria: 30 - 300 ug/mg creatinineClinical Albuminuria: > 300 ug/mg creatinine Urine (Urine, Random) 04/22/2025 10:25 AM EDT 04/22/2025 11:22 AM EDT us Sarah Ziegler MD LAB URINE ORDERAB LES Final Result Performing Organization Address [facility] Co de Phone Number [facility] [address] [place] [address] [phone] * Hepatitis C Antibody with Reflex to HCV, RNA, Quantitative, Real-Time PCR (04/22/2025 10:25 AM EDT) Pathologist [facility] Hepatitis C Antibody Nonreactive Nonreactive [facility] Comment:Antibodies to HCV no t detected; does not exclude early acuteHCV infection. Blood Venous blood specimen / Unknown 04/22/2025 10:25 AM EDT 04/22/2025 11:13 AM EDT Result [facility] Sarah Ziegler MD LAB BLOOD ORDERAB LES Final Result Performing Organization Address [facility] de Phone Number [facility] [address] [place] [address] [phone] * Hepatitis B Core??Antibody (IgM) (04/22/2025 10:25 AM EDT) [facility] Hepatitis B Core Antibody IgM NON-REACTI VE NON-REACTI VE [facility] Comment:For additional infor sherri, please refer tohttp://education.Tradegecko/faq/YLW838(This link is being provided for informational/educational purposes only.)THIS TEST WAS PERFORMED AT:[employer] [place] [phone] WILSON MD 04/22/2025 10:2 5 AM EDT 04/22/2025 11:13 AM EDT Result [facility] Sarah Ziegler MD LAB BLOOD ORDERAB LES Final Result Performing Organization Address [facility] de Phone Number [facility] [address] [place] [address] [phone] * Hepatitis B surface antigen, EIA (04/22/2025 10:25 AM EDT) [facility] Hepatitis B Surface Ag Negative Negative [facility] Blood Venous blood specimen / Unknown 04/22/2025 10:25 AM EDT 04/22/2025 11:13 AM EDT Result [facility] Sarah Ziegler MD LAB BLOOD ORDERAB LES Final Result Performing Organization Address City/[facility]/ZIP Co de Phone Number [facility] [address] [place] [phone] * Hepatitis B Core Antibody, Total (04/22/2025 10:25 AM EDT) Hepatitis B Core Antibody Reactive Nonreactive [facility] Comment:Presumptive evidence of anti-HBc. Blood Venous blood specimen / Unknown 04/22/2025 10:25 AM EDT 04/22/2025 11:13 AM EDT Sarah Ziegler MD LAB BLOOD ORDERAB LES Final Result Performing Organization Address [facility] Co de Phone Number [facility] [address] [place] [phone] * HIV-1/2 Antigen and Antibodies, Fourth Generation, with Reflexes (04/22/2025 10:25 AM EDT) HIV AB/AG Nonreactive Nonreactive [facility] Comment:HIV-1 p24 Ag and/or HIV-1/HIV-2 Ab not detected.A test result that is nonreactive does not exclude thepossibility of exposure to or infection with HIV-1 and/orHIV-2. Nonreactive results in this assay for individualswith prior exposure to HIV-1 and/or HIV-2 may be due toantigen and antibody levels that are below the limit ofdetection of this assay.The Tailored Fit HIV Ag/Ab Combo assay result andsupplemental assay [...] City/[facility]/ZIP Co de Phone Number [facility] [address] [place] [phone] * Hepatitis B Surface Antibody, Qualitative (04/22/2025 10:25 AM EDT) [facility] ~Hepatitis B Surface Antibody REACTIVE Nonreactive [facility] Comment:REACTIVE: > 11.99 mI U/mL Blood Venous blood specimen / Unknown 04/22/2025 10:25 AM EDT 04/22/2025 11:13 AM EDT Sarah Ziegler MD LAB BLOOD ORDERAB LES Final Result Performing Organization Address [facility] Co de Phone Number [facility] [address] [place] [phone] * (ABNORMAL) CBC (04/22/2025 10:25 AM EDT) [facility] White Blood Count 6.2 4.8 - 10.8 X10*3/uL [facility] Red Blood Count 4.18(L) 4.60 - 5.80 X10*6/uL [facility] Hemoglobin 11.9(L) 14.0 - 18.0 g/dl [facility] Hematocrit 35.0(L) 42.0 - 52.0 % [facility] Mean Corpuscular Volume 83.7 80.0 - 98.0 fL [facility] Mean Corpuscular Hemoglobin 28.5 27.0 - 33.0 pg [facility] Mean Corpuscular HGB Conc 34.0 31.0 - 36.0 g/dl [facility] Red Cell Distribution Width 14.0 11.0 - 16.0 % [facility] Platelet Count 253 160 - 400 X10*3/uL [facility] Mean Platelet Volume 10.1 9.4 - 12.4 fL [facility] NRBC Pct Auto 0.0 0.0 - 0.2 /100WBC [facility] NRBC Abs Auto 0.000 0.0 - 0.012 X10*3/uL [facility] Blood Venous blood specimen / Unknown 04/22/2025 10:25 AM EDT 04/22/2025 11:16 AM EDT us Sarah Ziegler MD LAB BLOOD ORDERAB LES Final Result [facility] [address] [place] [phone] * B Type Natriuretic Peptide (BNP) (04/22/2025 10:25 AM EDT) B Type Natriuretic Peptide 37 <100 pg/mL [facility] Blood Venous blood specimen / Unknown 04/22/2025 10:25 AM EDT 04/22/2025 11:16 AM EDT us Sarah Ziegler MD LAB BLOOD ORDERAB LES Final Result Performing Organization Address [facility] Co de Phone Number [facility] [address] [place] [phone] * Magnesium (04/22/2025 10:25 AM EDT) Only the most recent of2 resultswithin the time period is included. Magnesium 2.0 1.6 - 2.6 mg/dL [facility] Blood Venous blood specimen / Unknown 04/22/2025 10:25 AM EDT 04/22/2025 11:13 AM EDT us Sarah Ziegler MD LAB BLOOD ORDERAB LES Final Result Performing Organization Address [facility] Co de Phone Number [facility] [address] [place] [phone] * Hemoglobin A1c (04/22/2025 10:25 AM EDT) Hemoglobin A1c 5.8 <6.0 % [facility] Comment:Hemoglobin A1C Refer ence Range Adults: 4.8 - 6.0 % Non diabetic: < 6.0 % Goal: < 7.0 %Additional Action Suggested: > 8.0 %Note: Hemoglobin A1c results are invalid for patients with abnormal amounts of HbF. Blood transfusions may impact the HbA1c concentration in the patient sample. Estimated Average Glucose 120 mg/dL [facility] Comment:eAG = Estimated ave rage glucose which is %A1C expressed asaverage glucose, using the formula of the F1T-SkzjclkBnlrbca Glucose study (ADAG), Diabetes Care, Vol.31,#8,Apr. 2007 Blood Venous blood specimen / Unknown 04/22/2025 10:25 AM EDT 04/22/2025 11:16 AM EDT us Sarah Ziegler MD LAB BLOOD ORDERAB LES Final Result [facility] [address] [place] [phone] * Lipid Panel, Standard (04/22/2025 10:25 AM EDT) Triglycerides 58 <150 mg/dL [facility] Comment:Desirable Triglyceri de: less than 150 mg/dLBorderline High Triglyceride 150-199 mg/dLHigh Triglyceride: 200-499 mg/dLVery High Triglyceride: greater than or equal to 5OO mg/dL Cholesterol 131 <200 mg/dL [facility] Comment:Desirable Cholestero l: less than 200 mg/dLBorderline High Cholesterol: 200-239 mg/dLHigh Cholesterol: greater than 239 mg/dL LDL Cholesterol Calculated 62 <100 mg/dL [facility] Comment:Desirable LDL: less than 100 mg/dLNear Optimal/Above Optimal LDL: 110- 129 mg/dLBorderline High LDL: 130-159 mg/dLHigh LDL: 160-189 mg/dLVery High LDL: greater than or equal to 190 mg/dL HDL Cholesterol 58 >40 mg/dL [facility] Comment:Desirable HDL: great er than 40 mg/dL Note: This HDL assay may give artificially low results in patients with liver disease. Blood Venous blood specimen / Unknown 04/22/2025 10:25 AM EDT 04/22/2025 11:13 AM EDT Sarah Ziegler MD LAB BLOOD ORDERAB LES Final Result [facility] [address] [place] [phone] * Comprehensive Metabolic Panel (04/22/2025 10:25 AM EDT) Only the most recent of2 resultswithin the time period is included. Sodium 139 135 - 145 mmol/L [facility] Potassium 3.7 3.3 - 5.1 mmol/L [facility] Chloride 102 96 - 108 mmol/L [facility] Carbon Dioxide 29 22 - 29 mmol/L [facility] Anion Gap 12 12 - 20 [facility] Urea Nitrogen (BUN) 14 9 - 16 mg/dL [facility] Creatinine, Serum 0.66 0.5 - 1.4 mg/dL [facility] Estimated Glomerular Filt Rate >60 [facility] Comment:Chronic Kidney Disea se: Estimated GFR < 60 mL/min/[id number] Kidney Disease: Estimated GFR < 15 mL/min/1.73m2 Glucose 115 60 - 115 mg/dL [facility] Calcium 9.3 8.4 - 10.2 mg/dL [facility] Bilirubin, Total 0.5 0.0 - 1.0 mg/dL [facility] Aspartate Amino Transferase 31 5 - 37 U/L [facility] Alanine Aminotransferase 23 0 - 40 U/L [facility] Total Protein 7.2 6.5 - 8.0 g/dL [facility] Albumin Level 4.4 3.5 - 5.0 g/dL [facility] Alkaline Phosphatase 59 39 - 117 U/L [facility] Blood Venous blood specimen / Unknown 04/22/2025 10:25 AM EDT 04/22/2025 11:13 AM EDT Sarah Ziegler MD LAB BLOOD ORDERAB LES Final Result [facility] [address] [place] [phone] * Colonoscopy (05/31/2017) Colonoscopy Normal Normal Narrative Kristen Bowman - 05/31/2017 Repeat in 5 years us Historical Provider HEALTH MAINTENANCE Final Result from Last 3 Months or Most Recently Relevant to Health Maintenance [facility]O D-SNP[facility] [place] [id number] [place] [address] * Guarantor: Gonzales De La Torre Account Type Relation to Patient Date of Phone Billing Address [facility] [place] [address] * Guarantor: Gonzales De La Torre Account Type Relation to Patient Date of Phone Billing Address Personal/Family Self [facility] [place] [address] Care Teams Interior Assemblies Developer Prover Relationship Specialty Start Date End Date Sarah Canseco MD [address] [place] [address] PCP - General Internal Medicine 02/18/23 Daron Veliz MD [address] [place] [address] Gastroenterology 05/01/25
--- OUTSIDE RECORDS SUMMARY | 2025-07-19 08:40 | XMS_ITS | Encounter Summary ---
Author Organization [employer] Address [address] [place] [address] Care Team Providers Care Smokehouse Worker Name Role Phone Sarah Canseco MD Primary Care Pro vider Daron Veliz MD Unavailable Encounter Details Date Type Department Care Team (Late st Contact Info) Description 08/05/2023 Abstract [facility] [address] [place], [place] [id number] Kristen Bowman Social History Tobacco Use Types [...] documented as of this encounter Care Teams Smokehouse Worker Relationship Specialty Start Date End Date Sarah Canseco MD [address] [place] [phone] PCP - General Internal Medicine 02/18/23 Daron Veliz MD [address] [place] [address] Gastroenterology 05/01/25 documented as of this encounter
== END 2025-07-19 08:27 | disposition home or self-care (01) ==
LOC: HO.CT 08:26
PROVIDERS: PCP Student in an Organized Health Care Education/Training Program; Visit Provider Student in an Organized Health Care Education/Training Program
DX: R63.4 Abnormal weight loss (principal); J43.9 Emphysema, unspecified; F17.200 Nicotine dependence, unspecified, uncomplicated
CPT/HCPCS: 71250

== ENCOUNTER → 2025-07-19 08:28 | Outpatient (BNV) | payer OTHER, SELFPAY | PROVIDERS: PCP Student in an Organized Health Care Education/Training Program; Visit Provider Radiology Diagnostic Radiology | DX: J43.8 Other emphysema (principal) | CPT/HCPCS: 71250 ==